=== PATIENT | male | born 1960 | race American Indian/Alaskan Native ===

== ENCOUNTER 2018-10-22 19:48 | Inpatient (IN) | payer MEDICARE ==
[2018-10-22] MEDS ORDERED: ZOFRAN IV ONE ×2 (20:07→20:50)
[2018-10-22] MEDS ORDERED: ZOFRAN ONE (20:08)
[2018-10-22] MEDS ORDERED: NACL 0.9% 500 ML 500 ML IV ONE (20:08)
--- NOTE | 2018-10-22 20:16 | Emergency Department Report ---
ED Altered Mental Status HPI - General Chief Complaint: Altered Mental Status Stated Complaint: AMS Time Seen by Provider: 10/22/18 20:03 Source: EMS, RN notes reviewed, old records reviewed Mode of arrival: Stretcher Limitations: Altered Mental Status - History of Present Illness Initial Comments: Mr. Villegas is a 58 yo male with hx of diabetes mellitus and dyslipidemia who presents with altered mental status. He has been sleeping all day. Last known normal noon. He is normally conversant and ambulatory. Has evidence of left foot amputation. He was discovered by nephew. No reported hx of known depression. He has been a little down since a close family friend left the home in 2017. Has been lonely. Limited hx from EMR. ONly one previous ED visit in 2012 for foot pain. Patient is currently altered and nonverbal. MD Complaint: altered mental status, decreased responsiveness -: This afternoon Severity: severe Consistency of Symptoms: constant Context: diabetes - Related Data Home Medications Medication Instructions Recorded Confirmed Last Taken No Known Home Medications [No 03/24/13 03/24/13 Unknown Reported Home Medications] Allergies Allergy/AdvReac Type Severity Reaction Status Date / Time No Known Allergies Allergy Verified 03/24/13 05:37 ED Review of Systems ROS: Stated complaint: AMS Other details as noted in HPI Comment: Unobtainable due to pts medical conditions (altered mental status) ED Past Medical Hx - Past Medical History Previous Medical History?: Yes Hx Diabetes: Yes - Surgical History Additional Surgical History: Hernia Repair, Chest tube placement - Social History Smoking Status: Never Smoker Substance Use Type: None - Medications Home Medications: Home Medications Medication Instructions Recorded Confirmed Last Taken Type No Known Home Medications [No 03/24/13 03/24/13 Unknown History Reported Home Medications] ED Physical Exam - General Limitations: Altered Mental Status General appearance: lethargic, other (yawning, moving head, shrugging, will nod to questions) - Head Head exam: Present: atraumatic, normocephalic - Eye Eye exam: Present: scleral icterus, conjunctival injection - ENT ENT exam: Present: mucous membranes dry - Neck Neck exam: Present: normal inspection, full ROM. Absent: tenderness, meningismus - Respiratory Respiratory exam: Present: normal lung sounds bilaterally. Absent: respiratory distress, wheezes, rales, rhonchi - Cardiovascular Cardiovascular Exam: Present: regular rate, normal rhythm, normal heart sounds - GI/Abdominal GI/Abdominal exam: Present: soft. Absent: distended, tenderness, guarding, rebound - External exam: Present: normal external exam - Extremities Exam Extremities exam: Present: normal inspection - Neurological Exam Neurological exam: Present: altered - Psychiatric Psychiatric exam: Present: other (odd affect) - Skin Skin exam: Present: intact - Assessment Assessment Interval: Baseline - Level of Consciousness 1a. Level of Consciousness: arousable/minor stimuli - LOC Questions 1b. LOC Questions: aphasic - LOC Command 1c. LOC Commands: performs 1 task correctly - Best Gaze 2. Best Gaze: normal - Visual 3. Visual: no visual loss - Facial Palsy 4. Facial Palsy: normal symmetrical movement - Motor Arm 5b. Motor Arm Right: no drift - Motor Leg 6a. Motor Leg Left: no drift 6b. Motor Leg Right: no drift - Limb Ataxia 7. Limb Ataxia: absent - Sensory 8. Sensory: normal - Best Language 9. Best Language: severe aphasia - Dysarthria 10. Dysarthria: severe dysarthria - Extinction and Inattention 11. Extinction/Inattention: no abnormality ED Course Vital Signs 10/22/18 10/22/18 10/22/18 19:54 19:57 21:10 Temperature 97.4 F L Pulse Rate 86 89 99 H Respiratory 18 19 23 Rate Blood Pressure 130/64 125/74 154/80 [Right] O2 Sat by Pulse 99 98 99 Oximetry 10/22/18 21:53 Temperature Pulse Rate 102 H Respiratory 24 Rate Blood Pressure 115/63 [Right] O2 Sat by Pulse 99 Oximetry - Moderate Sedation Indications: other (vascath insertion by vascular surgeon for emergent dialysis) ASA Class: II Mallampati Airway Score: 2 Preparation: laboratory monitor applied, pulse oximeter, capnometry used, supplemental O2 applied, reversal agents at bedside, IV secured Ketamine: IV Ketamine Dose: 80 Complications: none Patient Tolerated Procedure: well Additional Comments: Family members consented for hemodialysis and vascath insertion with nephrol ogist showroom consultant. Moderate sedation required for vascath access due to acute encephalopathy. - Lab Data Result diagrams: 10/22/18 20:10 10/22/18 20:10 Lab Results 10/22/18 10/22/18 10/22/18 Range/Units 19:59 20:09 20:10 WBC 12.7 H (4.5-11.0) K/mm3 RBC 4.91 (3.65-5.03) M/mm3 Hgb 15.0 (11.8-15.2) gm/dl Hct 42.5 (35.5-45.6) % MCV 87 (84-94) fl MCH 31 (28-32) pg MCHC 35 H (32-34) % RDW 14.0 (13.2-15.2) % Plt Count 265 (140-440) K/mm3 Lymph # [employer] Add Manual Diff Complete Total Counted 100 Seg Neuts % (Manual) 62.0 (40.0-70.0) % Band Neutrophils % 1.0 % Lymphocytes % (Manual) 24.0 (13.4-35.0) % Reactive Lymphs % (Man) 0 % Monocytes % (Manual) 12.0 H (0.0-7.3) % Eosinophils % (Manual) 0 (0.0-4.3) % Basophils % (Manual) 1.0 (0.0-1.8) % Metamyelocytes % 0 % Myelocytes % 0 % Promyelocytes % 0 % Blast Cells % 0 % Nucleated RBC % Not Reportable Seg Neutrophils # Man 7.9 H (1.8-7.7) K/mm3 Band Neutrophils # 0.1 K/mm3 Lymphocytes # (Manual) 3.0 (1.2-5.4) K/mm3 Abs React Lymphs (Man) 0.0 K/mm3 Monocytes # (Manual) 1.5 H (0.0-0.8) K/mm3 Eosinophils # (Manual) 0.0 (0.0-0.4) K/mm3 Basophils # (Manual) 0.1 (0.0-0.1) K/mm3 Metamyelocytes # 0.0 K/mm3 Myelocytes # 0.0 K/mm3 Promyelocytes # 0.0 K/mm3 Blast Cells # 0.0 K/mm3 WBC Morphology Not Reportable Hypersegmented Neuts Not Reportable Hyposegmented Neuts Not Reportable Hypogranular Neuts Not Reportable Smudge Cells Not Reportable Toxic Granulation Not Reportable Toxic Vacuolation Not Reportable Dohle Bodies Not Reportable Pelger-Huet Anomaly Not Reportable Martha Rods Not Reportable Platelet Estimate Appears normal Clumped Platelets Not Reportable Plt Clumps, EDTA Not Reportable Large Platelets Not Reportable Giant Platelets Not Reportable Platelet Satelliting Not Reportable Plt Morphology Comment Not Reportable RBC Morphology Normal Dimorphic RBCs Not Reportable Polychromasia Not Reportable Hypochromasia Not Reportable Poikilocytosis Not Reportable Anisocytosis Not Reportable Microcytosis Not Reportable Macrocytosis Not Reportable Spherocytes Not Reportable Pappenheimer Bodies Not Reportable Sickle Cells Not Reportable Target Cells Not Reportable Tear Drop Cells Not Reportable Ovalocytes Not Reportable Helmet Cells Not Reportable Tristan-Houlton Bodies Not Reportable Burton Rings Not Reportable Gee Cells Not Reportable Bite Cells Not Reportable Crenated Cell Not Reportable Elliptocytes Not Reportable Acanthocytes (Spur) Not Reportable Rouleaux Not Reportable Hemoglobin C Crystals Not Reportable Schistocytes Not Reportable Malaria parasites Not Reportable Trip Bodies Not Reportable Hem Pathologist Commnt No PT (12.2-14.9) Sec. INR (0.87-1.13) APTT (24.2-36.6) Sec. Sodium (137-145) mmol/L Potassium (3.6-5.0) mmol/L Chloride (98-107) mmol/L Carbon Dioxide (22-30) mmol/L Anion Gap mmol/L BUN (9-20) mg/dL Creatinine (0.8-1.5) mg/dL Estimated GFR ml/min BUN/Creatinine Ratio % Glucose (75-100) mg/dL POC Glucose 118 H (70-105) Lactic Acid (0.7-2.0) mmol/L Calcium (8.4-10.2) mg/dL Total Bilirubin (0.1-1.2) mg/dL Direct Bilirubin (0-0.2) mg/dL Indirect Bilirubin mg/dL AST (5-40) units/L ALT (7-56) units/L Alkaline Phosphatase (35-129) units/L Ammonia (25-60) umol/L Troponin T (0.00-0.029) ng/mL Total Protein (6.3-8.2) g/dL Albumin (3.9-5) g/dL Albumin/Globulin Ratio % TSH (0.270-4.200) mlU/mL Urine Color (Yellow) Urine Turbidity (Clear) Urine pH (5.0-7.0) Ur Specific [place] (1.003-1.030) Urine Protein (Negative) mg/dL Urine Glucose (UA) (Negative) mg/dL Urine Ketones (Negative) mg/dL Urine Blood (Negative) Urine Nitrite (Negative) Urine Bilirubin (Negative) Urine Urobilinogen (<2.0) mg/dL Ur Leukocyte Esterase (Negative) Urine WBC (Auto) (0.0-6.0) /HPF Urine RBC (Auto) (0.0-6.0) /HPF U Epithel Cells (Auto) (0-13.0) /HPF Salicylates (2.8-20.0) mg/dL Urine Opiates Screen Presumptive negative Urine Methadone Screen Presumptive negative Acetaminophen (10.0-30.0) ug/mL Ur Barbiturates Screen Presumptive negative Ur Phencyclidine Scrn Presumptive negative Ur Amphetamines Screen Presumptive negative U Benzodiazepines Scrn Presumptive negative Urine Cocaine Screen Presumptive negative U Marijuana (THC) Screen Presumptive negative Drugs of Abuse Note Disclamer Plasma/Serum Alcohol (0-0.07) % 10/22/18 10/22/18 10/22/18 Range/Units 20:10 20:10 20:10 WBC (4.5-11.0) K/mm3 RBC (3.65-5.03) M/mm3 Hgb (11.8-15.2) gm/dl Hct (35.5-45.6) % MCV (84-94) fl MCH (28-32) pg MCHC (32-34) % RDW (13.2-15.2) % Plt Count (140-440) K/mm3 Lymph # Add Manual Diff Total Counted Seg Neuts % (Manual) (40.0-70.0) % Band Neutrophils % % Lymphocytes % (Manual) (13.4-35.0) % Reactive Lymphs % (Man) % Monocytes % (Manual) (0.0-7.3) % Eosinophils % (Manual) (0.0-4.3) % Basophils % (Manual) (0.0-1.8) % Metamyelocytes % % Myelocytes % % Promyelocytes % % Blast Cells % % Nucleated RBC % Seg Neutrophils # Man (1.8-7.7) K/mm3 Band Neutrophils # K/mm3 Lymphocytes # (Manual) (1.2-5.4) K/mm3 Abs React Lymphs (Man) K/mm3 Monocytes # (Manual) (0.0-0.8) K/mm3 Eosinophils # (Manual) (0.0-0.4) K/mm3 Basophils # (Manual) (0.0-0.1) K/mm3 Metamyelocytes # K/mm3 Myelocytes # K/mm3 Promyelocytes # K/mm3 Blast Cells # K/mm3 WBC Morphology Hypersegmented Neuts Hyposegmented Neuts Hypogranular Neuts Smudge Cells Toxic Granulation Toxic Vacuolation Dohle Bodies Pelger-Huet Anomaly Martha Rods Platelet Estimate Clumped Platelets Plt Clumps, EDTA Large Platelets Giant Platelets Platelet Satelliting Plt Morphology Comment RBC Morphology Dimorphic RBCs Polychromasia Hypochromasia Poikilocytosis Anisocytosis Microcytosis Macrocytosis Spherocytes Pappenheimer Bodies Sickle Cells Target Cells Tear Drop Cells Ovalocytes Helmet Cells Tristan-Houlton Bodies Burton Rings [place] Cells Bite Cells Crenated Cell Elliptocytes Acanthocytes (Spur) Rouleaux Hemoglobin C Crystals Schistocytes Malaria parasites Trip Bodies Hem Pathologist Commnt PT (12.2-14.9) Sec. INR (0.87-1.13) APTT (24.2-36.6) Sec. Sodium 139 (137-145) mmol/L Potassium 3.4 L (3.6-5.0) mmol/L Chloride 99.5 (98-107) mmol/L Carbon Dioxide 21 L (22-30) mmol/L Anion Gap 22 mmol/L BUN 14 (9-20) mg/dL Creatinine 0.8 (0.8-1.5) mg/dL Estimated GFR > 60 ml/min BUN/Creatinine Ratio 18 % Glucose 137 H (75-100) mg/dL POC Glucose (70-105) Lactic Acid (0.7-2.0) mmol/L Calcium 9.8 (8.4-10.2) mg/dL Total Bilirubin (0.1-1.2) mg/dL Direct Bilirubin (0-0.2) mg/dL Indirect Bilirubin mg/dL AST (5-40) units/L ALT (7-56) units/L Alkaline Phosphatase (35-129) units/L Ammonia 43.0 (25-60) umol/L Troponin T (0.00-0.029) ng/mL Total Protein (6.3-8.2) g/dL Albumin (3.9-5) g/dL Albumin/Globulin Ratio % TSH (0.270-4.200) mlU/mL Urine Color (Yellow) Urine Turbidity (Clear) Urine pH (5.0-7.0) Ur Specific [place] (1.003-1.030) Urine Protein (Negative) mg/dL Urine Glucose (UA) (Negative) mg/dL Urine Ketones (Negative) mg/dL Urine Blood (Negative) Urine Nitrite (Negative) Urine Bilirubin (Negative) Urine Urobilinogen (<2.0) mg/dL Ur Leukocyte Esterase (Negative) Urine WBC (Auto) (0.0-6.0) /HPF Urine RBC (Auto) (0.0-6.0) /HPF U Epithel Cells (Auto) (0-13.0) /HPF Salicylates (2.8-20.0) mg/dL Urine Opiates Screen Urine Methadone Screen Acetaminophen (10.0-30.0) ug/mL Ur Barbiturates Screen Ur Phencyclidine Scrn Ur Amphetamines Screen U Benzodiazepines Scrn Urine Cocaine Screen U Marijuana (THC) Screen Drugs of Abuse Note Plasma/Serum Alcohol < 0.01 (0-0.07) % 10/22/18 10/22/18 10/22/18 Range/Units 20:10 20:10 20:10 WBC (4.5-11.0) K/mm3 RBC (3.65-5.03) M/mm3 Hgb (11.8-15.2) gm/dl Hct (35.5-45.6) % MCV (84-94) fl MCH (28-32) pg MCHC (32-34) % RDW (13.2-15.2) % Plt Count (140-440) K/mm3 Lymph # Add Manual Diff Total Counted Seg Neuts % (Manual) (40.0-70.0) % Band Neutrophils % % Lymphocytes % (Manual) (13.4-35.0) % Reactive Lymphs % (Man) % Monocytes % (Manual) (0.0-7.3) % Eosinophils % (Manual) (0.0-4.3) % Basophils % (Manual) (0.0-1.8) % Metamyelocytes % % Myelocytes % % Promyelocytes % % Blast Cells % % Nucleated RBC % Seg Neutrophils # Man (1.8-7.7) K/mm3 Band Neutrophils # K/mm3 Lymphocytes # (Manual) (1.2-5.4) K/mm3 Abs React Lymphs (Man) K/mm3 Monocytes # (Manual) (0.0-0.8) K/mm3 Eosinophils # (Manual) (0.0-0.4) K/mm3 Basophils # (Manual) (0.0-0.1) K/mm3 Metamyelocytes # K/mm3 Myelocytes # K/mm3 Promyelocytes # K/mm3 Blast Cells # K/mm3 WBC Morphology Hypersegmented Neuts Hyposegmented Neuts Hypogranular Neuts Smudge Cells Toxic Granulation Toxic Vacuolation Dohle Bodies Pelger-Huet Anomaly Martha Rods Platelet Estimate Clumped Platelets Plt Clumps, EDTA Large Platelets Giant Platelets Platelet Satelliting Plt Morphology Comment RBC Morphology Dimorphic RBCs Polychromasia Hypochromasia Poikilocytosis Anisocytosis Microcytosis Macrocytosis Spherocytes Pappenheimer Bodies Sickle Cells Target Cells Tear Drop Cells Ovalocytes Helmet Cells Tristan-Houlton Bodies Burton Rings [place] Cells Bite Cells Crenated Cell Elliptocytes Acanthocytes (Spur) Rouleaux Hemoglobin C Crystals Schistocytes Malaria parasites Trip Bodies Hem Pathologist Commnt PT 12.9 (12.2-14.9) Sec. INR 1.00 (0.87-1.13) APTT 25.9 (24.2-36.6) Sec. Sodium (137-145) mmol/L Potassium (3.6-5.0) mmol/L Chloride (98-107) mmol/L Carbon Dioxide (22-30) mmol/L Anion Gap mmol/L BUN (9-20) mg/dL Creatinine (0.8-1.5) mg/dL Estimated GFR ml/min BUN/Creatinine Ratio % Glucose (75-100) mg/dL POC Glucose (70-105) Lactic Acid 1.90 (0.7-2.0) mmol/L Calcium (8.4-10.2) mg/dL Total Bilirubin 0.20 (0.1-1.2) mg/dL Direct Bilirubin < 0.2 (0-0.2) mg/dL Indirect Bilirubin 0.0 mg/dL AST 15 (5-40) units/L ALT 14 (7-56) units/L Alkaline Phosphatase 47 (35-129) units/L Ammonia (25-60) umol/L Troponin T < 0.010 (0.00-0.029) ng/mL Total Protein 7.6 (6.3-8.2) g/dL Albumin 4.5 (3.9-5) g/dL Albumin/Globulin Ratio 1.5 % TSH (0.270-4.200) mlU/mL Urine Color (Yellow) Urine Turbidity (Clear) Urine pH (5.0-7.0) Ur Specific [place] (1.003-1.030) Urine Protein (Negative) mg/dL Urine Glucose (UA) (Negative) mg/dL Urine Ketones (Negative) mg/dL Urine Blood (Negative) Urine Nitrite (Negative) Urine Bilirubin (Negative) Urine Urobilinogen (<2.0) mg/dL Ur Leukocyte Esterase (Negative) Urine WBC (Auto) (0.0-6.0) /HPF Urine RBC (Auto) (0.0-6.0) /HPF U Epithel Cells (Auto) (0-13.0) /HPF Salicylates (2.8-20.0) mg/dL Urine Opiates Screen Urine Methadone Screen Acetaminophen (10.0-30.0) ug/mL Ur Barbiturates Screen Ur Phencyclidine Scrn Ur Amphetamines Screen U Benzodiazepines Scrn Urine Cocaine Screen U Marijuana (THC) Screen Drugs of Abuse Note Plasma/Serum Alcohol (0-0.07) % 10/22/18 10/22/18 10/22/18 Range/Units 20:10 20:10 20:10 WBC (4.5-11.0) K/mm3 RBC (3.65-5.03) M/mm3 Hgb (11.8-15.2) gm/dl Hct (35.5-45.6) % MCV (84-94) fl MCH (28-32) pg MCHC (32-34) % RDW (13.2-15.2) % Plt Count (140-440) K/mm3 Lymph # Add Manual Diff Total Counted Seg Neuts % (Manual) (40.0-70.0) % Band Neutrophils % % Lymphocytes % (Manual) (13.4-35.0) % Reactive Lymphs % (Man) % Monocytes % (Manual) (0.0-7.3) % Eosinophils % (Manual) (0.0-4.3) % Basophils % (Manual) (0.0-1.8) % Metamyelocytes % % Myelocytes % % Promyelocytes % % Blast Cells % % Nucleated RBC % Seg Neutrophils # Man (1.8-7.7) K/mm3 Band Neutrophils # K/mm3 Lymphocytes # (Manual) (1.2-5.4) K/mm3 Abs React Lymphs (Man) K/mm3 Monocytes # (Manual) (0.0-0.8) K/mm3 Eosinophils # (Manual) (0.0-0.4) K/mm3 Basophils # (Manual) (0.0-0.1) K/mm3 Metamyelocytes # K/mm3 Myelocytes # K/mm3 Promyelocytes # K/mm3 Blast Cells # K/mm3 WBC Morphology Hypersegmented Neuts Hyposegmented Neuts Hypogranular Neuts Smudge Cells Toxic Granulation Toxic Vacuolation Dohle Bodies Pelger-Huet Anomaly Martha Rods Platelet Estimate Clumped Platelets Plt Clumps, EDTA Large Platelets Giant Platelets Platelet Satelliting Plt Morphology Comment RBC Morphology Dimorphic RBCs Polychromasia Hypochromasia Poikilocytosis Anisocytosis Microcytosis Macrocytosis Spherocytes Pappenheimer Bodies Sickle Cells Target Cells Tear Drop Cells Ovalocytes Helmet Cells Tristan-Houlton Bodies Burton Rings Gee Cells Bite Cells Crenated Cell Elliptocytes Acanthocytes (Spur) Rouleaux Hemoglobin C Crystals Schistocytes Malaria parasites Trip Bodies Hem Pathologist Commnt PT (12.2-14.9) Sec. INR (0.87-1.13) APTT (24.2-36.6) Sec. Sodium (137-145) mmol/L Potassium (3.6-5.0) mmol/L Chloride (98-107) mmol/L Carbon Dioxide (22-30) mmol/L Anion Gap mmol/L BUN (9-20) mg/dL Creatinine (0.8-1.5) mg/dL Estimated GFR ml/min BUN/Creatinine Ratio % Glucose (75-100) mg/dL POC Glucose (70-105) Lactic Acid (0.7-2.0) mmol/L Calcium (8.4-10.2) mg/dL Total Bilirubin (0.1-1.2) mg/dL Direct Bilirubin (0-0.2) mg/dL Indirect Bilirubin mg/dL AST (5-40) units/L ALT (7-56) units/L Alkaline Phosphatase (35-129) units/L Ammonia (25-60) umol/L Troponin T (0.00-0.029) ng/mL Total Protein (6.3-8.2) g/dL Albumin (3.9-5) g/dL Albumin/Globulin Ratio % TSH 1.150 (0.270-4.200) mlU/mL Urine Color (Yellow) Urine Turbidity (Clear) Urine pH (5.0-7.0) Ur Specific [place] (1.003-1.030) Urine Protein (Negative) mg/dL Urine Glucose (UA) (Negative) mg/dL Urine Ketones (Negative) mg/dL Urine Blood (Negative) Urine Nitrite (Negative) Urine Bilirubin (Negative) Urine Urobilinogen (<2.0) mg/dL Ur Leukocyte Esterase (Negative) Urine WBC (Auto) (0.0-6.0) /HPF Urine RBC (Auto) (0.0-6.0) /HPF U Epithel Cells (Auto) (0-13.0) /HPF Salicylates 34.0 H (2.8-20.0) mg/dL Urine Opiates Screen Urine Methadone Screen Acetaminophen 146.2 H (10.0-30.0) ug/mL Ur Barbiturates Screen Ur Phencyclidine Scrn Ur Amphetamines Screen U Benzodiazepines Scrn Urine Cocaine Screen U Marijuana (THC) Screen Drugs of Abuse Note Plasma/Serum Alcohol (0-0.07) % 10/22/18 10/22/18 Range/Units 20:32 22:01 WBC (4.5-11.0) K/mm3 RBC (3.65-5.03) M/mm3 Hgb (11.8-15.2) gm/dl Hct (35.5-45.6) % MCV (84-94) fl MCH (28-32) pg MCHC (32-34) % RDW (13.2-15.2) % Plt Count (140-440) K/mm3 Lymph # Add Manual Diff Total Counted Seg Neuts % (Manual) (40.0-70.0) % Band Neutrophils % % Lymphocytes % (Manual) (13.4-35.0) % Reactive Lymphs % (Man) % Monocytes % (Manual) (0.0-7.3) % Eosinophils % (Manual) (0.0-4.3) % Basophils % (Manual) (0.0-1.8) % Metamyelocytes % % Myelocytes % % Promyelocytes % % Blast Cells % % Nucleated RBC % Seg Neutrophils # Man (1.8-7.7) K/mm3 Band Neutrophils # K/mm3 Lymphocytes # (Manual) (1.2-5.4) K/mm3 Abs React Lymphs (Man) K/mm3 Monocytes # (Manual) (0.0-0.8) K/mm3 Eosinophils # (Manual) (0.0-0.4) K/mm3 Basophils # (Manual) (0.0-0.1) K/mm3 Metamyelocytes # K/mm3 Myelocytes # K/mm3 Promyelocytes # K/mm3 Blast Cells # K/mm3 WBC Morphology Hypersegmented Neuts Hyposegmented Neuts Hypogranular Neuts Smudge Cells Toxic Granulation Toxic Vacuolation Dohle Bodies Pelger-Huet Anomaly Martha Rods Platelet Estimate Clumped Platelets Plt Clumps, EDTA Large Platelets Giant Platelets Platelet Satelliting Plt Morphology Comment RBC Morphology Dimorphic RBCs Polychromasia Hypochromasia Poikilocytosis Anisocytosis Microcytosis Macrocytosis Spherocytes Pappenheimer Bodies Sickle Cells Target Cells Tear Drop Cells Ovalocytes Helmet Cells Tristan-Houlton Bodies Burton Rings [place] Cells Bite Cells Crenated Cell Elliptocytes Acanthocytes (Spur) Rouleaux Hemoglobin C Crystals Schistocytes Malaria parasites Trip Bodies Hem Pathologist Commnt PT (12.2-14.9) Sec. INR (0.87-1.13) APTT (24.2-36.6) Sec. Sodium (137-145) mmol/L Potassium (3.6-5.0) mmol/L Chloride (98-107) mmol/L Carbon Dioxide (22-30) mmol/L Anion Gap mmol/L BUN (9-20) mg/dL Creatinine (0.8-1.5) mg/dL Estimated GFR ml/min BUN/Creatinine Ratio % Glucose (75-100) mg/dL POC Glucose (70-105) Lactic Acid (0.7-2.0) mmol/L Calcium (8.4-10.2) mg/dL Total Bilirubin (0.1-1.2) mg/dL Direct Bilirubin (0-0.2) mg/dL Indirect Bilirubin mg/dL AST (5-40) units/L ALT (7-56) units/L Alkaline Phosphatase (35-129) units/L Ammonia (25-60) umol/L Troponin T (0.00-0.029) ng/mL Total Protein (6.3-8.2) g/dL Albumin (3.9-5) g/dL Albumin/Globulin Ratio % TSH (0.270-4.200) mlU/mL Urine Color Yellow (Yellow) Urine Turbidity Clear (Clear) Urine pH 7.0 (5.0-7.0) Ur Specific [place] 1.013 (1.003-1.030) Urine Protein <15 mg/dl (Negative) mg/dL Urine Glucose (UA) 50 (Negative) mg/dL Urine Ketones Neg (Negative) mg/dL Urine Blood Neg (Negative) Urine Nitrite Neg (Negative) Urine Bilirubin Neg (Negative) Urine Urobilinogen < 2.0 (<2.0) mg/dL Ur Leukocyte Esterase Neg (Negative) Urine WBC (Auto) < 1.0 (0.0-6.0) /HPF Urine RBC (Auto) 2.0 (0.0-6.0) /HPF U Epithel Cells (Auto) < 1.0 (0-13.0) /HPF Salicylates 40.1 H (2.8-20.0) mg/dL Urine Opiates Screen Urine Methadone Screen Acetaminophen (10.0-30.0) ug/mL Ur Barbiturates Screen Ur Phencyclidine Scrn Ur Amphetamines Screen U Benzodiazepines Scrn Urine Cocaine Screen U Marijuana (THC) Screen Drugs of Abuse Note Plasma/Serum Alcohol (0-0.07) % 10/22/18 21:46 EKG obtained 2101 NSR 95 bpm nl axis prolonged QTC diffuse St depression - Radiology Data Radiology results: report reviewed - Medical Decision Making Mr. Villegas presents with altered mental status, acute metabolic toxic encephalopathy. Upon my evaluation he did seem to answer some questions with head and arm gestures. However he was aphasic. He continued to have vomiting. Cold stroke with activated. I spoke with stepdaughter and daughter. With the findings of toxic salicylate and acetaminophen levels, suspect intentional overdose. According to hx, patient was sleeping all day. Suspect overdose occurred earlier this morning. I asked brandee to go to to home and look for pill bottles. I spoke with [place] poison control who agreed with IV acetadote. Recommended KUB to rule out bezoar and q2h salicylate levels. spoke with Dr. Lopes toxicolog ist. She recommended alkalinization with with sodium bicarbonate infusion. Also recommended potassium aggressive repletion. Also recommended dialysis considering altered mental status. Altered Mental status could reflect cerebral edema Brandee found multliple empty and half empty bottles near his bed and on night stand. Stomach relief bismuth subsaliicylate, isopropryl alcohol, imodi um, headache relief = two bottles empty which previously contained 200 caplets with acetaminophen, aspirin and caffeine. Each tablet contains acetaminophen 250 mg aspirin 250 mg caffeine [address] Atkinson pharmacy technician assistant evaluated patient and arranged from dialysis. Dr. Goel vascular surgeon placed vascath. I discussed case again with flower cutter Dr. Lopes who strongly recommended against intubation. Mechanical ventilation will not keep up with respiratory drive and worsening acidotic state. She encouraged moderate sedation for vascath insertion. Ketamine provided adequate sedation. Unknown last PO intake in altered patient. Dr. Bill polymer materials consultant consulted Dr. Salgado hospitalist will admit. admitted to ICU in guarded condition 1013 involuntary hold instituted Critical Care Time: Yes Critical care time in (mins) excluding proc time.: 100 Critical care attestation.: If time is entered above; I have spent that time in minutes in the direct care of this critically ill patient, excluding procedure time. 100 minutes of critical care time excluding procedures were used in the care of the patient. Patient required multiple assessments and interventions. I spoke extensively with Sr. Byrne by phone. I spoke with brandee at the bedside. I spoke with neurologist who evaluated patient via video camera. I also spoke with [place] poison control. I spoke with toxicology. I spoke with vascular surgeon,. I reviewed the electronic medical record. I spoke with consultants involved in the care of the patient. ED Disposition Clinical Impression: Acute metabolic encephalopathy, Intentional drug overdose, Acetaminophen overdose, Salicylate overdose, Isopropyl alcohol poisoning Disposition: DC-09 OP ADMIT IP TO THIS HOSP Is pt being admited?: Yes Does the pt Need Aspirin: No Condition: Stable
[2018-10-22 20:19] LABS: Hematocrit 42.5 % (35.5-45.6); Mean Corpuscular HGB Conc 35 % (32-34); Mean Corpuscular Volume 87 fl (84-94); Platelet Count 265 K/mm3 (140-440); Red Blood Count 4.91 M/mm3 (3.65-5.03)
[2018-10-22 20:34] LABS: Partial Thromboplastin Time 25.9 Sec. (24.2-36.6)
[2018-10-22 20:40] LABS: BUN/Creatinine Ratio 18; Blood Urea Nitrogen 14 mg/dL (9-20); Calcium 9.8 mg/dL (8.4-10.2); Hemolysis Index 10
[2018-10-22 20:42] LABS: Alanine Aminotransferase 14 units/L (7-56); Albumin 4.5 g/dL (3.9-5)
[2018-10-22 20:48] LABS: Bilirubin,Direct < 0.2 mg/dL (0-0.2)
[2018-10-22 20:51] LABS: Bilirubin,Urine NEG (Negative); Blood,Urine NEG (Negative); Color,Urine Yellow (Yellow); Protein,Urine <15 mg/dL mg/dL (Negative); Urobilinogen,Urine < 2.0 mg/dL (<2.0); WBC,Urine < 1.0 /HPF (0.0-6.0)
[2018-10-22 20:58] LABS: Amphetamine Screen,Urine PRESUMPTIVE NEGATIVE; Benzodiazepines Screen,Urine PRESUMPTIVE NEGATIVE; Cannabinoid Screen,Urine PRESUMPTIVE NEGATIVE; Cocaine Screen,Urine PRESUMPTIVE NEGATIVE; Methadone Screen,Urine PRESUMPTIVE NEGATIVE; Opiate Screen,Urine PRESUMPTIVE NEGATIVE
--- NOTE | 2018-10-22 20:58 | Consultation ---
History of Present Illness History of present illness: [facility] Consult [facility] Impression: Patient with encephalopathy, nausea/vomiting. Only focal deficits noted are mutism and very slight left nasolabial fold flattening of unknown chronicity. Given mutism, will rule out LVO with CTA head/neck. His salicylate and APAP levels are elevated, as is his WBC count, so this may be more of a toxic/metabolic process. Not a tpa candidate due to: out of window Differential Diagnosis: 1. Cardioembolic stroke 2. Small vessel disease/lacune 3. Thromboembolic, swlpbj-ga-bzkadi mechanism 4. Hypercoagulable state-related infarct 5. Transient ischemic attack 6. Thrombotic mechanism, large artery disease 7. Toxic/metabolic encephalopathy Comments: Door time: 1947 [facility] contacted: 2037 [facility] at bedside: 2041 NIHSS assessment time: 2052 (pt in CT on log in) Recommendations: CTA head/neck to rule out LVO inpatient neurology consultation Inpatient stroke evaluation as per Neurology/ Internal Medicine Discussed with ED MD CC: stroke alert History of Present Illness Patient is a58 year old man with a history of DM, left AKA, HLD who presents with AMS. Last seen normal at 1200 by family. Family thought he was napping through the day, but this evening it became evident he was altered. He has been mute and not following commands. He was noted to have vomiting in the ED. Diagnostic: CT head wo - nothing acute Exam: NIHSS score: 18 Mute, not following commands, a little agitated, wretching, moving all limbs symmetrically with equal drift, withdraws to nox stim in all extremities Medical Decision Making: - Extensive number of diagnosis or management options are considered above. - Extensive amount of complex data reviewed. - High risk of complication and/or morbidity or mortality are associated with differential diagnostic considerations above. - There may be Uncertain outcome and increased probability of prolonged functional impairment or high probability of severe prolonged functional impairment associated with some of these differential diagnosis. Medical Data Reviewed: 1.Data reviewed include clinical labs, radiology, Medical Tests; 2.Tests results discussed w/performing or interpreting physician; 3.Obtaining/reviewing old medical records; 4.Obtaining case history from another source; 5.Independent review of image, tracing or specimen. Patient was informed the Neurology Consult would happen via TeleHealth consult by way of interactive audio and video telecommunications and consented to receiving care in this manner. Medications and Allergies Allergies Allergy/AdvReac Type Severity Reaction Status Date / Time No Known Allergies Allergy Verified 03/24/13 05:37 Home Medications Medication Instructions Recorded Confirmed Last Taken Type No Known Home Medications [No 03/24/13 03/24/13 Unknown History Reported Home Medications] Physical Examination - Vital Signs Vital Signs: Vital Signs Temp Pulse Resp BP Pulse Ox 97.4 F L 86 18 130/64 99 10/22/18 19:54 10/22/18 19:54 10/22/18 19:54 10/22/18 19:54 10/22/18 19:54 - Level of Consciousness 1a. Level of Consciousness: alert/keenly responsive - LOC Questions 1b. LOC Questions: aphasic - LOC Command 1c. LOC Commands: performs no tasks correctly - Best Gaze 2. Best Gaze: normal - Visual 3. Visual: no visual loss - Facial Palsy 4. Facial Palsy: minor paralysis - Motor Arm 5a. Motor Arm Left: some gravity effort 5b. Motor Arm Right: some gravity effort - Motor Leg 6a. Motor Leg Left: some gravity effort 6b. Motor Leg Right: some gravity effort - Limb Ataxia 7. Limb Ataxia: absent - Sensory 8. Sensory: normal - Best Language 9. Best Language: mute/global aphasia - Dysarthria 10. Dysarthria: mute/anarrthric - Extinction and Inattention 11. Extinction/Inattention: no abnormality - Scoring Total Score: 18 Stroke Severity: Moderate to Severe Stroke Results - Laboratory Findings CBC and BMP: 10/22/18 20:10 10/22/18 20:10 Abnormal Lab Findings: Abnormal Labs 10/22/18 10/22/18 10/22/18 19:59 20:10 20:10 WBC 12.7 H MCHC 35 H Potassium 3.4 L Carbon Dioxide 21 L Glucose 137 H POC Glucose 118 H Salicylates Acetaminophen 10/22/18 10/22/18 20:10 20:10 WBC MCHC Potassium Carbon Dioxide Glucose POC Glucose Salicylates 34.0 H Acetaminophen 146.2 H
[2018-10-22] MEDS ORDERED: NARCAN 0.4 MG/1 ML IV ONE (21:04)
[2018-10-22] MEDS ORDERED: NARCAN 2 MG/2 ML ONE (21:08)
[2018-10-22 21:16] LABS: Band Neutrophils # (Manual) 0.1 K/mm3; Total Cells Counted 100
[2018-10-22 21:17] LABS: Eosinophils % (Manual) 0 % (0.0-4.3)
[2018-10-22 21:18] LABS: RBC Morphology Normal
--- NOTE | 2018-10-22 21:19 | Cat Scan Report ---
CT head/brain wo con INDICATION: Altered Mental Status. TECHNIQUE: Routine CT head without contrast. Sagittal and coronal reformatted images were obtained. A ll CT scans at this location are performed using CT dose reduction for ALARA by means of automated ex posure control. COMPARISON: None. FINDINGS: BRAIN / INTRACRANIAL CONTENTS: No acute hemorrhage, mass effect, midline shift, hydrocephalus, or acu te, large territorial infarct. No chronic infarct or focal atrophy. Normal brain volume and ventricul ar/sulcal size for age. No significant white matter abnormality. CRANIOCERVICAL JUNCTION: No significant abnormality. ORBITS: No significant abnormality of visualized orbits. SINUSES / MASTOIDS: No significant abnormality of the visualized paranasal sinuses or mastoid air arabella ls. ADDITIONAL FINDINGS: None. IMPRESSION: I do not see CT findings to suggest acute territorial infarction. Basal ganglia are normal. Discussed findings with Dr. Hanson at 8:14 PM CDT Signer Name: Judi Hidalgo MD Signed: 10/22/2018 9:14 PM Workstation Name: [id number]
[2018-10-22] MEDS ORDERED: ACETADOTE IV ONE ×4 (21:43→23:00)
[2018-10-22] MEDS ORDERED: D5W IV ONE ×4 (21:43→23:00)
[2018-10-22] MEDS ORDERED: NACL 0.9% 1000 ML 1,000 ML IV ONE ×2 (21:55→22:40)
[2018-10-22] MEDS ORDERED: SODIUM BICARBONATE 50 MEQ in NACL 0.9% 1000 ML 1,000 ML IV ONE (22:07)
[2018-10-22] MEDS ORDERED: REGLAN IV PRN (22:08)
--- NOTE | 2018-10-22 22:23 | XRay Report ---
. CHEST 1 VIEW INDICATION / CLINICAL INFORMATION: Altered Mental Status. COMPARISON: None available. FINDINGS: SUPPORT DEVICES: None. HEART / MEDIASTINUM: No significant abnormality. LUNGS / PLEURA: No significant pulmonary or pleural abnormality.. No pneumothorax. ADDITIONAL FINDINGS: No significant additional findings. IMPRESSION: 1. No acute findings. Signer Name: Benton Dial MD Signed: 10/22/2018 10:19 PM Workstation Name: [id number]
--- NOTE | 2018-10-22 22:24 | XRay Report ---
Abdomen one view INDICATION: Drug ingestion, altered mental status FINDINGS: There is contrast media noted in the renal collecting systems. The bowel gas pattern is unr emarkable. The urinary bladder is distended Signer Name: Benton Dial MD Signed: 10/22/2018 10:20 PM Workstation Name: [id number]
--- NOTE | 2018-10-22 22:47 | Cat Scan Report ---
CTA NECK WITH CONTRAST HISTORY: Change in mental status COMPARISON: None. TECHNIQUE: CTA of the neck was performed. 3-D/MIP reformats were postprocessed. Percentage stenosis is determined by direct quantitative measurements of diseased internal carotid artery diameter harriett red with normal distal internal carotid artery reference segments or by criteria similar to NASCET wh ere applicable. All CT scans at this location are performed using CT dose reduction for ALARA by mean s of automated exposure control. CONTRAST: 100 ml of Isovue 370 FINDINGS: Aortic arch: No significant abnormality. Cervical vertebral arteries: Vertebral arteries are normal from their origin up to basilar formation. Common carotid arteries: Normal. Carotid bifurcations: Normal Cervical internal carotid arteries: No significant abnormality. Additional findings: None. IMPRESSION: Normal carotid bifurcations Signer Name: Judi Hidalgo MD Signed: 10/22/2018 10:42 PM Workstation Name: [id number]
--- NOTE | 2018-10-22 23:07 | Cat Scan Report ---
CTA HEAD WITH CONTRAST HISTORY: aphasia COMPARISON: None. TECHNIQUE: CTA of the head performed. 3-D/MIP reformats postprocessed. CONTRAST: 100 ml of Omnipaque 350 FINDINGS: CTA Head: Intracranial vertebral arteries: Both vertebral arteries and origins of PICA are normal. Basilar artery: Basilar artery and basilar tip are normal. Posterior cerebral arteries: No significant abnormality. Intracranial internal carotid arteries: 50% stenosis seen in the ophthalmic segment of right internal carotid artery. Calcified plaque with the less than 50% narrowing is seen at the ophthalmic segment of left internal carotid artery. Communicating segment and internal carotid artery termination are no rmal. Anterior cerebral arteries: No significant abnormality. Middle cerebral arteries: No significant abnormality. Dural venous sinuses:Not optimally opacified. No significant abnormality. Additional findings: None. IMPRESSION: 50% stenoses in the ophthalmic segment of right internal carotid artery Signer Name: Judi Hidalgo MD Signed: 10/22/2018 11:03 PM Workstation Name: [id number]
--- NOTE | 2018-10-22 23:07 | Consultation ---
History of Present Illness - Reason for Consult Consult date: 10/22/18 - History of Present Illness The patient is a 58 YO male with history significant for Diabetes mellitus, Dyslipidemia and Depression who presented to [facility] ED with altered mental status. Unable to obtain any history from patient at this time and there was no family member at the bedside. Patient was found confused / altered by his nephew. He is usually conversant and ambulatory. There was 2 empty bottles of Acetaminop hen 250 mg and Salicylate (100 pills each) and half empty bottle of Isopropyl alcohol found next to him. Labs were significant for elevated Salicylate and Acetaminophen levels. Poison center recommended hemodialysis due to AMS. Renal function is normal. Nephrology consulted for urgent hemodialysis. Past History Past Medical History: diabetes, hyperlipidemia, other (depression) Medications and Allergies Allergies Allergy/AdvReac Type Severity Reaction Status Date / Time No Known Allergies Allergy Verified 03/24/13 05:37 Home Medications Medication Instructions Recorded Confirmed Last Taken Type No Known Home Medications [No 03/24/13 03/24/13 Unknown History Reported Home Medications] Active Meds: Active Medications Acetylcysteine 4,250 mg/ (Dextrose) 521.25 mls @ 130.313 mls/hr IV ONCE ONE Stop: 10/23/18 02:59 Acetylcysteine 8,500 mg/ (Dextrose) 1,042.5 mls @ 65.156 mls/hr IV ONCE ONE Stop: 10/23/18 18:59 Sodium Bicarbonate 50 meq/ (Sodium Chloride) 1,050 mls @ 150 mls/hr IV DIRECT ONE Stop: 10/23/18 05:06 Potassium Chloride (Kcl 10meq/100ml) 10 meq in 100 mls @ 100 mls/hr IV Q1H MAGAN Stop: 10/23/18 02:59 Sodium Chloride (Nacl 0.9% 1000 Ml) 1,000 mls @ 999 mls/hr IV BOLUS ONE Stop: 10/22/18 23:40 Metoclopramide HCl (Reglan) 10 mg IV Q6H PRN PRN Reason: Nausea And Vomiting Last Admin: 10/22/18 22:16 Dose: 10 mg Documented by: Review of Systems ROS unobtainable: due to mental status Exam - Vital Signs Vital signs: Vital Signs Temp Pulse Resp BP Pulse Ox 97.4 F L 86 18 130/64 99 10/22/18 19:54 10/22/18 19:54 10/22/18 19:54 10/22/18 19:54 10/22/18 19:54 - General Appearance General appearance: well-developed, appears stated age, other (no distress) EENT: ATNC, PERRL, hearing intact Neck: Present: neck supple, trachea midline Respiratory: Clear to Ascultation Heart: regular, S1S2, no murmurs Gastrointestinal: Present: normoactive bowel sounds. Absent: tenderness, distended Integumentary: other (R foot dressing noted) Neurologic: other (stuporous, only able to tell his name, not following any command) Musculoskeletal: Present: other (L BKA) Results - Lab Results 10/22/18 20:10 10/22/18 20:10 Most recent lab results Calcium 9.8 mg/dL (8.4-10.2) 10/22/18 20:10 Assessment and Plan 1. Salicylate toxicity: Patient presented with elevated salicylate level and associated AMS. Continue IV fluids. Recommended treatment is urgent hemodialysis. D/w her sister over the phone and explained the indications, benefits and risks involved in hemodialysis. He voiced understanding and gave phone consent. Vascular consulted for placement of hemodialysis catheter. HD orders placed and vickie PENG informed. 2. FEN: Anion gap MA, HD today. Continue bicarbonate drip. Monitor lytes. 3. Acetaminophen OD: Acetylcyteine. 4. Suspected Isopropyl alcohol ingestion: Isopropyl alcohol level ordered. Urgent HD. 5. AMS: Start on Metoprolol. 6. DM. 7. Depression. Overall prognosis is guarded.
[2018-10-22] MEDS ORDERED: SODIUM CHLORIDE FLUSH SYRINGE 10 ML IV PRN (23:10)
[2018-10-22] MEDS ORDERED: ZOFRAN IV PRN (23:10)
--- NOTE | 2018-10-22 23:17 | History and Physical Report ---
History of Present Illness Date of examination: 10/22/18 History of present illness: 58-year-old man with a history of diabetes as well as the emergency room for evaluation for decreased responsiveness. He had copious amount of nausea vomiting in the emergency room, found to have elevated salicylate and acetaminophen level. he was started on Mucomyst, bicarbonate drip and renal was consulted for emergent dialysis. Patient is unable to give a history, family at bedside. They went home and found bottles of acetaminophen, total of 200 which he had since August, also found that his bedside was Pepto-Bismol, isopropyl alcohol she most likely ingested. Review of system is unobtainable PAST MEDICAL HISTORY:diabetes PAST SURGICAL HISTORY:hernia SOCIAL HISTORY:social alcohol, unknown drugs, no tobacco FAMILY HISTORY: Hypertension Medications and Allergies Allergies Allergy/AdvReac Type Severity Reaction Status Date / Time No Known Allergies Allergy Verified 03/24/13 05:37 Home Medications Medication Instructions Recorded Confirmed Last Taken Type No Known Home Medications [No 03/24/13 03/24/13 Unknown History Reported Home Medications] Active Meds: Active Medications Enoxaparin Sodium (Lovenox) 30 mg SUB-Q QDAY MAGAN Acetylcysteine 4,250 mg/ (Dextrose) 521.25 mls @ 130.313 mls/hr IV ONCE ONE Stop: 10/23/18 02:59 Acetylcysteine 8,500 mg/ (Dextrose) 1,042.5 mls @ 65.156 mls/hr IV ONCE ONE Stop: 10/23/18 18:59 Sodium Bicarbonate 50 meq/ (Sodium Chloride) 1,050 mls @ 150 mls/hr IV DIRECT ONE Stop: 10/23/18 05:06 Potassium Chloride (Kcl 10meq/100ml) 10 meq in 100 mls @ 100 mls/hr IV Q1H MAGAN Stop: 10/23/18 02:59 Sodium Chloride (Nacl 0.9% 1000 Ml) 1,000 mls @ 999 mls/hr IV BOLUS ONE Stop: 10/22/18 23:40 Sodium Chloride (Nacl 0.9% 1000 Ml) 1,000 mls @ 150 mls/hr IV DIRECT MAGAN Metoclopramide HCl (Reglan) 10 mg IV Q6H PRN PRN Reason: Nausea And Vomiting Last Admin: 10/22/18 22:16 Dose: 10 mg Documented by: Ondansetron HCl (Zofran) 4 mg IV Q4H PRN PRN Reason: Nausea And Vomiting Sodium Chloride (Sodium Chloride Flush Syringe 10 Ml) 10 ml IV BID MAGAN Sodium Chloride (Sodium Chloride Flush Syringe 10 Ml) 10 ml IV PRN PRN PRN Reason: LINE FLUSH Exam - Physical Exam Narrative exam: General Apperance: The patient lying in bed, breathing comfortable HEENT: Normocephalic, atraumatic. Pupils equally round and reactive to light, EOMI, no sclericterus or JVD or thyromegaly or nodule. , no carotid bruit, mucous membranes moist, no exudate or erythema Heart: S1-S2, regular is rhythm Lungs: Clear to auscultation bilaterally, breathing comfortable Abdomen: Positive bowel sounds, soft, nontender, nondistended, no organomegaly Extremities: left BKA, No edema cyanosis clubbing Skin: no rash, nodule, warm and dry Neuro: confused - Constitutional Vitals: Temp Pulse Resp BP Pulse Ox 97.4 F L 102 H 24 115/63 99 10/22/18 19:54 10/22/18 21:53 10/22/18 21:53 10/22/18 21:53 10/22/18 21:53 Results - Labs CBC & Chem 7: 10/22/18 20:10 10/22/18 20:10 Labs: Abnormal lab results 10/22/18 10/22/18 10/22/18 Range/Units 19:59 20:10 20:10 WBC 12.7 H (4.5-11.0) K/mm3 MCHC 35 H (32-34) % Monocytes % (Manual) 12.0 H (0.0-7.3) % Seg Neutrophils # Man 7.9 H (1.8-7.7) K/mm3 Monocytes # (Manual) 1.5 H (0.0-0.8) K/mm3 Potassium 3.4 L (3.6-5.0) mmol/L Carbon Dioxide 21 L (22-30) mmol/L Glucose 137 H (75-100) mg/dL POC Glucose 118 H (70-105) Salicylates (2.8-20.0) mg/dL Acetaminophen (10.0-30.0) ug/mL 10/22/18 10/22/18 10/22/18 Range/Units 20:10 20:10 22:01 WBC (4.5-11.0) K/mm3 MCHC (32-34) % Monocytes % (Manual) (0.0-7.3) % Seg Neutrophils # Man (1.8-7.7) K/mm3 Monocytes # (Manual) (0.0-0.8) K/mm3 Potassium (3.6-5.0) mmol/L Carbon Dioxide (22-30) mmol/L Glucose (75-100) mg/dL POC Glucose (70-105) Salicylates 34.0 H 40.1 H (2.8-20.0) mg/dL Acetaminophen 146.2 H (10.0-30.0) ug/mL - Imaging and Cardiology EKG: image reviewed CT Scan - head: report reviewed Assessment and Plan CTA head and neck reviewed Assessment Acetaminophen and salicylate overdose Acute encephalopathy Diabetes Plan Admit to medicine Continue Mucomyst, bicarbonate drip Renal and vascular was consulted for emergent access and dialysis Monitor acetaminophen, salicylate, LFT and PT/INR levels Consult critical care, obtain psych consult when awake Check fingersticks, DVT prophylaxis
[2018-10-22] MEDS ORDERED: NACL 0.9% 1000 ML 1,000 ML IV SCH (23:45)
[2018-10-23 00:07] LABS: INR 1.1 (0.87-1.13); Partial Thromboplastin Time 23.7 Sec. (24.2-36.6)
[2018-10-23] MEDS ORDERED: INTROPIN DRIP 800 MG/D5W 250 ML 800 MG/250 ML BAG IV SCH (00:11)
[2018-10-23] MEDS ORDERED: NACL 0.9% 100 ML IV PRN ×2 (00:19→13:00)
[2018-10-23 00:20] LABS: Alanine Aminotransferase 13 units/L (7-56); Albumin 4.3 g/dL (3.9-5)
[2018-10-23] MEDS ORDERED: QUELICIN IV ONE (00:24)
[2018-10-23] MEDS ORDERED: AMIDATE IV ONE (00:24)
[2018-10-23] MEDS ORDERED: KETALAR IV ONE (00:45)
[2018-10-23] MEDS ORDERED: NACL 0.9% 1000 ML 1,000 ML IV SCH (01:00)
--- NOTE | 2018-10-23 01:10 | Consultation ---
History of Present Illness - Reason for Consult Consult date: 10/23/18 Vas-Cath Insertion Requesting physician: KALIN CAT - History of Present Illness The patient is a 58-year-old male with a history of peripheral vascular disease and diabetes who was brought to the emergency department secondary to acute mental status changes. There was no family available at the time of my evaluation and I was unable to obtain history from the patient secondary to the mental status changes so I obtained the history of present illness from the chart. The patient was reportedly in his normal state around known after he was found by his nephew to have acute mental status changes around mid evening and was found to have an empty bottle of acetaminophen as well as Pepto-Bismol and isopropyl alcohol. It is estimated that he ingested approximately 200 pills of acetaminophen. I will consult for placement of a Vas-Cath for emergent dialysis for management of his acidosis and hopes that it will correct his mental status changes. Past History Past Medical History: diabetes, hyperlipidemia, other (depression) Medications and Allergies Allergies Allergy/AdvReac Type Severity Reaction Status Date / Time No Known Allergies Allergy Verified 03/24/13 05:37 Home Medications Medication Instructions Recorded Confirmed Last Taken Type No Known Home Medications [No 03/24/13 03/24/13 Unknown History Reported Home Medications] Active Meds: Active Medications Dextrose (D50w (25gm) Syringe) 50 ml IV PRN PRN PRN Reason: Hypoglycemia Enoxaparin Sodium (Lovenox) 40 mg SUB-Q QDAY@1000 MAGAN Acetylcysteine 4,250 mg/ (Dextrose) 521.25 mls @ 130.313 mls/hr IV ONCE ONE Stop: 10/23/18 02:59 Last Admin: 10/23/18 00:08 Dose: 130.313 mls/hr Documented by: Acetylcysteine 8,500 mg/ (Dextrose) 1,042.5 mls @ 65.156 mls/hr IV ONCE ONE Stop: 10/23/18 18:59 Sodium Bicarbonate 50 meq/ (Sodium Chloride) 1,050 mls @ 150 mls/hr IV DIRECT ONE Stop: 10/23/18 05:06 Last Admin: 10/22/18 22:53 Dose: 150 mls/hr Documented by: Potassium Chloride (Kcl 10meq/100ml) 10 meq in 100 mls @ 100 mls/hr IV Q1H MAGAN Stop: 10/23/18 02:59 Sodium Chloride (Nacl 0.9% 1000 Ml) 1,000 mls @ 75 mls/hr IV DIRECT MAGAN Dopamine HCl/Dextrose (Intropin Drip 800 Mg/D5w 250 Ml) 800 mg in 250 mls @ 3.188 mls/hr IV TITR MAGAN; Protocol Sodium Chloride (Nacl 0.9%) 100 mls @ 999 mls/hr IV SHADE PRN PRN Reason: Hypotension Metoclopramide HCl (Reglan) 10 mg IV Q6H PRN PRN Reason: Nausea And Vomiting Last Admin: 10/22/18 22:16 Dose: 10 mg Documented by: Ondansetron HCl (Zofran) 4 mg IV Q4H PRN PRN Reason: Nausea And Vomiting Sodium Chloride (Sodium Chloride Flush Syringe 10 Ml) 10 ml IV BID MAGAN Sodium Chloride (Sodium Chloride Flush Syringe 10 Ml) 10 ml IV PRN PRN PRN Reason: LINE FLUSH Review of Systems ROS unobtainable: due to mental status Exam - Constitutional Vitals: Temp Pulse Resp BP Pulse Ox 97.4 F L 102 H 24 115/63 99 10/22/18 19:54 10/22/18 21:53 10/22/18 21:53 10/22/18 21:53 10/22/18 21:53 General appearance: Present: other (patient writhing around in bed covered in urine and feces) - Respiratory Respiratory effort: normal - Cardiovascular Rhythm: regular - Extremities Extremities: abnormal (left below-knee amputation with well-healed incision, right foot with Coban circumferentially around midfoot, warm to touch) - Abdominal General gastrointestinal: Present: soft, non-distended - Psychiatric Psychiatric: other (follow some commands temporarily) Results - Labs CBC & Chem 7: 10/22/18 20:10 10/22/18 20:10 Labs: Abnormal lab results 10/22/18 10/22/18 10/22/18 Range/Units 19:59 20:10 20:10 WBC 12.7 H (4.5-11.0) K/mm3 MCHC 35 H (32-34) % Monocytes % (Manual) 12.0 H (0.0-7.3) % Seg Neutrophils # Man 7.9 H (1.8-7.7) K/mm3 Monocytes # (Manual) 1.5 H (0.0-0.8) K/mm3 APTT (24.2-36.6) Sec. Potassium 3.4 L (3.6-5.0) mmol/L Carbon Dioxide 21 L (22-30) mmol/L Glucose 137 H (75-100) mg/dL POC Glucose 118 H (70-105) Salicylates (2.8-20.0) mg/dL Acetaminophen (10.0-30.0) ug/mL 10/22/18 10/22/18 10/22/18 Range/Units 20:10 20:10 22:01 WBC (4.5-11.0) K/mm3 MCHC (32-34) % Monocytes % (Manual) (0.0-7.3) % Seg Neutrophils # Man (1.8-7.7) K/mm3 Monocytes # (Manual) (0.0-0.8) K/mm3 APTT (24.2-36.6) Sec. Potassium (3.6-5.0) mmol/L Carbon Dioxide (22-30) mmol/L Glucose (75-100) mg/dL POC Glucose (70-105) Salicylates 34.0 H 40.1 H (2.8-20.0) mg/dL Acetaminophen 146.2 H (10.0-30.0) ug/mL 10/22/18 10/22/18 10/22/18 Range/Units 23:24 23:24 23:24 WBC (4.5-11.0) K/mm3 MCHC (32-34) % Monocytes % (Manual) (0.0-7.3) % Seg Neutrophils # Man (1.8-7.7) K/mm3 Monocytes # (Manual) (0.0-0.8) K/mm3 APTT 23.7 L (24.2-36.6) Sec. Potassium (3.6-5.0) mmol/L Carbon Dioxide (22-30) mmol/L Glucose (75-100) mg/dL POC Glucose (70-105) Salicylates 49.4 H (2.8-20.0) mg/dL Acetaminophen 168.6 H (10.0-30.0) ug/mL Assessment and Plan The patient has acetaminophen toxicity with acute mental status changes. I was asked to place an emergent Vas-Cath for emergent dialysis for management of his acidosis and mental status changes. There was no family available at the time of my evaluation and the the patient was unable to provide consent for the proce dure so myself and Dr. Atkinson signed consent for emergent placement of Vas-Cath. Will place emergent Vas-Cath in the emergency department.
[2018-10-23] MEDS ORDERED: KETALAR ONE (01:12)
--- NOTE | 2018-10-23 01:22 | Operative Report ---
Operative Report Operative Report: Date of Procedure: 10/23/2018 Pre-operative Diagnosis: Acute Acetaminophen Toxicity with Acidosis Post-operative Diagnosis: Same Procedure(s): 1. Ultrasound-Guided Access Right Common Femoral Vein 2. Placement of 30 Cm Trialysis Vas-Cath Right Common Femoral Vein Surgeon: Ramiro Goel M.D. Drug Abuse Worker: None Anesthesia: Local/MAC EBL: Minimal Counts: Correct Complications: None Condition: Stable Findings: All ports easily aspirated and flushed. Specimen: None Indication: The patient is a 58-year-old male with a history of acute acetaminophen toxicity who presented with acute mental status changes and a metabolic acidosis. It is felt that he requires emergent dialysis to help correct his acidosis. I was unable to contact his family so myself and cosigned his consent form to declare the procedure and emergency. Description of Procedure: The procedure was performed at the patient's bedside in the emergency department. The patient had been writhing in the bed and taking his legs making the procedure unsafe to be performed with just local anesthetic. I consulted with the emergency department physician who decided to give the patient Etomidate to prevent the patient from moving while I performed the procedure. Ultrasound was used to identify the right common femoral vein and confirmed patency. After patency was confirmed 2% lidocaine was used to anesthetize the skin and soft tissue overlying the right common femoral vein and an access needle was used with ultrasound guidance to enter the right common femoral vein. A 0.035 J-wire was advanced into the vein and it was serially dilated up to a 14 American dilator. The 30 cm Trialysis Vas-Cath was then placed by Seldinger technique. All ports were then aspirated and flushed with saline and the catheter was secured in place with a 3-0 nylon. The catheter was then dressed with a sterile dressing. The instrument count was correct. The patient tolerated the procedure well was transported to the ICU for emergent dialysis.
[2018-10-23 01:38] LABS: Bilirubin,Direct < 0.2 mg/dL (0-0.2)
[2018-10-23] MEDS: KCL 10MEQ/100ML 10 MEQ/100 ML BAG IV SCH ×4 (02:25→04:44)
[2018-10-23 02:38] LABS: Hepatitis B Surface Antigen Non-Reactive (Negative); Hepatitis C Virus Antibody Non-Reactive (NonReactive)
[2018-10-23] MEDS ORDERED: D5W IV ONE ×2 (02:43→03:00)
[2018-10-23] MEDS ORDERED: ACETADOTE IV ONE ×2 (02:43→03:00)
[2018-10-23] MEDS ORDERED: ATIVAN IV ONE (03:41)
[2018-10-23] MEDS ORDERED: NACL 0.9 (PRIMING MACHINE ONLY DIALYSIS) MC ONE (06:37)
[2018-10-23 07:05] LABS: Alanine Aminotransferase 16 units/L (7-56); Albumin 4.3 g/dL (3.9-5); BUN/Creatinine Ratio 12; Blood Urea Nitrogen 12 mg/dL (9-20); Calcium 8.3 mg/dL (8.4-10.2); Hemolysis Index 5
[2018-10-23 07:09] LABS: Hematocrit 39.3 % (35.5-45.6); Hemoglobin 13.1 gm/dl (11.8-15.2); INR 1.25 (0.87-1.13); Mean Corpuscular HGB Conc 34 % (32-34); Mean Corpuscular Volume 88 fl (84-94); Platelet Count 258 K/mm3 (140-440); Red Blood Count 4.46 M/mm3 (3.65-5.03); Red Cell Distribution Width 14.1 % (13.2-15.2)
[2018-10-23 07:10] LABS: Partial Thromboplastin Time 26.7 Sec. (24.2-36.6)
[2018-10-23 07:13] LABS: Alanine Aminotransferase 18 units/L (7-56); Albumin 4.4 g/dL (3.9-5)
[2018-10-23 07:23] LABS: Bilirubin,Direct < 0.2 mg/dL (0-0.2)
[2018-10-23] MEDS ORDERED: APRESOLINE IV PRN (09:09)
[2018-10-23] MEDS ORDERED: NORMODYNE IV PRN (09:23)
[2018-10-23] MEDS ORDERED: APRESOLINE IV ONE (09:30)
[2018-10-23] MEDS ORDERED: LOPRESSOR PO ONE (09:30)
[2018-10-23] MEDS: LOPRESSOR PO SCH ×2 (10:00→21:47)
[2018-10-23] MEDS ORDERED: ATIVAN PO PRN (10:00)
[2018-10-23] MEDS ORDERED: HALDOL IV PRN (10:00)
[2018-10-23] MEDS ORDERED: LOVENOX SUB-Q SCH ×2 (10:00)
[2018-10-23] MEDS: SODIUM CHLORIDE FLUSH SYRINGE 10 ML IV SCH ×2 (10:00→22:00)
--- NOTE | 2018-10-23 10:02 | Progress Note ---
Assessment and Plan Assessment and plan: The patient is a 58 YO male with history significant for Diabetes mellitus, Dyslipidemia and Depression who presented to [facility] ED with altered mental status. Unable to obtain any history from patient at this time and there was no family member at the bedside. Patient was found confused / altered by his nephew. He is usually conversant and ambulatory. There was 2 empty bottles of Acetaminophen 250 mg and Salicylate (100 pills each) and half empty bottle of Isopropyl alcohol found next to him. Labs were significant for elevated Salicylate and Acetaminophen levels. Poison center recommended hemodialysis due to AMS. Renal function is normal. Nephrology evaluated and patient received urgent hemodialysis. --Possible intentional overdose; 1013 status, suicidal watch Psych evaluation --Acetaminophen overdose; Patient is receiving Acetylcysteine per protocol As recommended by poison control Closely monitor acetaminophen levels and LFTs Continue bicarbonate, IV fluids and supportive care Hemodialysis per nephrology --Salicylate toxicity; with altered level of consciousness Patient received urgent hemodialysis Nephrology following --Suspected isopropyl alcohol ingestion; Nephrology following, hemodialysis as needed --Metabolic encephalopathy; secondary to drug overdose Patient is agitated aggressive, treat underlying cause Supportive care --Hypomagnesemia; replace it with magnesium sulfate IV Monitor levels --Hypophosphatemia; it appears stated K phos Monitor levels --Hyperglycemia/diabetes mellitus; Accu-Chek sliding scale coverage, check A1c --DVT prophylaxis; SCDs No Family available Plan of care reviewed with the patient's nurse Consults and recommendations noted and appreciated The high probability of a clinically significant, sudden or life threatening deterioration of the [multiple] system(s) required my full and direct attention, intervention and personal management. The aggregate critical care time was [40] minutes. This time is in addition to time spent performing reported procedures but includes the following: [x] Data Review and interpretation [x] Patient assessment and monitoring of vital signs [x] Documentation [x] Medication orders and management History Interval history: Patient seen and examined in ICU medical records reviewed Patient was admitted acetaminophen, salicylate, isopropyl alcohol toxicity Patient is receiving acetylcysteine per poison control . Patient is severely agitated in restrains. Acute distress Vital signs reviewed Hospitalist Physical - Constitutional Vitals: Temp Pulse Resp BP Pulse Ox 98.6 F 108 H 27 H 171/132 100 10/23/18 04:50 10/23/18 09:54 10/23/18 09:00 10/23/18 09:54 10/23/18 09:00 General appearance: Present: severe distress, well-nourished, other (agitated and restless) - EENT Eyes: Present: PERRL, EOM intact - Neck Neck: Present: supple, normal ROM - Respiratory Respiratory effort: normal Respiratory: bilateral: diminished, negative: rales, rhonchi, wheezing - Cardiovascular Rhythm: regular Heart Sounds: Present: S1 & S2 - Extremities Extremities: no ischemia, No edema - Abdominal General gastrointestinal: soft, non-tender, non-distended, normal bowel sounds - Integumentary Integumentary: Present: clear, warm - Psychiatric Psychiatric: agitated, other (agressive ) - Neurologic Neurologic: moves all extremities Results - Labs CBC & Chem 7: 10/23/18 06:21 10/23/18 06:21 Labs: Laboratory Last Values WBC 22.8 K/mm3 (4.5-11.0) H 10/23/18 06:21 RBC 4.46 M/mm3 (3.65-5.03) 10/23/18 06:21 Hgb 13.1 gm/dl (11.8-15.2) 10/23/18 06:21 Hct 39.3 % (35.5-45.6) 10/23/18 06:21 MCV 88 fl (84-94) 10/23/18 06:21 MCH 30 pg (28-32) 10/23/18 06:21 MCHC 34 % (32-34) 10/23/18 06:21 RDW 14.1 % (13.2-15.2) 10/23/18 06:21 Plt Count 258 K/mm3 (140-440) 10/23/18 06:21 Lymph # Clin Nurse 10/22/18 20:10 Add Manual Diff Complete 10/22/18 20:10 Total Counted 100 10/22/18 20:10 Seg Neuts % (Manual) 62.0 % (40.0-70.0) 10/22/18 20:10 1.0 % 10/22/18 20:10 24.0 % (13.4-35.0) 10/22/18 20:10 Reactive Lymphs % (Man) 0 % 10/22/18 20:10 12.0 % (0.0-7.3) H 10/22/18 20:10 0 % (0.0-4.3) 10/22/18 20:10 1.0 % (0.0-1.8) 10/22/18 20:10 0 % 10/22/18 20:10 0 % 10/22/18 20:10 0 % 10/22/18 20:10 0 % 10/22/18 20:10 Nucleated RBC % Not Reportable 10/22/18 20:10 Seg Neutrophils # Man 7.9 K/mm3 (1.8-7.7) H 10/22/18 20:10 Band Neutrophils # 0.1 K/mm3 10/22/18 20:10 3.0 K/mm3 (1.2-5.4) 10/22/18 20:10 Abs React Lymphs (Man) 0.0 K/mm3 10/22/18 20:10 1.5 K/mm3 (0.0-0.8) H 10/22/18 20:10 0.0 K/mm3 (0.0-0.4) 10/22/18 20:10 0.1 K/mm3 (0.0-0.1) 10/22/18 20:10 0.0 K/mm3 10/22/18 20:10 0.0 K/mm3 10/22/18 20:10 0.0 K/mm3 10/22/18 20:10 Blast Cells # 0.0 K/mm3 10/22/18 20:10 WBC Morphology Not Reportable 10/22/18 20:10 Hypersegmented Neuts Not Reportable 10/22/18 20:10 Hyposegmented Neuts Not Reportable 10/22/18 20:10 Hypogranular Neuts Not Reportable 10/22/18 20:10 Not Reportable 10/22/18 20:10 Not Reportable 10/22/18 20:10 Not Reportable 10/22/18 20:10 Not Reportable 10/22/18 20:10 Not Reportable 10/22/18 20:10 Not Reportable 10/22/18 20:10 Appears normal 10/22/18 20:10 Not Reportable 10/22/18 20:10 Plt Clumps, EDTA Not Reportable 10/22/18 20:10 Not Reportable 10/22/18 20:10 Not Reportable 10/22/18 20:10 Not Reportable 10/22/18 20:10 Plt Morphology Comment Not Reportable 10/22/18 20:10 RBC Morphology Normal 10/22/18 20:10 Dimorphic RBCs Not Reportable 10/22/18 20:10 Not Reportable 10/22/18 20:10 Not Reportable 10/22/18 20:10 Not Reportable 10/22/18 20:10 Not Reportable 10/22/18 20:10 Not Reportable 10/22/18 20:10 Not Reportable 10/22/18 20:10 Not Reportable 10/22/18 20:10 Not Reportable 10/22/18 20:10 Not Reportable 10/22/18 20:10 Not Reportable 10/22/18 20:10 Not Reportable 10/22/18 20:10 Not Reportable 10/22/18 20:10 Not Reportable 10/22/18 20:10 Not Reportable 10/22/18 20:10 Not Reportable 10/22/18 20:10 Not Reportable 10/22/18 20:10 Not Reportable 10/22/18 20:10 Not Reportable 10/22/18 20:10 Not Reportable 10/22/18 20:10 Acanthocytes (Spur) Not Reportable 10/22/18 20:10 Rouleaux Not Reportable 10/22/18 20:10 Not Reportable 10/22/18 20:10 Not Reportable 10/22/18 20:10 Not Reportable 10/22/18 20:10 Not Reportable 10/22/18 20:10 Hem Pathologist Commnt No 10/22/18 20:10 PT 15.4 Sec. (12.2-14.9) H 10/23/18 06:21 INR 1.25 (0.87-1.13) H 10/23/18 06:21 APTT 26.7 Sec. (24.2-36.6) 10/23/18 06:21 POC ABG pH 7.543 (7.35-7.45) H 10/23/18 01:42 POC ABG pCO2 < 30 (35-45) L 10/23/18 01:42 POC ABG pO2 95 (80-105) 10/23/18 01:42 POC ABG HCO3 18.5 (22-26 mml/L) 10/23/18 01:42 POC ABG Total CO2 19 (23-27mmol/L) 10/23/18 01:42 POC ABG O2 Sat 98 10/23/18 01:42 POC ABG Base Excess -4 ((-2) - (+3)mmol/L) 10/23/18 01:42 3 % 10/23/18 01:42 Sodium 141 mmol/L (137-145) 10/23/18 06:21 Potassium 4.0 mmol/L (3.6-5.0) 10/23/18 06:21 Chloride 98.6 mmol/L (98-107) 10/23/18 06:21 Carbon Dioxide 20 mmol/L (22-30) L 10/23/18 06:21 26 mmol/L 10/23/18 06:21 BUN 12 mg/dL (9-20) 10/23/18 06:21 1.0 mg/dL (0.8-1.5) 10/23/18 06:21 Estimated GFR > 60 ml/min 10/23/18 06:21 12 % 10/23/18 06:21 Glucose 234 mg/dL (75-100) H 10/23/18 06:21 POC Glucose 202 (70-105) H 10/23/18 07:58 312 Mosm/kg 10/23/18 06:21 Lactic Acid 1.90 mmol/L (0.7-2.0) 10/22/18 20:10 Calcium 8.3 mg/dL (8.4-10.2) L D 10/23/18 06:21 Phosphorus 2.20 mg/dL (2.5-4.5) L 10/23/18 06:21 Magnesium 1.50 mg/dL (1.7-2.3) L 10/23/18 06:21 0.40 mg/dL (0.1-1.2) 10/23/18 06:21 0.40 mg/dL (0.1-1.2) 10/23/18 06:21 < 0.2 mg/dL (0-0.2) 10/23/18 06:21 0.2 mg/dL 10/23/18 06:21 AST 32 units/L (5-40) 10/23/18 06:21 AST 32 units/L (5-40) 10/23/18 06:21 ALT 16 units/L (7-56) 10/23/18 06:21 ALT 18 units/L (7-56) 10/23/18 06:21 41 units/L (35-129) 10/23/18 06:21 42 units/L (35-129) 10/23/18 06:21 43.0 umol/L (25-60) 10/22/18 20:10 < 0.010 ng/mL (0.00-0.029) 10/22/18 20:10 7.2 g/dL (6.3-8.2) 10/23/18 06:21 7.2 g/dL (6.3-8.2) 10/23/18 06:21 4.3 g/dL (3.9-5) 10/23/18 06:21 4.4 g/dL (3.9-5) 10/23/18 06:21 1.5 % 10/23/18 06:21 1.6 % 10/23/18 06:21 TSH 1.150 mlU/mL (0.270-4.200) 10/22/18 20:10 Yellow (Yellow) 10/22/18 20:32 Clear (Clear) 10/22/18 20:32 7.0 (5.0-7.0) 10/22/18 20:32 Ur Specific [place] 1.013 (1.003-1.030) 10/22/18 20:32 <15 mg/dl mg/dL (Negative) 10/22/18 20:32 50 mg/dL (Negative) 10/22/18 20:32 Neg mg/dL (Negative) 10/22/18 20:32 Neg (Negative) 10/22/18 20:32 Neg (Negative) 10/22/18 20:32 Neg (Negative) 10/22/18 20:32 < 2.0 mg/dL (<2.0) 10/22/18 20:32 Ur Leukocyte Esterase Neg (Negative) 10/22/18 20:32 < 1.0 /HPF (0.0-6.0) 10/22/18 20:32 2.0 /HPF (0.0-6.0) 10/22/18 20:32 U Epithel Cells (Auto) < 1.0 /HPF (0-13.0) 10/22/18 20:32 Salicylates 29.8 mg/dL (2.8-20.0) H 10/23/18 09:15 Presumptive negative 10/22/18 20:09 Presumptive negative 10/22/18 20:09 Acetaminophen 51.0 ug/mL (10.0-30.0) H 10/23/18 09:15 Ur Barbiturates Screen Presumptive negative 10/22/18 20:09 Ur Phencyclidine Scrn Presumptive negative 10/22/18 20:09 Ur Amphetamines Screen Presumptive negative 10/22/18 20:09 U Benzodiazepines Scrn Presumptive negative 10/22/18 20:09 Presumptive negative 10/22/18 20:09 U Marijuana (THC) Screen Presumptive negative 10/22/18 20:09 Disclamer 10/22/18 20:09 Plasma/Serum Alcohol < 0.01 % (0-0.07) 10/22/18 20:10 Hepatitis A IgM Ab Non-reactive (NonReactive) 10/23/18 01:05 Hep Bs Antigen Non-reactive (Negative) 10/23/18 01:05 Hep B Core IgM Ab Non-reactive (NonReactive) 10/23/18 01:05 Non-reactive (NonReactive) 10/23/18 01:05 Active Medications - Current Medications Current Medications: Generic Name Dose Route Start Last Admin Trade Name Freq PRN Reason Stop Dose Admin Dextrose 50 ml 10/22/18 23:28 D50w (25gm) Syringe IV PRN PRN Hypoglycemia Enoxaparin Sodium 40 mg 10/23/18 10:00 Lovenox SUB-Q QDAY@1000 MAGAN Haloperidol Lactate 5 mg 10/23/18 10:00 Haldol IV Q6H PRN Agitation Hydralazine HCl 25 mg 10/23/18 14:00 Apresoline PO Q8HR MAGAN Hydralazine HCl 10 mg 10/23/18 09:09 Apresoline IV Q4HR PRN Hypertension Acetylcysteine 8,500 mg/ 1,042.5 mls @ 65.156 mls/hr 10/23/18 03:00 10/23/18 03:40 Dextrose IV 10/23/18 18:59 65.156 mls/hr ONCE ONE Administration Sodium Chloride 1,000 mls @ 75 mls/hr 10/23/18 01:00 Nacl 0.9% 1000 Ml IV DIRECT MAGAN Sodium Chloride 100 mls @ 999 mls/hr 10/23/18 00:19 Nacl 0.9% IV SHADE PRN Hypotension Labetalol HCl 20 mg 10/23/18 09:23 10/23/18 09:54 Normodyne IV 20 mg Q6HR PRN Administration Hypertension Lorazepam 0.5 mg 10/23/18 10:00 Ativan PO Q4H PRN Agitation Metoclopramide HCl 10 mg 10/22/18 22:08 10/22/18 22:16 Reglan IV 10 mg Q6H PRN Administration Nausea And Vomiting Metoprolol Tartrate 12.5 mg 10/23/18 10:00 Lopressor PO BID MAGAN Ondansetron HCl 4 mg 10/22/18 23:10 Zofran IV Q4H PRN Nausea And Vomiting Sodium Chloride 10 ml 10/23/18 10:00 Sodium Chloride Flush Syringe 10 Ml IV BID MAGAN Sodium Chloride 10 ml 10/22/18 23:10 Sodium Chloride Flush Syringe 10 Ml IV PRN PRN LINE FLUSH
[2018-10-23 10:03] LABS: Band Neutrophils # (Manual) 0.2 K/mm3; Basophils % (Manual) 0 % (0.0-1.8); Eosinophils % (Manual) 0 % (0.0-4.3); Total Cells Counted 100
[2018-10-23 10:04] LABS: Platelet Estimate Consistent w Auto; RBC Morphology Normal
[2018-10-23] MEDS: ATIVAN IV PRN ×2 (10:43→14:50)
--- NOTE | 2018-10-23 10:49 | Consultation ---
History of Present Illness - Reason for Consult Consult date: 10/23/18 Altered Mental State, Toxic Overdose Requesting physician: KALIN CAT - History of Present Illness 58 y/o male with known Diabetes, left BKA admitted with aspirin and tylenol overdose. Patient is awake and alert. Does know where he is and the month. Could not tell the year. Had emergent HD last night and second round planned for later today. ED spoke with poison control as well. No family currently at bedside. Past History Past Medical History: diabetes, hyperlipidemia, other (depression) Medications and Allergies Allergies Allergy/AdvReac Type Severity Reaction Status Date / Time No Known Allergies Allergy Verified 03/24/13 05:37 Home Medications Medication Instructions Recorded Confirmed Last Taken Type No Known Home Medications [No 03/24/13 03/24/13 Unknown History Reported Home Medications] Active Meds: Active Medications Dextrose (D50w (25gm) Syringe) 50 ml IV PRN PRN PRN Reason: Hypoglycemia Famotidine (Pepcid) 20 mg IV BID MAGAN Haloperidol Lactate (Haldol) 5 mg IV Q6H PRN PRN Reason: Agitation Hydralazine HCl (Apresoline) 25 mg PO Q8HR MAGAN Hydralazine HCl (Apresoline) 10 mg IV Q4HR PRN PRN Reason: Hypertension Acetylcysteine 8,500 mg/ (Dextrose) 1,042.5 mls @ 65.156 mls/hr IV ONCE ONE Stop: 10/23/18 18:59 Last Admin: 10/23/18 03:40 Dose: 65.156 mls/hr Documented by: Sodium Chloride (Nacl 0.9% 1000 Ml) 1,000 mls @ 75 mls/hr IV DIRECT MAGAN Sodium Chloride (Nacl 0.9%) 100 mls @ 999 mls/hr IV SHADE PRN PRN Reason: Hypotension Magnesium Sulfate (Magnesium Sulfate 2gm/50ml) 2 gm in 50 mls @ 25 mls/hr IV ONCE ONE Stop: 10/23/18 12:59 Potassium Phosphate 30 mmol/ (Sodium Chloride) 510 mls @ 83 mls/hr IV ONCE ONE Stop: 10/23/18 17:08 Insulin Human Lispro (Humalog) 0 unit SUB-Q Q4HR MAGAN; Protocol Labetalol HCl (Normodyne) 20 mg IV Q6HR PRN PRN Reason: Hypertension Last Admin: 10/23/18 09:54 Dose: 20 mg Documented by: Lorazepam (Ativan) 0.5 mg PO Q4H PRN PRN Reason: Agitation Lorazepam (Ativan) 2 mg IV Q4H PRN PRN Reason: Agitation Metoclopramide HCl (Reglan) 10 mg IV Q6H PRN PRN Reason: Nausea And Vomiting Last Admin: 10/22/18 22:16 Dose: 10 mg Documented by: Metoprolol Tartrate (Lopressor) 12.5 mg PO BID MAGAN Ondansetron HCl (Zofran) 4 mg IV Q4H PRN PRN Reason: Nausea And Vomiting Sodium Chloride (Sodium Chloride Flush Syringe 10 Ml) 10 ml IV BID MAGAN Sodium Chloride (Sodium Chloride Flush Syringe 10 Ml) 10 ml IV PRN PRN PRN Reason: LINE FLUSH Review of Systems ROS unobtainable: due to mental status Exam - Constitutional Vitals: Temp Pulse Resp BP Pulse Ox 99.1 F 102 H 33 H 132/66 99 10/23/18 08:00 10/23/18 10:30 10/23/18 10:30 10/23/18 10:30 10/23/18 10:30 General appearance: Present: obese, disheveled - EENT Eyes: Present: EOM intact ENT: hearing intact, clear oral mucosa - Neck Neck: Present: supple, normal ROM - Respiratory Respiratory effort: labored Respiratory: bilateral: CTA - Cardiovascular Rhythm: regular Heart Sounds: Present: S1 & S2 - Extremities Extremities: abnormal (multiple skin tears and brusises. Left BKA) - Abdominal General gastrointestinal: Present: soft Male genitourinary: Present: deferred - Rectal Rectal Exam: deferred - Musculoskeletal Musculoskeletal: strength equal bilaterally - Psychiatric Psychiatric: agitated Results - Labs CBC & Chem 7: 10/23/18 06:21 10/23/18 06:21 Labs: Abnormal lab results 10/22/18 10/22/18 10/22/18 Range/Units 19:59 20:10 20:10 WBC 12.7 H (4.5-11.0) K/mm3 MCHC 35 H (32-34) % Seg Neuts % (Manual) (40.0-70.0) % Lymphocytes % (Manual) (13.4-35.0) % Monocytes % (Manual) 12.0 H (0.0-7.3) % Seg Neutrophils # Man 7.9 H (1.8-7.7) K/mm3 Lymphocytes # (Manual) (1.2-5.4) K/mm3 Monocytes # (Manual) 1.5 H (0.0-0.8) K/mm3 PT (12.2-14.9) Sec. INR (0.87-1.13) APTT (24.2-36.6) Sec. POC ABG pH (7.35-7.45) POC ABG pCO2 (35-45) Potassium 3.4 L (3.6-5.0) mmol/L Carbon Dioxide 21 L (22-30) mmol/L Glucose 137 H (75-100) mg/dL POC Glucose 118 H (70-105) Calcium (8.4-10.2) mg/dL Phosphorus (2.5-4.5) mg/dL Magnesium (1.7-2.3) mg/dL Salicylates (2.8-20.0) mg/dL Acetaminophen (10.0-30.0) ug/mL 10/22/18 10/22/18 10/22/18 Range/Units 20:10 20:10 22:01 WBC (4.5-11.0) K/mm3 MCHC (32-34) % Seg Neuts % (Manual) (40.0-70.0) % Lymphocytes % (Manual) (13.4-35.0) % Monocytes % (Manual) (0.0-7.3) % Seg Neutrophils # Man (1.8-7.7) K/mm3 Lymphocytes # (Manual) (1.2-5.4) K/mm3 Monocytes # (Manual) (0.0-0.8) K/mm3 PT (12.2-14.9) Sec. INR (0.87-1.13) APTT (24.2-36.6) Sec. POC ABG pH (7.35-7.45) POC ABG pCO2 (35-45) Potassium (3.6-5.0) mmol/L Carbon Dioxide (22-30) mmol/L Glucose (75-100) mg/dL POC Glucose (70-105) Calcium (8.4-10.2) mg/dL Phosphorus (2.5-4.5) mg/dL Magnesium (1.7-2.3) mg/dL Salicylates 34.0 H 40.1 H (2.8-20.0) mg/dL Acetaminophen 146.2 H (10.0-30.0) ug/mL 10/22/18 10/22/18 10/22/18 Range/Units 23:24 23:24 23:24 WBC (4.5-11.0) K/mm3 MCHC (32-34) % Seg Neuts % (Manual) (40.0-70.0) % Lymphocytes % (Manual) (13.4-35.0) % Monocytes % (Manual) (0.0-7.3) % Seg Neutrophils # Man (1.8-7.7) K/mm3 Lymphocytes # (Manual) (1.2-5.4) K/mm3 Monocytes # (Manual) (0.0-0.8) K/mm3 PT (12.2-14.9) Sec. INR (0.87-1.13) APTT 23.7 L (24.2-36.6) Sec. POC ABG pH (7.35-7.45) POC ABG pCO2 (35-45) Potassium (3.6-5.0) mmol/L Carbon Dioxide (22-30) mmol/L Glucose (75-100) mg/dL POC Glucose (70-105) Calcium (8.4-10.2) mg/dL Phosphorus (2.5-4.5) mg/dL Magnesium (1.7-2.3) mg/dL Salicylates 49.4 H (2.8-20.0) mg/dL Acetaminophen 168.6 H (10.0-30.0) ug/mL 10/23/18 10/23/18 10/23/18 Range/Units 01:05 01:05 01:42 WBC (4.5-11.0) K/mm3 MCHC (32-34) % Seg Neuts % (Manual) (40.0-70.0) % Lymphocytes % (Manual) (13.4-35.0) % Monocytes % (Manual) (0.0-7.3) % Seg Neutrophils # Man (1.8-7.7) K/mm3 Lymphocytes # (Manual) (1.2-5.4) K/mm3 Monocytes # (Manual) (0.0-0.8) K/mm3 PT (12.2-14.9) Sec. INR (0.87-1.13) APTT (24.2-36.6) Sec. POC ABG pH 7.543 H (7.35-7.45) POC ABG pCO2 < 30 L (35-45) Potassium (3.6-5.0) mmol/L Carbon Dioxide (22-30) mmol/L Glucose (75-100) mg/dL POC Glucose (70-105) Calcium (8.4-10.2) mg/dL Phosphorus (2.5-4.5) mg/dL Magnesium (1.7-2.3) mg/dL Salicylates 49.1 H (2.8-20.0) mg/dL Acetaminophen 151.1 H (10.0-30.0) ug/mL 10/23/18 10/23/18 10/23/18 Range/Units 02:06 06:21 06:21 WBC 22.8 H (4.5-11.0) K/mm3 MCHC (32-34) % Seg Neuts % (Manual) 91.0 H (40.0-70.0) % Lymphocytes % (Manual) 5.0 L (13.4-35.0) % Monocytes % (Manual) (0.0-7.3) % Seg Neutrophils # Man 20.7 H (1.8-7.7) K/mm3 Lymphocytes # (Manual) 1.1 L (1.2-5.4) K/mm3 Monocytes # (Manual) (0.0-0.8) K/mm3 PT (12.2-14.9) Sec. INR (0.87-1.13) APTT (24.2-36.6) Sec. POC ABG pH (7.35-7.45) POC ABG pCO2 (35-45) Potassium (3.6-5.0) mmol/L Carbon Dioxide 20 L (22-30) mmol/L Glucose 234 H (75-100) mg/dL POC Glucose 296 H (70-105) Calcium 8.3 L D (8.4-10.2) mg/dL Phosphorus (2.5-4.5) mg/dL Magnesium (1.7-2.3) mg/dL Salicylates (2.8-20.0) mg/dL Acetaminophen (10.0-30.0) ug/mL 10/23/18 10/23/18 10/23/18 Range/Units 06:21 06:21 06:21 WBC (4.5-11.0) K/mm3 MCHC (32-34) % Seg Neuts % (Manual) (40.0-70.0) % Lymphocytes % (Manual) (13.4-35.0) % Monocytes % (Manual) (0.0-7.3) % Seg Neutrophils # Man (1.8-7.7) K/mm3 Lymphocytes # (Manual) (1.2-5.4) K/mm3 Monocytes # (Manual) (0.0-0.8) K/mm3 PT 15.4 H (12.2-14.9) Sec. INR 1.25 H (0.87-1.13) APTT (24.2-36.6) Sec. POC ABG pH (7.35-7.45) POC ABG pCO2 (35-45) Potassium (3.6-5.0) mmol/L Carbon Dioxide (22-30) mmol/L Glucose (75-100) mg/dL POC Glucose (70-105) Calcium (8.4-10.2) mg/dL Phosphorus (2.5-4.5) mg/dL Magnesium (1.7-2.3) mg/dL Salicylates 32.2 H (2.8-20.0) mg/dL Acetaminophen 65.3 H (10.0-30.0) ug/mL 10/23/18 10/23/18 10/23/18 Range/Units 06:21 07:58 09:15 WBC (4.5-11.0) K/mm3 MCHC (32-34) % Seg Neuts % (Manual) (40.0-70.0) % Lymphocytes % (Manual) (13.4-35.0) % Monocytes % (Manual) (0.0-7.3) % Seg Neutrophils # Man (1.8-7.7) K/mm3 Lymphocytes # (Manual) (1.2-5.4) K/mm3 Monocytes # (Manual) (0.0-0.8) K/mm3 PT (12.2-14.9) Sec. INR (0.87-1.13) APTT (24.2-36.6) Sec. POC ABG pH (7.35-7.45) POC ABG pCO2 (35-45) Potassium (3.6-5.0) mmol/L Carbon Dioxide (22-30) mmol/L Glucose (75-100) mg/dL POC Glucose 202 H (70-105) Calcium (8.4-10.2) mg/dL Phosphorus 2.20 L (2.5-4.5) mg/dL Magnesium 1.50 L (1.7-2.3) mg/dL Salicylates (2.8-20.0) mg/dL Acetaminophen 51.0 H (10.0-30.0) ug/mL 10/23/18 Range/Units 09:15 WBC (4.5-11.0) K/mm3 MCHC (32-34) % Seg Neuts % (Manual) (40.0-70.0) % Lymphocytes % (Manual) (13.4-35.0) % Monocytes % (Manual) (0.0-7.3) % Seg Neutrophils # Man (1.8-7.7) K/mm3 Lymphocytes # (Manual) (1.2-5.4) K/mm3 Monocytes # (Manual) (0.0-0.8) K/mm3 PT (12.2-14.9) Sec. INR (0.87-1.13) APTT (24.2-36.6) Sec. POC ABG pH (7.35-7.45) POC ABG pCO2 (35-45) Potassium (3.6-5.0) mmol/L Carbon Dioxide (22-30) mmol/L Glucose (75-100) mg/dL POC Glucose (70-105) Calcium (8.4-10.2) mg/dL Phosphorus (2.5-4.5) mg/dL Magnesium (1.7-2.3) mg/dL Salicylates 29.8 H (2.8-20.0) mg/dL Acetaminophen (10.0-30.0) ug/mL - Imaging and Cardiology Chest x-ray: image reviewed (clear) Assessment and Plan 58 y/o male with possible intentional overdose on salicylates and tylenol. 1. spoke with renal and will do HD again later today 2. Ativan and Haldol for agitation. 3. Added PRN labetol for BP and HR 4. Will change accuchecks to q4 hours 5. D/C Lovenox 6. Finish NAC 7. CONtinue to measure level of salicylates and acetaminophen until normal CCT 31 minutes.
[2018-10-23] MEDS ORDERED: MAGNESIUM SULFATE 2GM/50ML 2 GM/50 ML BAG IV ONE (11:00)
[2018-10-23] MEDS ORDERED: KPHOS 30 MMOL in NACL 0.9% 500 ML 500 ML IV ONE (11:00)
[2018-10-23 12:16] LABS: INR 1.36 (0.87-1.13)
[2018-10-23 12:17] LABS: Partial Thromboplastin Time 27.8 Sec. (24.2-36.6)
[2018-10-23 12:30] LABS: Alanine Aminotransferase 20 units/L (7-56); Albumin 4.3 g/dL (3.9-5)
[2018-10-23 12:35] LABS: Bilirubin,Direct < 0.2 mg/dL (0-0.2)
--- NOTE | 2018-10-23 12:43 | Progress Note ---
Assessment and Plan 1. Salicylate toxicity: Patient presented with elevated salicylate level and associated AMS. Continue IV fluids. Recommended treatment is urgent hemodialysis. He underwent hemodialysis early this AM. Will do later today. 2. FEN: Anion gap MA, improving with HD. Continue bicarbonate drip. Monitor lytes. 3. Acetaminophen OD: Acetylcyteine. 4. Suspected Isopropyl alcohol ingestion: Isopropyl alcohol level ordered. Osmolar gap is about 13. Urgent HD. 5. AMS: 6. Hypertension: BP controlled. 7. DM. 8. Depression. Overall prognosis is guarded. D/w his sister at the bedside. Subjective Date of service: 10/23/18 Interval history: Patient was seen and examined at the bedside. Objective - Vital Signs Vital signs: Vital Signs - 12hr 10/23/18 10/23/18 10/23/18 00:45 00:50 00:55 Temperature Pulse Rate 114 H Pulse Rate [ From Monitor] Pulse Rate [ 99 H 114 H Intra-Procedure ] Pulse Rate [ Post-Procedure] Pulse Rate [Pre 109 H -Procedure] Respiratory 17 Rate Respiratory 23 17 Rate [Intra- Procedure] Respiratory Rate [Post- Procedure] Respiratory 13 Rate [Pre- Procedure] Blood Pressure Blood Pressure 94/59 93/63 [Intra- Procedure] Blood Pressure [Post-Procedure ] Blood Pressure 105/45 [Pre-Procedure] Blood Pressure 93/63 [Right] O2 Sat by Pulse 98 Oximetry O2 Sat by Pulse Oximetry [ Bilateral Throughout] O2 Sat by Pulse 98 98 Oximetry [ Intra-Procedure ] O2 Sat by Pulse Oximetry [Post -Procedure] O2 Sat by Pulse 98 Oximetry [Pre- Procedure] 10/23/18 10/23/18 10/23/18 00:59 01:00 01:05 Temperature Pulse Rate 102 H Pulse Rate [ From Monitor] Pulse Rate [ 98 H 92 H Intra-Procedure ] Pulse Rate [ Post-Procedure] Pulse Rate [Pre -Procedure] Respiratory 16 Rate Respiratory 17 18 Rate [Intra- Procedure] Respiratory Rate [Post- Procedure] Respiratory Rate [Pre- Procedure] Blood Pressure Blood Pressure 69/40 73/40 [Intra- Procedure] Blood Pressure [Post-Procedure ] Blood Pressure [Pre-Procedure] Blood Pressure [Right] O2 Sat by Pulse Oximetry O2 Sat by Pulse Oximetry [ Bilateral Throughout] O2 Sat by Pulse 98 99 Oximetry [ Intra-Procedure ] O2 Sat by Pulse Oximetry [Post -Procedure] O2 Sat by Pulse Oximetry [Pre- Procedure] 10/23/18 10/23/18 10/23/18 01:06 01:20 01:30 Temperature Pulse Rate 94 H Pulse Rate [ From Monitor] Pulse Rate [ Intra-Procedure ] Pulse Rate [ 94 H 94 H Post-Procedure] Pulse Rate [Pre -Procedure] Respiratory 19 Rate Respiratory Rate [Intra- Procedure] Respiratory 15 19 Rate [Post- Procedure] Respiratory Rate [Pre- Procedure] Blood Pressure 120/94 Blood Pressure [Intra- Procedure] Blood Pressure 76/42 110/88 [Post-Procedure ] Blood Pressure [Pre-Procedure] Blood Pressure [Right] O2 Sat by Pulse 100 Oximetry O2 Sat by Pulse Oximetry [ Bilateral Throughout] O2 Sat by Pulse Oximetry [ Intra-Procedure ] O2 Sat by Pulse 99 98 Oximetry [Post -Procedure] O2 Sat by Pulse Oximetry [Pre- Procedure] 10/23/18 10/23/18 10/23/18 01:40 01:42 01:45 Temperature 98.6 F 98.9 F Pulse Rate 99 H Pulse Rate [ From Monitor] Pulse Rate [ Intra-Procedure ] Pulse Rate [ Post-Procedure] Pulse Rate [Pre -Procedure] Respiratory 18 Rate Respiratory Rate [Intra- Procedure] Respiratory Rate [Post- Procedure] Respiratory Rate [Pre- Procedure] Blood Pressure 120/94 Blood Pressure [Intra- Procedure] Blood Pressure [Post-Procedure ] Blood Pressure [Pre-Procedure] Blood Pressure [Right] O2 Sat by Pulse 3 L Oximetry O2 Sat by Pulse Oximetry [ Bilateral Throughout] O2 Sat by Pulse Oximetry [ Intra-Procedure ] O2 Sat by Pulse Oximetry [Post -Procedure] O2 Sat by Pulse Oximetry [Pre- Procedure] 10/23/18 10/23/18 10/23/18 01:46 02:00 02:05 Temperature Pulse Rate 100 H 101 H 100 H Pulse Rate [ From Monitor] Pulse Rate [ Intra-Procedure ] Pulse Rate [ Post-Procedure] Pulse Rate [Pre -Procedure] Respiratory 23 20 Rate Respiratory Rate [Intra- Procedure] Respiratory Rate [Post- Procedure] Respiratory Rate [Pre- Procedure] Blood Pressure 120/94 77/43 89/38 Blood Pressure [Intra- Procedure] Blood Pressure [Post-Procedure ] Blood Pressure [Pre-Procedure] Blood Pressure [Right] O2 Sat by Pulse 100 99 Oximetry O2 Sat by Pulse Oximetry [ Bilateral Throughout] O2 Sat by Pulse Oximetry [ Intra-Procedure ] O2 Sat by Pulse Oximetry [Post -Procedure] O2 Sat by Pulse Oximetry [Pre- Procedure] 10/23/18 10/23/18 10/23/18 02:07 02:15 02:30 Temperature 98.6 F Pulse Rate 106 H 108 H Pulse Rate [ From Monitor] Pulse Rate [ Intra-Procedure ] Pulse Rate [ Post-Procedure] Pulse Rate [Pre -Procedure] Respiratory 22 Rate Respiratory Rate [Intra- Procedure] Respiratory Rate [Post- Procedure] Respiratory Rate [Pre- Procedure] Blood Pressure 99/53 106/61 Blood Pressure [Intra- Procedure] Blood Pressure [Post-Procedure ] Blood Pressure [Pre-Procedure] Blood Pressure [Right] O2 Sat by Pulse 99 Oximetry O2 Sat by Pulse Oximetry [ Bilateral Throughout] O2 Sat by Pulse Oximetry [ Intra-Procedure ] O2 Sat by Pulse Oximetry [Post -Procedure] O2 Sat by Pulse Oximetry [Pre- Procedure] 10/23/18 10/23/18 10/23/18 02:45 02:46 02:58 Temperature Pulse Rate 105 H 108 H Pulse Rate [ From Monitor] Pulse Rate [ Intra-Procedure ] Pulse Rate [ Post-Procedure] Pulse Rate [Pre -Procedure] Respiratory 15 Rate Respiratory Rate [Intra- Procedure] Respiratory Rate [Post- Procedure] Respiratory Rate [Pre- Procedure] Blood Pressure 112/61 106/61 Blood Pressure [Intra- Procedure] Blood Pressure [Post-Procedure ] Blood Pressure [Pre-Procedure] Blood Pressure [Right] O2 Sat by Pulse 100 100 Oximetry O2 Sat by Pulse Oximetry [ Bilateral Throughout] O2 Sat by Pulse Oximetry [ Intra-Procedure ] O2 Sat by Pulse Oximetry [Post -Procedure] O2 Sat by Pulse Oximetry [Pre- Procedure] 10/23/18 10/23/18 10/23/18 03:00 03:15 03:22 Temperature Pulse Rate 108 H 107 H 102 H Pulse Rate [ From Monitor] Pulse Rate [ Intra-Procedure ] Pulse Rate [ Post-Procedure] Pulse Rate [Pre -Procedure] Respiratory 24 22 Rate Respiratory Rate [Intra- Procedure] Respiratory Rate [Post- Procedure] Respiratory Rate [Pre- Procedure] Blood Pressure 125/90 112/35 Blood Pressure [Intra- Procedure] Blood Pressure [Post-Procedure ] Blood Pressure [Pre-Procedure] Blood Pressure [Right] O2 Sat by Pulse 100 100 Oximetry O2 Sat by Pulse Oximetry [ Bilateral Throughout] O2 Sat by Pulse Oximetry [ Intra-Procedure ] O2 Sat by Pulse Oximetry [Post -Procedure] O2 Sat by Pulse Oximetry [Pre- Procedure] 10/23/18 10/23/18 10/23/18 03:30 03:45 04:00 Temperature 98.6 F Pulse Rate 110 H 110 H 112 H Pulse Rate [ From Monitor] Pulse Rate [ Intra-Procedure ] Pulse Rate [ Post-Procedure] Pulse Rate [Pre -Procedure] Respiratory 17 19 19 Rate Respiratory Rate [Intra- Procedure] Respiratory Rate [Post- Procedure] Respiratory Rate [Pre- Procedure] Blood Pressure 109/52 109/54 121/49 Blood Pressure [Intra- Procedure] Blood Pressure [Post-Procedure ] Blood Pressure [Pre-Procedure] Blood Pressure [Right] O2 Sat by Pulse 100 100 Oximetry O2 Sat by Pulse Oximetry [ Bilateral Throughout] O2 Sat by Pulse Oximetry [ Intra-Procedure ] O2 Sat by Pulse Oximetry [Post -Procedure] O2 Sat by Pulse Oximetry [Pre- Procedure] 10/23/18 10/23/18 10/23/18 04:15 04:16 04:30 Temperature Pulse Rate 110 H 114 H 110 H Pulse Rate [ From Monitor] Pulse Rate [ Intra-Procedure ] Pulse Rate [ Post-Procedure] Pulse Rate [Pre -Procedure] Respiratory 29 H 17 Rate Respiratory Rate [Intra- Procedure] Respiratory Rate [Post- Procedure] Respiratory Rate [Pre- Procedure] Blood Pressure 120/54 85/52 109/54 Blood Pressure [Intra- Procedure] Blood Pressure [Post-Procedure ] Blood Pressure [Pre-Procedure] Blood Pressure [Right] O2 Sat by Pulse 100 100 Oximetry O2 Sat by Pulse Oximetry [ Bilateral Throughout] O2 Sat by Pulse Oximetry [ Intra-Procedure ] O2 Sat by Pulse Oximetry [Post -Procedure] O2 Sat by Pulse Oximetry [Pre- Procedure] 10/23/18 10/23/18 10/23/18 04:40 04:46 04:50 Temperature 98.6 F Pulse Rate 102 H 111 H 118 H Pulse Rate [ From Monitor] Pulse Rate [ Intra-Procedure ] Pulse Rate [ Post-Procedure] Pulse Rate [Pre -Procedure] Respiratory 28 H 18 Rate Respiratory Rate [Intra- Procedure] Respiratory Rate [Post- Procedure] Respiratory Rate [Pre- Procedure] Blood Pressure 124/56 122/66 159/105 Blood Pressure [Intra- Procedure] Blood Pressure [Post-Procedure ] Blood Pressure [Pre-Procedure] Blood Pressure [Right] O2 Sat by Pulse 100 Oximetry O2 Sat by Pulse 100 Oximetry [ Bilateral Throughout] O2 Sat by Pulse Oximetry [ Intra-Procedure ] O2 Sat by Pulse Oximetry [Post -Procedure] O2 Sat by Pulse Oximetry [Pre- Procedure] 10/23/18 10/23/18 10/23/18 05:00 05:16 05:30 Temperature Pulse Rate 127 H 114 H 127 H Pulse Rate [ From Monitor] Pulse Rate [ Intra-Procedure ] Pulse Rate [ Post-Procedure] Pulse Rate [Pre -Procedure] Respiratory 27 H 22 29 H Rate Respiratory Rate [Intra- Procedure] Respiratory Rate [Post- Procedure] Respiratory Rate [Pre- Procedure] Blood Pressure 122/66 126/74 126/74 Blood Pressure [Intra- Procedure] Blood Pressure [Post-Procedure ] Blood Pressure [Pre-Procedure] Blood Pressure [Right] O2 Sat by Pulse 100 100 100 Oximetry O2 Sat by Pulse Oximetry [ Bilateral Throughout] O2 Sat by Pulse Oximetry [ Intra-Procedure ] O2 Sat by Pulse Oximetry [Post -Procedure] O2 Sat by Pulse Oximetry [Pre- Procedure] 10/23/18 10/23/18 10/23/18 05:46 06:00 06:16 Temperature Pulse Rate 106 H 119 H 117 H Pulse Rate [ From Monitor] Pulse Rate [ Intra-Procedure ] Pulse Rate [ Post-Procedure] Pulse Rate [Pre -Procedure] Respiratory 16 28 H 28 H Rate Respiratory Rate [Intra- Procedure] Respiratory Rate [Post- Procedure] Respiratory Rate [Pre- Procedure] Blood Pressure 128/56 126/74 126/74 Blood Pressure [Intra- Procedure] Blood Pressure [Post-Procedure ] Blood Pressure [Pre-Procedure] Blood Pressure [Right] O2 Sat by Pulse 100 100 99 Oximetry O2 Sat by Pulse Oximetry [ Bilateral Throughout] O2 Sat by Pulse Oximetry [ Intra-Procedure ] O2 Sat by Pulse Oximetry [Post -Procedure] O2 Sat by Pulse Oximetry [Pre- Procedure] 10/23/18 10/23/18 10/23/18 06:30 06:46 07:00 Temperature Pulse Rate 102 H 119 H 126 H Pulse Rate [ From Monitor] Pulse Rate [ Intra-Procedure ] Pulse Rate [ Post-Procedure] Pulse Rate [Pre -Procedure] Respiratory 20 25 H 31 H Rate Respiratory Rate [Intra- Procedure] Respiratory Rate [Post- Procedure] Respiratory Rate [Pre- Procedure] Blood Pressure 144/60 144/60 157/106 Blood Pressure [Intra- Procedure] Blood Pressure [Post-Procedure ] Blood Pressure [Pre-Procedure] Blood Pressure [Right] O2 Sat by Pulse 99 99 97 Oximetry O2 Sat by Pulse Oximetry [ Bilateral Throughout] O2 Sat by Pulse Oximetry [ Intra-Procedure ] O2 Sat by Pulse Oximetry [Post -Procedure] O2 Sat by Pulse Oximetry [Pre- Procedure] 10/23/18 10/23/18 10/23/18 07:16 07:30 07:46 Temperature Pulse Rate 116 H 116 H 118 H Pulse Rate [ From Monitor] Pulse Rate [ Intra-Procedure ] Pulse Rate [ Post-Procedure] Pulse Rate [Pre -Procedure] Respiratory 25 H 28 H 30 H Rate Respiratory Rate [Intra- Procedure] Respiratory Rate [Post- Procedure] Respiratory Rate [Pre- Procedure] Blood Pressure 129/35 129/35 129/35 Blood Pressure [Intra- Procedure] Blood Pressure [Post-Procedure ] Blood Pressure [Pre-Procedure] Blood Pressure [Right] O2 Sat by Pulse 97 99 99 Oximetry O2 Sat by Pulse Oximetry [ Bilateral Throughout] O2 Sat by Pulse Oximetry [ Intra-Procedure ] O2 Sat by Pulse Oximetry [Post -Procedure] O2 Sat by Pulse Oximetry [Pre- Procedure] 10/23/18 10/23/18 10/23/18 08:00 08:16 08:30 Temperature 99.1 F Pulse Rate 124 H 126 H 107 H Pulse Rate [ 121 H From Monitor] Pulse Rate [ Intra-Procedure ] Pulse Rate [ Post-Procedure] Pulse Rate [Pre -Procedure] Respiratory 32 H 27 H 18 Rate Respiratory Rate [Intra- Procedure] Respiratory Rate [Post- Procedure] Respiratory Rate [Pre- Procedure] Blood Pressure 146/115 146/115 146/115 Blood Pressure [Intra- Procedure] Blood Pressure [Post-Procedure ] Blood Pressure [Pre-Procedure] Blood Pressure [Right] O2 Sat by Pulse 100 99 95 Oximetry O2 Sat by Pulse Oximetry [ Bilateral Throughout] O2 Sat by Pulse Oximetry [ Intra-Procedure ] O2 Sat by Pulse Oximetry [Post -Procedure] O2 Sat by Pulse Oximetry [Pre- Procedure] 10/23/18 10/23/18 10/23/18 08:46 08:57 09:00 Temperature Pulse Rate 121 H 121 H Pulse Rate [ From Monitor] Pulse Rate [ Intra-Procedure ] Pulse Rate [ Post-Procedure] Pulse Rate [Pre -Procedure] Respiratory 28 H 27 H Rate Respiratory Rate [Intra- Procedure] Respiratory Rate [Post- Procedure] Respiratory Rate [Pre- Procedure] Blood Pressure 146/115 171/132 Blood Pressure [Intra- Procedure] Blood Pressure [Post-Procedure ] Blood Pressure [Pre-Procedure] Blood Pressure [Right] O2 Sat by Pulse 99 99 100 Oximetry O2 Sat by Pulse Oximetry [ Bilateral Throughout] O2 Sat by Pulse Oximetry [ Intra-Procedure ] O2 Sat by Pulse Oximetry [Post -Procedure] O2 Sat by Pulse Oximetry [Pre- Procedure] 10/23/18 10/23/18 10/23/18 09:16 09:30 09:46 Temperature Pulse Rate 114 H 118 H 120 H Pulse Rate [ From Monitor] Pulse Rate [ Intra-Procedure ] Pulse Rate [ Post-Procedure] Pulse Rate [Pre -Procedure] Respiratory 27 H 30 H 30 H Rate Respiratory Rate [Intra- Procedure] Respiratory Rate [Post- Procedure] Respiratory Rate [Pre- Procedure] Blood Pressure 171/132 157/84 157/84 Blood Pressure [Intra- Procedure] Blood Pressure [Post-Procedure ] Blood Pressure [Pre-Procedure] Blood Pressure [Right] O2 Sat by Pulse 100 99 99 Oximetry O2 Sat by Pulse Oximetry [ Bilateral Throughout] O2 Sat by Pulse Oximetry [ Intra-Procedure ] O2 Sat by Pulse Oximetry [Post -Procedure] O2 Sat by Pulse Oximetry [Pre- Procedure] 10/23/18 10/23/18 10/23/18 09:54 10:00 10:16 Temperature Pulse Rate 108 H 111 H 95 H Pulse Rate [ From Monitor] Pulse Rate [ Intra-Procedure ] Pulse Rate [ Post-Procedure] Pulse Rate [Pre -Procedure] Respiratory 18 31 H Rate Respiratory Rate [Intra- Procedure] Respiratory Rate [Post- Procedure] Respiratory Rate [Pre- Procedure] Blood Pressure 171/132 132/66 132/66 Blood Pressure [Intra- Procedure] Blood Pressure [Post-Procedure ] Blood Pressure [Pre-Procedure] Blood Pressure [Right] O2 Sat by Pulse 98 100 Oximetry O2 Sat by Pulse Oximetry [ Bilateral Throughout] O2 Sat by Pulse Oximetry [ Intra-Procedure ] O2 Sat by Pulse Oximetry [Post -Procedure] O2 Sat by Pulse Oximetry [Pre- Procedure] 10/23/18 10/23/18 10/23/18 10:30 10:45 11:00 Temperature Pulse Rate 102 H 104 H 97 H Pulse Rate [ From Monitor] Pulse Rate [ Intra-Procedure ] Pulse Rate [ Post-Procedure] Pulse Rate [Pre -Procedure] Respiratory 33 H 26 H 18 Rate Respiratory Rate [Intra- Procedure] Respiratory Rate [Post- Procedure] Respiratory Rate [Pre- Procedure] Blood Pressure 132/66 139/88 139/88 Blood Pressure [Intra- Procedure] Blood Pressure [Post-Procedure ] Blood Pressure [Pre-Procedure] Blood Pressure [Right] O2 Sat by Pulse 99 100 99 Oximetry O2 Sat by Pulse Oximetry [ Bilateral Throughout] O2 Sat by Pulse Oximetry [ Intra-Procedure ] O2 Sat by Pulse Oximetry [Post -Procedure] O2 Sat by Pulse Oximetry [Pre- Procedure] 10/23/18 10/23/18 10/23/18 11:15 11:30 11:45 Temperature Pulse Rate 97 H 99 H 98 H Pulse Rate [ From Monitor] Pulse Rate [ Intra-Procedure ] Pulse Rate [ Post-Procedure] Pulse Rate [Pre -Procedure] Respiratory 18 21 19 Rate Respiratory Rate [Intra- Procedure] Respiratory Rate [Post- Procedure] Respiratory Rate [Pre- Procedure] Blood Pressure 112/46 130/55 107/61 Blood Pressure [Intra- Procedure] Blood Pressure [Post-Procedure ] Blood Pressure [Pre-Procedure] Blood Pressure [Right] O2 Sat by Pulse 99 99 98 Oximetry O2 Sat by Pulse Oximetry [ Bilateral Throughout] O2 Sat by Pulse Oximetry [ Intra-Procedure ] O2 Sat by Pulse Oximetry [Post -Procedure] O2 Sat by Pulse Oximetry [Pre- Procedure] 10/23/18 10/23/18 10/23/18 12:00 12:15 12:30 Temperature Pulse Rate 107 H 99 H 99 H Pulse Rate [ From Monitor] Pulse Rate [ Intra-Procedure ] Pulse Rate [ Post-Procedure] Pulse Rate [Pre -Procedure] Respiratory 29 H 17 20 Rate Respiratory Rate [Intra- Procedure] Respiratory Rate [Post- Procedure] Respiratory Rate [Pre- Procedure] Blood Pressure 107/61 113/60 143/59 Blood Pressure [Intra- Procedure] Blood Pressure [Post-Procedure ] Blood Pressure [Pre-Procedure] Blood Pressure [Right] O2 Sat by Pulse 99 99 99 Oximetry O2 Sat by Pulse Oximetry [ Bilateral Throughout] O2 Sat by Pulse Oximetry [ Intra-Procedure ] O2 Sat by Pulse Oximetry [Post -Procedure] O2 Sat by Pulse Oximetry [Pre- Procedure] - General Appearance General appearance: well-developed, appears stated age, other (on restrains) EENT: ATNC, PERRL Neck: supple Respiratory: Present: Clear to Ascultation Cardiology: regular, S1S2 Gastrointestinal: normoactive bowel sounds, no tenderness, no distended Integumentary: other (R LE dressing noted) Neurologic: other (stuporous) Musculoskeletal: other (no edema, R groin dialysis catheter) - Lab 10/23/18 06:21 10/23/18 06:21 Most recent lab results Calcium 8.3 mg/dL (8.4-10.2) L D 10/23/18 06:21 Phosphorus 2.20 mg/dL (2.5-4.5) L 10/23/18 06:21 Magnesium 1.50 mg/dL (1.7-2.3) L 10/23/18 06:21 Medications & Allergies - Medications Allergies/Adverse Reactions: Allergies No Known Allergies Allergy (Verified 03/24/13 05:37) Home Medications: Home Medications Medication Instructions Recorded Confirmed Last Taken Type No Known Home Medications [No 03/24/13 03/24/13 Unknown History Reported Home Medications] Active Medications: Generic Name Dose Route Start Last Admin Trade Name Freq PRN Reason Stop Dose Admin Dextrose 50 ml 10/22/18 23:28 D50w (25gm) Syringe IV PRN PRN Hypoglycemia Famotidine 20 mg 10/23/18 22:00 Pepcid IV BID MAGAN Haloperidol Lactate 5 mg 10/23/18 10:00 Haldol IV Q6H PRN Agitation Hydralazine HCl 25 mg 10/23/18 14:00 Apresoline PO Q8HR MAGAN Hydralazine HCl 10 mg 10/23/18 09:09 Apresoline IV Q4HR PRN Hypertension Acetylcysteine 8,500 mg/ 1,042.5 mls @ 65.156 mls/hr 10/23/18 03:00 10/23/18 03:40 Dextrose IV 10/23/18 18:59 65.156 mls/hr ONCE ONE Administration Sodium Chloride 1,000 mls @ 75 mls/hr 10/23/18 01:00 Nacl 0.9% 1000 Ml IV DIRECT MAGAN Sodium Chloride 100 mls @ 999 mls/hr 10/23/18 00:19 Nacl 0.9% IV SHADE PRN Hypotension Magnesium Sulfate 2 gm in 50 mls @ 25 mls/hr 10/23/18 11:00 10/23/18 11:50 Magnesium Sulfate 2gm/50ml IV 10/23/18 12:59 25 mls/hr ONCE ONE Administration Potassium Phosphate 30 mmol/ 510 mls @ 83 mls/hr 10/23/18 11:00 10/23/18 11:00 Sodium Chloride IV 10/23/18 17:08 83 mls/hr ONCE ONE Administration Insulin Human Lispro 0 unit 10/23/18 14:00 Humalog SUB-Q Q4HR [facility] Protocol Labetalol HCl 20 mg 10/23/18 09:23 10/23/18 09:54 Normodyne IV 20 mg Q6HR PRN Administration Hypertension Lorazepam 2 mg 10/23/18 10:39 10/23/18 10:43 Ativan IV 2 mg Q4H PRN Administration Agitation Metoclopramide HCl 10 mg 10/22/18 22:08 10/22/18 22:16 Reglan IV 10 mg Q6H PRN Administration Nausea And Vomiting Metoprolol Tartrate 12.5 mg 10/23/18 10:00 10/23/18 10:00 Lopressor PO Not Given BID [facility] Ondansetron HCl 4 mg 10/22/18 23:10 Zofran IV Q4H PRN Nausea And Vomiting Sodium Chloride 10 ml 10/23/18 10:00 10/23/18 10:00 Sodium Chloride Flush Syringe 10 Ml IV 10 ml BID MAGAN Administration Sodium Chloride 10 ml 10/22/18 23:10 Sodium Chloride Flush Syringe 10 Ml IV PRN PRN LINE FLUSH
[2018-10-23] MEDS: APRESOLINE PO SCH ×2 (13:09→21:48)
[2018-10-23] MEDS: HumaLOG SUB-Q SCH ×3 (14:43→21:49)
[2018-10-23 21:33] LABS: Alanine Aminotransferase 21 units/L (7-56)
[2018-10-23] MEDS: D50W (25GM) Syringe IV PRN (21:45)
[2018-10-23 21:58] LABS: Bilirubin,Direct < 0.2 mg/dL (0-0.2)
[2018-10-23] MEDS: PEPCID IV SCH (22:00)
[2018-10-24] MEDS: HumaLOG SUB-Q SCH ×6 (02:00→22:06)
[2018-10-24] MEDS: D50W (25GM) Syringe IV PRN ×5 (02:34→10:31)
[2018-10-24] MEDS ORDERED: D50W (25GM) Vial IV ONE (03:07)
[2018-10-24 05:00] LABS: BUN/Creatinine Ratio TNR; Bilirubin,Direct TNR mg/dL (0-0.2); Blood Urea Nitrogen TNR mg/dL (9-20); Calcium TNR mg/dL (8.4-10.2)
[2018-10-24 05:01] LABS: Alanine Aminotransferase TNR units/L (7-56); Albumin TNR g/dL (3.9-5)
[2018-10-24 05:02] LABS: Hemolysis Index TNR
[2018-10-24] MEDS: APRESOLINE PO SCH ×3 (06:00→22:04)
[2018-10-24 06:05] LABS: BUN/Creatinine Ratio 8; Blood Urea Nitrogen 7 mg/dL (9-20); Calcium 7.7 mg/dL (8.4-10.2); Hemolysis Index 3
[2018-10-24 08:02] LABS: Alanine Aminotransferase 21 units/L (7-56)
[2018-10-24 08:11] LABS: Bilirubin,Direct < 0.2 mg/dL (0-0.2)
--- NOTE | 2018-10-24 08:29 | Progress Note ---
Assessment and Plan Assessment and plan: The patient is a 58 YO male with history significant for Diabetes mellitus, Dyslipidemia and Depression who presented to [facility] ED with altered mental status. Unable to obtain any history from patient at this time and there was no family member at the bedside. Patient was found confused / altered by his nephew. He is usually conversant and ambulatory. There was 2 empty bottles of Acetaminophen 250 mg and Salicylate (100 pills each) and half empty bottle of Isopropyl alcohol found next to him. Labs were significant for elevated Salicylate and Acetaminophen levels. Poison center recommended hemodialysis due to AMS. Renal function is normal. Nephrology evaluated and patient received urgent hemodialysis. The patient is alert awake oriented, calm, depressed and teary --Intentional overdose; suicidal attempt 1013 status, suicidal watch Psych evaluation --Severe depression; Follow psych evaluation and recommendations --Acetaminophen overdose; Patient received Acetylcysteine per protocol As recommended by poison control Acetaminophen level is trending down LFTs mainly AST worsening secondary to Tylenol overdose Continue bicarbonate, IV fluids and supportive care Hemodialysis per nephrology --Salicylate toxicity; with altered level of consciousness Patient is more alert and awake today Received urgent hemodialysis upon admission Nephrology following --Suspected isopropyl alcohol ingestion; Nephrology following, hemodialysis as needed --Metabolic encephalopathy; secondary to drug overdose Patient is calm and quiet alert awake oriented --Hypomagnesemia; corrected --Hypophosphatemia; corrected --Hyperglycemia/diabetes mellitus; today hypoglycemic Accu-Chek sliding scale coverage, check A1c --Episodes of hypoglycemia; hold insulin, D10 W Closely monitor blood sugars --DVT prophylaxis; SCDs No Family available Plan of care reviewed with the patient's nurse Consults and recommendations noted and appreciated The high probability of a clinically significant, sudden or life threatening deterioration of the [multiple] system(s) required my full and direct attention, intervention and personal management. The aggregate critical care time was [35] minutes. This time is in addition to time spent performing reported procedures but includes the following: [x] Data Review and interpretation [x] Patient assessment and monitoring of vital signs [x] Documentation [x] Medication orders and management History Interval history: Patient seen and examined this morning medical records reviewed Patient is calm and quiet, depressed No agitation or aggression, in restraints Complaints of severe depression and suicidal thoughts Alert awake oriented 3 Vital signs reviewed Hospitalist Physical - Constitutional Vitals: Temp Pulse Resp BP Pulse Ox 97.5 F L 92 H 14 140/70 100 10/24/18 03:23 10/24/18 06:15 10/24/18 06:15 10/24/18 06:15 10/24/18 06:15 General appearance: Present: no acute distress, well-nourished, other (depressed, teary) - EENT Eyes: Present: PERRL, EOM intact - Neck Neck: Present: supple, normal ROM - Respiratory Respiratory: bilateral: diminished, negative: rales, rhonchi, wheezing - Cardiovascular Rhythm: regular Heart Sounds: Present: S1 & S2 - Extremities Extremities: no ischemia, No edema - Abdominal General gastrointestinal: soft, non-tender, non-distended, normal bowel sounds - Integumentary Integumentary: Present: clear, warm - Psychiatric Psychiatric: cooperative, depressed - Neurologic Neurologic: moves all extremities Results - Labs CBC & Chem 7: 10/23/18 06:21 10/24/18 05:20 Labs: Laboratory Last Values WBC 22.8 K/mm3 (4.5-11.0) H 10/23/18 06:21 RBC 4.46 M/mm3 (3.65-5.03) 10/23/18 06:21 Hgb 13.1 gm/dl (11.8-15.2) 10/23/18 06:21 Hct 39.3 % (35.5-45.6) 10/23/18 06:21 MCV 88 fl (84-94) 10/23/18 06:21 MCH 30 pg (28-32) 10/23/18 06:21 MCHC 34 % (32-34) 10/23/18 06:21 RDW 14.1 % (13.2-15.2) 10/23/18 06:21 Plt Count 258 K/mm3 (140-440) 10/23/18 06:21 Lymph # Staff Development Coordinator Rn 10/22/18 20:10 Add Manual Diff Complete 10/23/18 06:21 Total Counted 100 10/23/18 06:21 Seg Neuts % (Manual) 91.0 % (40.0-70.0) H 10/23/18 06:21 1.0 % 10/23/18 06:21 5.0 % (13.4-35.0) L 10/23/18 06:21 Reactive Lymphs % (Man) 0 % 10/23/18 06:21 3.0 % (0.0-7.3) 10/23/18 06:21 0 % (0.0-4.3) 10/23/18 06:21 0 % (0.0-1.8) 10/23/18 06:21 0 % 10/23/18 06:21 0 % 10/23/18 06:21 0 % 10/23/18 06:21 0 % 10/23/18 06:21 Nucleated RBC % Not Reportable 10/23/18 06:21 Seg Neutrophils # Man 20.7 K/mm3 (1.8-7.7) H 10/23/18 06:21 Band Neutrophils # 0.2 K/mm3 10/23/18 06:21 1.1 K/mm3 (1.2-5.4) L 10/23/18 06:21 Abs React Lymphs (Man) 0.0 K/mm3 10/23/18 06:21 0.7 K/mm3 (0.0-0.8) 10/23/18 06:21 0.0 K/mm3 (0.0-0.4) 10/23/18 06:21 0.0 K/mm3 (0.0-0.1) 10/23/18 06:21 0.0 K/mm3 10/23/18 06:21 0.0 K/mm3 10/23/18 06:21 0.0 K/mm3 10/23/18 06:21 Blast Cells # 0.0 K/mm3 10/23/18 06:21 WBC Morphology Not Reportable 10/23/18 06:21 Hypersegmented Neuts Not Reportable 10/23/18 06:21 Hyposegmented Neuts Not Reportable 10/23/18 06:21 Hypogranular Neuts Not Reportable 10/23/18 06:21 Not Reportable 10/23/18 06:21 Not Reportable 10/23/18 06:21 Not Reportable 10/23/18 06:21 Not Reportable 10/23/18 06:21 Not Reportable 10/23/18 06:21 Not Reportable 10/23/18 06:21 Consistent w auto 10/23/18 06:21 Not Reportable 10/23/18 06:21 Plt Clumps, EDTA Not Reportable 10/23/18 06:21 Not Reportable 10/23/18 06:21 Not Reportable 10/23/18 06:21 Not Reportable 10/23/18 06:21 Plt Morphology Comment Not Reportable 10/23/18 06:21 RBC Morphology Normal 10/23/18 06:21 Dimorphic RBCs Not Reportable 10/23/18 06:21 Not Reportable 10/23/18 06:21 Not Reportable 10/23/18 06:21 Not Reportable 10/23/18 06:21 Not Reportable 10/23/18 06:21 Not Reportable 10/23/18 06:21 Not Reportable 10/23/18 06:21 Not Reportable 10/23/18 06:21 Not Reportable 10/23/18 06:21 Not Reportable 10/23/18 06:21 Not Reportable 10/23/18 06:21 Not Reportable 10/23/18 06:21 Not Reportable 10/23/18 06:21 Not Reportable 10/23/18 06:21 Not Reportable 10/23/18 06:21 Not Reportable 10/23/18 06:21 Not Reportable 10/23/18 06:21 Not Reportable 10/23/18 06:21 Not Reportable 10/23/18 06:21 Not Reportable 10/23/18 06:21 Acanthocytes (Spur) Not Reportable 10/23/18 06:21 Rouleaux Not Reportable 10/23/18 06:21 Not Reportable 10/23/18 06:21 Not Reportable 10/23/18 06:21 Not Reportable 10/23/18 06:21 Not Reportable 10/23/18 06:21 Hem Pathologist Commnt No 10/23/18 06:21 PT 16.4 Sec. (12.2-14.9) H 10/23/18 11:50 INR 1.36 (0.87-1.13) H 10/23/18 11:50 APTT 27.8 Sec. (24.2-36.6) 10/23/18 11:50 POC ABG pH 7.543 (7.35-7.45) H 10/23/18 01:42 POC ABG pCO2 < 30 (35-45) L 10/23/18 01:42 POC ABG pO2 95 (80-105) 10/23/18 01:42 POC ABG HCO3 18.5 (22-26 mml/L) 10/23/18 01:42 POC ABG Total CO2 19 (23-27mmol/L) 10/23/18 01:42 POC ABG O2 Sat 98 10/23/18 01:42 POC ABG Base Excess -4 ((-2) - (+3)mmol/L) 10/23/18 01:42 3 % 10/23/18 01:42 Sodium 141 mmol/L (137-145) 10/24/18 05:20 Potassium 3.6 mmol/L (3.6-5.0) 10/24/18 05:20 Chloride 104.0 mmol/L (98-107) 10/24/18 05:20 Carbon Dioxide 29 mmol/L (22-30) D 10/24/18 05:20 12 mmol/L 10/24/18 05:20 BUN 7 mg/dL (9-20) L 10/24/18 05:20 0.9 mg/dL (0.8-1.5) 10/24/18 05:20 Estimated GFR > 60 ml/min 10/24/18 05:20 8 % 10/24/18 05:20 Glucose 164 mg/dL (75-100) H 10/24/18 05:20 POC Glucose 146 (70-105) H 10/24/18 05:50 287 Mosm/kg 10/24/18 Unknown Lactic Acid 1.90 mmol/L (0.7-2.0) 10/22/18 20:10 Calcium 7.7 mg/dL (8.4-10.2) L 10/24/18 05:20 Phosphorus TNR 10/24/18 02:31 Magnesium TNR 10/24/18 02:31 0.30 mg/dL (0.1-1.2) 10/24/18 05:20 < 0.2 mg/dL (0-0.2) 10/24/18 05:20 0.1 mg/dL 10/24/18 05:20 AST 70 units/L (5-40) H 10/24/18 05:20 ALT 21 units/L (7-56) 10/24/18 05:20 35 units/L (35-129) 10/24/18 05:20 43.0 umol/L (25-60) 10/22/18 20:10 < 0.010 ng/mL (0.00-0.029) 10/22/18 20:10 6.0 g/dL (6.3-8.2) L 10/24/18 05:20 4.0 g/dL (3.9-5) 10/24/18 05:20 2.0 % 10/24/18 05:20 TSH 1.150 mlU/mL (0.270-4.200) 10/22/18 20:10 Yellow (Yellow) 10/22/18 20:32 Clear (Clear) 10/22/18 20:32 7.0 (5.0-7.0) 10/22/18 20:32 Ur Specific [place] 1.013 (1.003-1.030) 10/22/18 20:32 <15 mg/dl mg/dL (Negative) 10/22/18 20:32 50 mg/dL (Negative) 10/22/18 20:32 Neg mg/dL (Negative) 10/22/18 20:32 Neg (Negative) 10/22/18 20:32 Neg (Negative) 10/22/18 20:32 Neg (Negative) 10/22/18 20:32 < 2.0 mg/dL (<2.0) 10/22/18 20:32 Ur Leukocyte Esterase Neg (Negative) 10/22/18 20:32 < 1.0 /HPF (0.0-6.0) 10/22/18 20:32 2.0 /HPF (0.0-6.0) 10/22/18 20:32 U Epithel Cells (Auto) < 1.0 /HPF (0-13.0) 10/22/18 20:32 Salicylates 29.8 mg/dL (2.8-20.0) H 10/23/18 09:15 Presumptive negative 10/22/18 20:09 Presumptive negative 10/22/18 20:09 Acetaminophen 51.0 ug/mL (10.0-30.0) H 10/23/18 09:15 Ur Barbiturates Screen Presumptive negative 10/22/18 20:09 Ur Phencyclidine Scrn Presumptive negative 10/22/18 20:09 Ur Amphetamines Screen Presumptive negative 10/22/18 20:09 U Benzodiazepines Scrn Presumptive negative 10/22/18 20:09 Presumptive negative 10/22/18 20:09 U Marijuana (THC) Screen Presumptive negative 10/22/18 20:09 Disclamer 10/22/18 20:09 Plasma/Serum Alcohol < 0.01 % (0-0.07) 10/22/18 20:10 Hepatitis A IgM Ab Non-reactive (NonReactive) 10/23/18 01:05 Hep Bs Antigen Non-reactive (Negative) 10/23/18 01:05 Hep B Core IgM Ab Non-reactive (NonReactive) 10/23/18 01:05 Non-reactive (NonReactive) 10/23/18 01:05 Active Medications - Current Medications Current Medications: Generic Name Dose Route Start Last Admin Trade Name Freq PRN Reason Stop Dose Admin Dextrose 50 ml 10/22/18 23:28 10/24/18 03:13 D50w (25gm) Syringe IV 50 ml PRN PRN Administration Hypoglycemia Famotidine 20 mg 10/23/18 22:00 10/23/18 22:00 Pepcid IV 20 mg BID MAGAN Administration Haloperidol Lactate 5 mg 10/23/18 10:00 Haldol IV Q6H PRN Agitation Hydralazine HCl 25 mg 10/23/18 14:00 10/24/18 06:00 Apresoline PO 25 mg Q8HR MAGAN Administration Hydralazine HCl 10 mg 10/23/18 09:09 Apresoline IV Q4HR PRN Hypertension Sodium Chloride 100 mls @ 999 mls/hr 10/23/18 13:00 Nacl 0.9% IV SHADE PRN Hypotension Dextrose/Sodium Chloride 1,000 mls @ 75 mls/hr 10/24/18 09:00 D5/0.45ns IV DIRECT MAGAN Insulin Human Lispro 0 unit 10/23/18 14:00 10/24/18 06:46 Humalog SUB-Q Not Given Q4HR [facility] Protocol Labetalol HCl 20 mg 10/23/18 09:23 10/23/18 09:54 Normodyne IV 20 mg Q6HR PRN Administration Hypertension Lorazepam 2 mg 10/23/18 10:39 10/23/18 14:50 Ativan IV 2 mg Q4H PRN Administration Agitation Metoclopramide HCl 10 mg 10/22/18 22:08 10/22/18 22:16 Reglan IV 10 mg Q6H PRN Administration Nausea And Vomiting Metoprolol Tartrate 12.5 mg 10/23/18 10:00 10/23/18 21:47 Lopressor PO 12.5 mg BID MAGAN Administration Ondansetron HCl 4 mg 10/22/18 23:10 Zofran IV Q4H PRN Nausea And Vomiting Sodium Chloride 10 ml 10/23/18 10:00 10/23/18 22:00 Sodium Chloride Flush Syringe 10 Ml IV 10 ml BID MAGAN Administration Sodium Chloride 10 ml 10/22/18 23:10 Sodium Chloride Flush Syringe 10 Ml IV PRN PRN LINE FLUSH Nutrition/Malnutrition Assess - Dietary Evaluation Nutrition/Malnutrition Findings: Nutrition Notes Start: 10/23/18 16:33 Freq: Status: Active Protocol: Document 10/23/18 16:33 RM (Rec: 10/23/18 16:38 RM [id number]) Nutrition 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 Roberto 13 points. Pt and pt sister in room at time of visit. Pt alseep at time of visit. 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 Burn Absent Trauma Absent Nutrition Intervention Follow-Up By: 10/26/18 Additional Comments Follow for PO intakes
[2018-10-24] MEDS ORDERED: D5/0.45NS 1,000 ML IV SCH (09:00)
[2018-10-24] MEDS: LOPRESSOR PO SCH ×2 (10:21→22:03)
[2018-10-24] MEDS: PEPCID IV SCH ×2 (10:21→22:03)
[2018-10-24] MEDS: SODIUM CHLORIDE FLUSH SYRINGE 10 ML IV SCH ×2 (10:22→22:05)
[2018-10-24 11:18] LABS: INR 1.15 (0.87-1.13)
--- NOTE | 2018-10-24 11:18 | Progress Note ---
Assessment and Plan 1. Salicylate toxicity: Patient presented with elevated salicylate level and associated AMS. He underwent hemodialysis twice yesterday. Continue IV fluids. Salicylate level is normal today. MS is better. Monitor. 2. FEN: Anion gap MA, improved with HD. Continue bicarbonate drip. Monitor lytes. 3. Acetaminophen OD: S/p Acetylcyteine. 4. Suspected Isopropyl alcohol ingestion: Isopropyl alcohol level ordered. Osmolar gap has improved. 5. AMS: Improved. 6. Hypertension: BP controlled. 7. DM. 8. Depression. Subjective Date of service: 10/24/18 Interval history: Patient was seen and examined at the bedside. Objective - Vital Signs Vital signs: Vital Signs - 12hr 10/23/18 10/23/18 10/23/18 23:31 23:38 23:45 Temperature Pulse Rate 94 H 102 H 104 H Pulse Rate [ From Monitor] Respiratory 17 23 20 Rate Blood Pressure 109/68 109/68 109/68 O2 Sat by Pulse 100 100 100 Oximetry 10/23/18 10/23/18 10/24/18 23:48 23:55 00:01 Temperature Pulse Rate 100 H 96 H Pulse Rate [ 106 H From Monitor] Respiratory 19 24 19 Rate Blood Pressure 109/68 109/65 O2 Sat by Pulse 100 99 100 Oximetry 10/24/18 10/24/18 10/24/18 00:15 00:30 00:45 Temperature Pulse Rate 96 H 93 H 90 Pulse Rate [ From Monitor] Respiratory 16 17 18 Rate Blood Pressure 130/67 106/58 112/67 O2 Sat by Pulse 100 99 99 Oximetry 10/24/18 10/24/18 10/24/18 01:00 01:15 01:30 Temperature Pulse Rate 86 83 84 Pulse Rate [ From Monitor] Respiratory 19 19 18 Rate Blood Pressure 112/67 126/61 125/70 O2 Sat by Pulse 99 100 100 Oximetry 10/24/18 10/24/18 10/24/18 01:45 02:00 02:15 Temperature Pulse Rate 81 80 80 Pulse Rate [ From Monitor] Respiratory 18 18 19 Rate Blood Pressure 125/70 113/68 113/68 O2 Sat by Pulse 100 100 99 Oximetry 10/24/18 10/24/18 10/24/18 02:31 02:45 03:01 Temperature Pulse Rate 80 85 86 Pulse Rate [ From Monitor] Respiratory 20 13 14 Rate Blood Pressure 154/76 144/68 131/71 O2 Sat by Pulse 100 100 99 Oximetry 10/24/18 10/24/18 10/24/18 03:15 03:23 03:31 Temperature 97.5 F L Pulse Rate 86 93 H Pulse Rate [ From Monitor] Respiratory 14 17 Rate Blood Pressure 131/71 131/71 O2 Sat by Pulse 100 99 Oximetry 10/24/18 10/24/18 10/24/18 03:45 04:00 04:01 Temperature Pulse Rate 94 H 90 Pulse Rate [ 106 H From Monitor] Respiratory 19 24 15 Rate Blood Pressure 116/68 116/80 O2 Sat by Pulse 100 99 99 Oximetry 10/24/18 10/24/18 10/24/18 04:15 04:31 04:45 Temperature Pulse Rate 90 89 88 Pulse Rate [ From Monitor] Respiratory 15 14 14 Rate Blood Pressure 116/80 124/78 140/65 O2 Sat by Pulse 99 98 98 Oximetry 10/24/18 10/24/18 10/24/18 05:00 05:15 05:31 Temperature Pulse Rate 89 92 H 93 H Pulse Rate [ From Monitor] Respiratory 14 20 14 Rate Blood Pressure 146/70 124/73 124/73 O2 Sat by Pulse 98 99 99 Oximetry 10/24/18 10/24/18 10/24/18 05:45 06:00 06:01 Temperature Pulse Rate 94 H 95 H 91 H Pulse Rate [ 106 H From Monitor] Respiratory 18 24 19 Rate Blood Pressure 157/87 140/95 150/80 O2 Sat by Pulse 98 99 100 Oximetry 10/24/18 10/24/18 10/24/18 06:15 08:39 10:21 Temperature Pulse Rate 92 H 88 Pulse Rate [ From Monitor] Respiratory 14 Rate Blood Pressure 140/70 154/72 O2 Sat by Pulse 100 99 Oximetry - General Appearance General appearance: well-developed, appears stated age, other (no distress, on restrains) EENT: ATNC, PERRL, hearing intact, vision intact Neck: supple Respiratory: Present: Clear to Ascultation Cardiology: regular, S1S2, no murmurs Gastrointestinal: normoactive bowel sounds, no tenderness, no distended Integumentary: warm and dry Neurologic: no focal deficit, no asterixis, alert and oriented x3 Musculoskeletal: other (no edema, L BKA) - Lab 10/23/18 06:21 10/24/18 05:20 Most recent lab results Calcium 7.7 mg/dL (8.4-10.2) L 10/24/18 05:20 Phosphorus TNR 10/24/18 02:31 Magnesium TNR 10/24/18 02:31 Medications & Allergies - Medications Allergies/Adverse Reactions: Allergies No Known Allergies Allergy (Verified 03/24/13 05:37) Home Medications: Home Medications Medication Instructions Recorded Confirmed Last Taken Type Aspirin EC 81 mg PO QDAY 10/23/18 10/23/18 Unknown History Rosuvastatin Calcium 20 mg PO QDAY 10/23/18 10/23/18 Unknown History Vitamin D3 50,000UNIT CAP 50,000 units PO 1XW 10/23/18 10/23/18 Unknown History glipiZIDE [Glucotrol] 5 mg PO BID 10/23/18 10/23/18 Unknown History Active Medications: Generic Name Dose Route Start Last Admin Trade Name Freq PRN Reason Stop Dose Admin Dextrose 50 ml 10/22/18 23:28 10/24/18 10:31 D50w (25gm) Syringe IV 50 ml PRN PRN Administration Hypoglycemia Famotidine 20 mg 10/23/18 22:00 10/24/18 10:21 Pepcid IV 20 mg BID MAGAN Administration Haloperidol Lactate 5 mg 10/23/18 10:00 Haldol IV Q6H PRN Agitation Hydralazine HCl 25 mg 10/23/18 14:00 10/24/18 06:00 Apresoline PO 25 mg Q8HR MAGAN Administration Hydralazine HCl 10 mg 10/23/18 09:09 Apresoline IV Q4HR PRN Hypertension Sodium Chloride 100 mls @ 999 mls/hr 10/23/18 13:00 Nacl 0.9% IV SHADE PRN Hypotension Dextrose/Sodium Chloride 1,000 mls @ 75 mls/hr 10/24/18 09:00 10/24/18 10:25 D5/0.45ns IV 75 mls/hr DIRECT MAGAN Administration Insulin Human Lispro 0 unit 10/23/18 14:00 10/24/18 10:20 Humalog SUB-Q Not Given Q4HR MAGAN Protocol Labetalol HCl 20 mg 10/23/18 09:23 10/23/18 09:54 Normodyne IV 20 mg Q6HR PRN Administration Hypertension Lorazepam 2 mg 10/23/18 10:39 10/23/18 14:50 Ativan IV 2 mg Q4H PRN Administration Agitation Metoclopramide HCl 10 mg 10/22/18 22:08 10/22/18 22:16 Reglan IV 10 mg Q6H PRN Administration Nausea And Vomiting Metoprolol Tartrate 12.5 mg 10/23/18 10:00 10/24/18 10:21 Lopressor PO 12.5 mg BID MAGAN Administration Ondansetron HCl 4 mg 10/22/18 23:10 Zofran IV Q4H PRN Nausea And Vomiting Sodium Chloride 10 ml 10/23/18 10:00 10/24/18 10:22 Sodium Chloride Flush Syringe 10 Ml IV 10 ml BID MAGAN Administration Sodium Chloride 10 ml 10/22/18 23:10 Sodium Chloride Flush Syringe 10 Ml IV PRN PRN LINE FLUSH
--- NOTE | 2018-10-24 11:23 | Consultation ---
History of Present Illness History of present illness: arousable Past History Past Medical History: diabetes, hyperlipidemia, other (depression) Medications and Allergies Allergies Allergy/AdvReac Type Severity Reaction Status Date / Time No Known Allergies Allergy Verified 03/24/13 05:37 Home Medications Medication Instructions Recorded Confirmed Last Taken Type Aspirin EC 81 mg PO QDAY 10/23/18 10/23/18 Unknown History Rosuvastatin Calcium 20 mg PO QDAY 10/23/18 10/23/18 Unknown History Vitamin D3 50,000UNIT CAP 50,000 units PO 1XW 10/23/18 10/23/18 Unknown History glipiZIDE [Glucotrol] 5 mg PO BID 10/23/18 10/23/18 Unknown History Active Meds: Active Medications Dextrose (D50w (25gm) Syringe) 50 ml IV PRN PRN PRN Reason: Hypoglycemia Last Admin: 10/24/18 10:31 Dose: 50 ml Documented by: Famotidine (Pepcid) 20 mg IV BID MAGAN Last Admin: 10/24/18 10:21 Dose: 20 mg Documented by: Haloperidol Lactate (Haldol) 5 mg IV Q6H PRN PRN Reason: Agitation Hydralazine HCl (Apresoline) 25 mg PO Q8HR MAGAN Last Admin: 10/24/18 06:00 Dose: 25 mg Documented by: Hydralazine HCl (Apresoline) 10 mg IV Q4HR PRN PRN Reason: Hypertension Sodium Chloride (Nacl 0.9%) 100 mls @ 999 mls/hr IV SHADE PRN PRN Reason: Hypotension Dextrose/Sodium Chloride (D5/0.45ns) 1,000 mls @ 75 mls/hr IV DIRECT MAGAN Last Admin: 10/24/18 10:25 Dose: 75 mls/hr Documented by: Insulin Human Lispro (Humalog) 0 unit SUB-Q Q4HR MAGAN; Protocol Last Admin: 10/24/18 10:20 Dose: Not Given Documented by: Labetalol HCl (Normodyne) 20 mg IV Q6HR PRN PRN Reason: Hypertension Last Admin: 10/23/18 09:54 Dose: 20 mg Documented by: Lorazepam (Ativan) 2 mg IV Q4H PRN PRN Reason: Agitation Last Admin: 10/23/18 14:50 Dose: 2 mg Documented by: Metoclopramide HCl (Reglan) 10 mg IV Q6H PRN PRN Reason: Nausea And Vomiting Last Admin: 10/22/18 22:16 Dose: 10 mg Documented by: Metoprolol Tartrate (Lopressor) 12.5 mg PO BID [facility] Last Admin: 10/24/18 10:21 Dose: 12.5 mg Documented by: Ondansetron HCl (Zofran) 4 mg IV Q4H PRN PRN Reason: Nausea And Vomiting Sodium Chloride (Sodium Chloride Flush Syringe 10 Ml) 10 ml IV BID [facility] Last Admin: 10/24/18 10:22 Dose: 10 ml Documented by: Sodium Chloride (Sodium Chloride Flush Syringe 10 Ml) 10 ml IV PRN PRN PRN Reason: LINE FLUSH Physical Examination Vital signs: Vital Signs Temp Pulse Resp BP Pulse Ox 97.4 F L 86 18 130/64 99 10/22/18 19:54 10/22/18 19:54 10/22/18 19:54 10/22/18 19:54 10/22/18 19:54 General appearance: no acute distress Eyes: non-icteric ENT: oropharynx moist Neck: supple Effort: normal Cardiovascular: regular rate and rhythm Gastrointestinal: normoactive bowel sounds Integumentary: normal Extremities: no cyanosis Musculoskeletal: no deformities normal mental status Results - Laboratory Findings CBC and BMP: 10/23/18 06:21 10/24/18 05:20 ABG POC ABG pH 7.543 (7.35-7.45) H 10/23/18 01:42 POC ABG pCO2 < 30 (35-45) L 10/23/18 01:42 POC ABG pO2 95 (80-105) 10/23/18 01:42 POC ABG HCO3 18.5 (22-26 mml/L) 10/23/18 01:42 POC ABG Total CO2 19 (23-27mmol/L) 10/23/18 01:42 POC ABG O2 Sat 98 10/23/18 01:42 PT/INR, D-dimer PT 14.4 Sec. (12.2-14.9) 10/24/18 10:48 INR 1.15 (0.87-1.13) H 10/24/18 10:48 Abnormal lab findings: Abnormal Labs 10/22/18 10/22/18 10/22/18 19:59 20:10 20:10 WBC 12.7 H MCHC 35 H Seg Neuts % (Manual) Lymphocytes % (Manual) Monocytes % (Manual) 12.0 H Seg Neutrophils # Man 7.9 H Lymphocytes # (Manual) Monocytes # (Manual) 1.5 H PT INR APTT POC ABG pH POC ABG pCO2 Potassium 3.4 L Carbon Dioxide 21 L BUN Glucose 137 H POC Glucose 118 H Calcium Phosphorus Magnesium AST Total Protein Salicylates Acetaminophen 10/22/18 10/22/18 10/22/18 20:10 20:10 22:01 WBC MCHC Seg Neuts % (Manual) Lymphocytes % (Manual) Monocytes % (Manual) Seg Neutrophils # Man Lymphocytes # (Manual) Monocytes # (Manual) PT INR APTT POC ABG pH POC ABG pCO2 Potassium Carbon Dioxide BUN Glucose POC Glucose Calcium Phosphorus Magnesium AST Total Protein Salicylates 34.0 H 40.1 H Acetaminophen 146.2 H 10/22/18 10/22/18 10/22/18 23:24 23:24 23:24 WBC MCHC Seg Neuts % (Manual) Lymphocytes % (Manual) Monocytes % (Manual) Seg Neutrophils # Man Lymphocytes # (Manual) Monocytes # (Manual) PT INR APTT 23.7 L POC ABG pH POC ABG pCO2 Potassium Carbon Dioxide BUN Glucose POC Glucose Calcium Phosphorus Magnesium AST Total Protein Salicylates 49.4 H Acetaminophen 168.6 H 10/23/18 10/23/18 10/23/18 01:05 01:05 01:42 WBC MCHC Seg Neuts % (Manual) Lymphocytes % (Manual) Monocytes % (Manual) Seg Neutrophils # Man Lymphocytes # (Manual) Monocytes # (Manual) PT INR APTT POC ABG pH 7.543 H POC ABG pCO2 < 30 L Potassium Carbon Dioxide BUN Glucose POC Glucose Calcium Phosphorus Magnesium AST Total Protein Salicylates 49.1 H Acetaminophen 151.1 H 10/23/18 10/23/18 10/23/18 02:06 06:21 06:21 WBC 22.8 H MCHC Seg Neuts % (Manual) 91.0 H Lymphocytes % (Manual) 5.0 L Monocytes % (Manual) Seg Neutrophils # Man 20.7 H Lymphocytes # (Manual) 1.1 L Monocytes # (Manual) PT INR APTT POC ABG pH POC ABG pCO2 Potassium Carbon Dioxide 20 L BUN Glucose 234 H POC Glucose 296 H Calcium 8.3 L D Phosphorus Magnesium AST Total Protein Salicylates Acetaminophen 10/23/18 10/23/18 10/23/18 06:21 06:21 06:21 WBC MCHC Seg Neuts % (Manual) Lymphocytes % (Manual) Monocytes % (Manual) Seg Neutrophils # Man Lymphocytes # (Manual) Monocytes # (Manual) PT 15.4 H INR 1.25 H APTT POC ABG pH POC ABG pCO2 Potassium Carbon Dioxide BUN Glucose POC Glucose Calcium Phosphorus Magnesium AST Total Protein Salicylates 32.2 H Acetaminophen 65.3 H 10/23/18 10/23/18 10/23/18 06:21 07:58 08:57 WBC MCHC Seg Neuts % (Manual) Lymphocytes % (Manual) Monocytes % (Manual) Seg Neutrophils # Man Lymphocytes # (Manual) Monocytes # (Manual) PT INR APTT POC ABG pH POC ABG pCO2 Potassium Carbon Dioxide BUN Glucose POC Glucose 202 H 202 H Calcium Phosphorus 2.20 L Magnesium 1.50 L AST Total Protein Salicylates Acetaminophen 10/23/18 10/23/18 10/23/18 09:15 09:15 10:12 WBC MCHC Seg Neuts % (Manual) Lymphocytes % (Manual) Monocytes % (Manual) Seg Neutrophils # Man Lymphocytes # (Manual) Monocytes # (Manual) PT INR APTT POC ABG pH POC ABG pCO2 Potassium Carbon Dioxide BUN Glucose POC Glucose 174 H Calcium Phosphorus Magnesium AST Total Protein Salicylates 29.8 H Acetaminophen 51.0 H 10/23/18 10/23/18 10/23/18 10:29 11:50 11:50 WBC MCHC Seg Neuts % (Manual) Lymphocytes % (Manual) Monocytes % (Manual) Seg Neutrophils # Man Lymphocytes # (Manual) Monocytes # (Manual) PT 16.4 H INR 1.36 H APTT POC ABG pH POC ABG pCO2 Potassium Carbon Dioxide BUN Glucose POC Glucose 180 H Calcium Phosphorus Magnesium AST 58 H Total Protein Salicylates Acetaminophen 10/23/18 10/23/18 10/23/18 14:26 18:32 20:40 WBC MCHC Seg Neuts % (Manual) Lymphocytes % (Manual) Monocytes % (Manual) Seg Neutrophils # Man Lymphocytes # (Manual) Monocytes # (Manual) PT INR APTT POC ABG pH POC ABG pCO2 Potassium Carbon Dioxide BUN Glucose POC Glucose 169 H 152 H Calcium Phosphorus Magnesium AST 69 H Total Protein Salicylates Acetaminophen 10/23/18 10/24/18 10/24/18 21:31 02:10 03:44 WBC MCHC Seg Neuts % (Manual) Lymphocytes % (Manual) Monocytes % (Manual) Seg Neutrophils # Man Lymphocytes # (Manual) Monocytes # (Manual) PT INR APTT POC ABG pH POC ABG pCO2 Potassium Carbon Dioxide BUN Glucose POC Glucose 57 L < 40 L 279 H Calcium Phosphorus Magnesium AST Total Protein Salicylates Acetaminophen 10/24/18 10/24/18 10/24/18 04:08 05:20 05:20 WBC MCHC Seg Neuts % (Manual) Lymphocytes % (Manual) Monocytes % (Manual) Seg Neutrophils # Man Lymphocytes # (Manual) Monocytes # (Manual) PT INR APTT POC ABG pH POC ABG pCO2 Potassium Carbon Dioxide BUN 7 L Glucose 164 H POC Glucose 215 H Calcium 7.7 L Phosphorus Magnesium AST 70 H Total Protein 6.0 L Salicylates Acetaminophen 10/24/18 10/24/18 10/24/18 05:50 09:32 10:48 WBC MCHC Seg Neuts % (Manual) Lymphocytes % (Manual) Monocytes % (Manual) Seg Neutrophils # Man Lymphocytes # (Manual) Monocytes # (Manual) PT INR 1.15 H APTT POC ABG pH POC ABG pCO2 Potassium Carbon Dioxide BUN Glucose POC Glucose 146 H Calcium Phosphorus Magnesium AST Total Protein Salicylates Acetaminophen < 5.0 L Assessment and Plan - Patient Problems (1) Acute metabolic encephalopathy Current Visit: Yes Status: Acute (2) Intentional drug overdose Current Visit: Yes Status: Acute (3) Isopropyl alcohol poisoning Current Visit: Yes Status: Acute (4) Salicylate overdose Current Visit: Yes Status: Acute
[2018-10-24 11:34] LABS: Alanine Aminotransferase 23 units/L (7-56); Albumin 3.8 g/dL (3.9-5)
[2018-10-24 11:36] LABS: Bilirubin,Direct < 0.2 mg/dL (0-0.2)
[2018-10-24] MEDS: D10W 1,000 ML IV SCH (14:22)
[2018-10-25] MEDS: HumaLOG SUB-Q SCH ×6 (02:10→22:00)
[2018-10-25] MEDS: D10W 1,000 ML IV SCH ×2 (02:51→17:34)
[2018-10-25 04:50] LABS: Basophils # (Auto) 0.1 K/mm3 (0.0-0.1); Basophils % (Auto) 0.7 % (0.0-1.8); Eosinophils % (Auto) 0.5 % (0.0-4.3); Hematocrit 36.9 % (35.5-45.6); Hemoglobin 12.6 gm/dl (11.8-15.2); Lymphocytes # (Auto) 2.1 K/mm3 (1.2-5.4); Lymphocytes % (Auto) 24.4 % (13.4-35.0); Mean Corpuscular HGB Conc 34 % (32-34); Mean Corpuscular Volume 87 fl (84-94); Monocytes # (Auto) 1.1 K/mm3 (0.0-0.8); Monocytes % (Auto) 12.3 % (0.0-7.3); Platelet Count 206 K/mm3 (140-440); Red Blood Count 4.22 M/mm3 (3.65-5.03)
[2018-10-25 05:11] LABS: Alanine Aminotransferase 24 units/L (7-56); Albumin 3.8 g/dL (3.9-5); BUN/Creatinine Ratio 6; Blood Urea Nitrogen 5 mg/dL (9-20); Calcium 8.5 mg/dL (8.4-10.2); Hemolysis Index 6
[2018-10-25] MEDS: APRESOLINE PO SCH ×3 (06:23→22:48)
--- NOTE | 2018-10-25 08:57 | Progress Note ---
Assessment and Plan Assessment and plan: The patient is a 58 YO male with history significant for Diabetes mellitus, Dyslipidemia and Depression who presented to [facility] ED with altered mental status. Unable to obtain any history from patient at this time and there was no family member at the bedside. Patient was found confused / altered by his nephew. He is usually conversant and ambulatory. There was 2 empty bottles of Acetaminophen 250 mg and Salicylate (100 pills each) and half empty bottle of Isopropyl alcohol found next to him. Labs were significant for elevated Salicylate and Acetaminophen levels. Poison center recommended hemodialysis due to AMS. Renal function is normal. Nephrology evaluated and patient received urgent hemodialysis. The patient is alert awake oriented, calm, depressed and teary --Intentional overdose; suicidal attempt 1013 status, suicidal watch Psych evaluation --Severe depression; Follow psych evaluation and recommendations --Acetaminophen overdose; Patient received Acetylcysteine per protocol As recommended by poison control Acetaminophen level within normal limits LFTs mainly AST worsening secondary to Tylenol overdose Supportive care, nephrology following --Salicylate toxicity; salicylate level was within normal limits Patient is more alert and awake today Received urgent hemodialysis upon admission Nephrology following --Suspected isopropyl alcohol ingestion; Nephrology following, hemodialysis as needed --Metabolic encephalopathy; secondary to drug overdose Resolved back to baseline --Hypomagnesemia; corrected --Hypophosphatemia; corrected --Hyperglycemia/diabetes mellitus; today hypoglycemic Accu-Chek sliding scale coverage, check A1c --Episodes of hypoglycemia; hold insulin, D10 W Closely monitor blood sugars --DVT prophylaxis; SCDs No Family available Plan of care reviewed with the patient's nurse Consults and recommendations noted and appreciated The high probability of a clinically significant, sudden or life threatening deterioration of the [multiple] system(s) required my full and direct attention, intervention and personal management. The aggregate critical care time was [32] minutes. This time is in addition to time spent performing reported procedures but includes the following: [x] Data Review and interpretation [x] Patient assessment and monitoring of vital signs [x] Documentation [x] Medication orders and management Patient is stable to be transferred out of ICU History Interval history: Patient seen and examined medical records revealed Patient is more alert and awake responding appropriately Complaints of depression, and suicidal thoughts Alert awake oriented 3 Vital signs noted Hospitalist Physical - Constitutional Vitals: Temp Pulse Resp BP Pulse Ox 98.7 F 91 H 16 147/80 97 10/25/18 08:00 10/25/18 07:01 10/25/18 07:01 10/25/18 07:01 10/25/18 07:01 General appearance: Present: no acute distress, well-nourished, other (depressed, teary) - EENT Eyes: Present: PERRL, EOM intact - Neck Neck: Present: supple, normal ROM - Respiratory Respiratory effort: normal Respiratory: bilateral: diminished, negative: rales, rhonchi, wheezing - Cardiovascular Rhythm: regular Heart Sounds: Present: S1 & S2 - Extremities Extremities: no ischemia, No edema - Abdominal General gastrointestinal: soft, non-tender, non-distended, normal bowel sounds - Integumentary Integumentary: Present: clear, warm - Psychiatric Psychiatric: appropriate mood/affect, cooperative - Neurologic Neurologic: CNII-XII intact, moves all extremities Results - Labs CBC & Chem 7: 10/25/18 04:34 10/25/18 04:34 Labs: Laboratory Last Values WBC 8.7 K/mm3 (4.5-11.0) 10/25/18 04:34 RBC 4.22 M/mm3 (3.65-5.03) 10/25/18 04:34 Hgb 12.6 gm/dl (11.8-15.2) 10/25/18 04:34 Hct 36.9 % (35.5-45.6) 10/25/18 04:34 MCV 87 fl (84-94) 10/25/18 04:34 MCH 30 pg (28-32) 10/25/18 04:34 MCHC 34 % (32-34) 10/25/18 04:34 RDW 14.0 % (13.2-15.2) 10/25/18 04:34 Plt Count 206 K/mm3 (140-440) 10/25/18 04:34 Lymph % (Auto) 24.4 % (13.4-35.0) 10/25/18 04:34 [place] % (Auto) 12.3 % (0.0-7.3) H 10/25/18 04:34 Eos % (Auto) 0.5 % (0.0-4.3) 10/25/18 04:34 Baso % (Auto) 0.7 % (0.0-1.8) 10/25/18 04:34 Lymph # 2.1 K/mm3 (1.2-5.4) 10/25/18 04:34 [place] # 1.1 K/mm3 (0.0-0.8) H 10/25/18 04:34 Eos # 0.0 K/mm3 (0.0-0.4) 10/25/18 04:34 Baso # 0.1 K/mm3 (0.0-0.1) 10/25/18 04:34 Add Manual Diff Complete 10/23/18 06:21 Total Counted 100 10/23/18 06:21 Seg Neutrophils % 62.1 % (40.0-70.0) 10/25/18 04:34 Seg Neuts % (Manual) 91.0 % (40.0-70.0) H 10/23/18 06:21 1.0 % 10/23/18 06:21 5.0 % (13.4-35.0) L 10/23/18 06:21 Reactive Lymphs % (Man) 0 % 10/23/18 06:21 3.0 % (0.0-7.3) 10/23/18 06:21 0 % (0.0-4.3) 10/23/18 06:21 0 % (0.0-1.8) 10/23/18 06:21 0 % 10/23/18 06:21 0 % 10/23/18 06:21 0 % 10/23/18 06:21 0 % 10/23/18 06:21 Nucleated RBC % Not Reportable 10/23/18 06:21 Seg Neutrophils # 5.4 K/mm3 (1.8-7.7) 10/25/18 04:34 Seg Neutrophils # Man 20.7 K/mm3 (1.8-7.7) H 10/23/18 06:21 Band Neutrophils # 0.2 K/mm3 10/23/18 06:21 1.1 K/mm3 (1.2-5.4) L 10/23/18 06:21 Abs React Lymphs (Man) 0.0 K/mm3 10/23/18 06:21 0.7 K/mm3 (0.0-0.8) 10/23/18 06:21 0.0 K/mm3 (0.0-0.4) 10/23/18 06:21 0.0 K/mm3 (0.0-0.1) 10/23/18 06:21 0.0 K/mm3 10/23/18 06:21 0.0 K/mm3 10/23/18 06:21 0.0 K/mm3 10/23/18 06:21 Blast Cells # 0.0 K/mm3 10/23/18 06:21 WBC Morphology Not Reportable 10/23/18 06:21 Hypersegmented Neuts Not Reportable 10/23/18 06:21 Hyposegmented Neuts Not Reportable 10/23/18 06:21 Hypogranular Neuts Not Reportable 10/23/18 06:21 Not Reportable 10/23/18 06:21 Not Reportable 10/23/18 06:21 Not Reportable 10/23/18 06:21 Not Reportable 10/23/18 06:21 Not Reportable 10/23/18 06:21 Not Reportable 10/23/18 06:21 Consistent w auto 10/23/18 06:21 Not Reportable 10/23/18 06:21 Plt Clumps, EDTA Not Reportable 10/23/18 06:21 Not Reportable 10/23/18 06:21 Not Reportable 10/23/18 06:21 Not Reportable 10/23/18 06:21 Plt Morphology Comment Not Reportable 10/23/18 06:21 RBC Morphology Normal 10/23/18 06:21 Dimorphic RBCs Not Reportable 10/23/18 06:21 Not Reportable 10/23/18 06:21 Not Reportable 10/23/18 06:21 Not Reportable 10/23/18 06:21 Not Reportable 10/23/18 06:21 Not Reportable 10/23/18 06:21 Not Reportable 10/23/18 06:21 Not Reportable 10/23/18 06:21 Not Reportable 10/23/18 06:21 Not Reportable 10/23/18 06:21 Not Reportable 10/23/18 06:21 Not Reportable 10/23/18 06:21 Not Reportable 10/23/18 06:21 Not Reportable 10/23/18 06:21 Not Reportable 10/23/18 06:21 Not Reportable 10/23/18 06:21 Not Reportable 10/23/18 06:21 Not Reportable 10/23/18 06:21 Not Reportable 10/23/18 06:21 Not Reportable 10/23/18 06:21 Acanthocytes (Spur) Not Reportable 10/23/18 06:21 [place] Not Reportable 10/23/18 06:21 Not Reportable 10/23/18 06:21 Not Reportable 10/23/18 06:21 Not Reportable 10/23/18 06:21 Not Reportable 10/23/18 06:21 Hem Pathologist Commnt No 10/23/18 06:21 PT 14.4 Sec. (12.2-14.9) 10/24/18 10:48 INR 1.15 (0.87-1.13) H 10/24/18 10:48 APTT 27.8 Sec. (24.2-36.6) 10/23/18 11:50 POC ABG pH 7.543 (7.35-7.45) H 10/23/18 01:42 POC ABG pCO2 < 30 (35-45) L 10/23/18 01:42 POC ABG pO2 95 (80-105) 10/23/18 01:42 POC ABG HCO3 18.5 (22-26 mml/L) 10/23/18 01:42 POC ABG Total CO2 19 (23-27mmol/L) 10/23/18 01:42 POC ABG O2 Sat 98 10/23/18 01:42 POC ABG Base Excess -4 ((-2) - (+3)mmol/L) 10/23/18 01:42 3 % 10/23/18 01:42 Sodium 144 mmol/L (137-145) 10/25/18 04:34 Potassium 3.7 mmol/L (3.6-5.0) 10/25/18 04:34 Chloride 106.2 mmol/L (98-107) 10/25/18 04:34 Carbon Dioxide 30 mmol/L (22-30) 10/25/18 04:34 12 mmol/L 10/25/18 04:34 BUN 5 mg/dL (9-20) L 10/25/18 04:34 0.8 mg/dL (0.8-1.5) 10/25/18 04:34 Estimated GFR > 60 ml/min 10/25/18 04:34 6 % 10/25/18 04:34 Glucose 126 mg/dL (75-100) H 10/25/18 04:34 POC Glucose 118 (70-105) H 10/25/18 06:01 7.8 % (4-6) H 10/25/18 04:34 287 Mosm/kg 10/24/18 Unknown Lactic Acid 1.90 mmol/L (0.7-2.0) 10/22/18 20:10 Calcium 8.5 mg/dL (8.4-10.2) 10/25/18 04:34 Phosphorus 2.20 mg/dL (2.5-4.5) L 10/25/18 04:34 Magnesium 1.90 mg/dL (1.7-2.3) 10/25/18 04:34 0.50 mg/dL (0.1-1.2) 10/25/18 04:34 < 0.2 mg/dL (0-0.2) 10/24/18 10:48 0.2 mg/dL 10/24/18 10:48 AST 54 units/L (5-40) H 10/25/18 04:34 ALT 24 units/L (7-56) 10/25/18 04:34 40 units/L (35-129) 10/25/18 04:34 43.0 umol/L (25-60) 10/22/18 20:10 < 0.010 ng/mL (0.00-0.029) 10/22/18 20:10 6.3 g/dL (6.3-8.2) 10/25/18 04:34 3.8 g/dL (3.9-5) L 10/25/18 04:34 1.5 % 10/25/18 04:34 TSH 1.150 mlU/mL (0.270-4.200) 10/22/18 20:10 Yellow (Yellow) 10/22/18 20:32 Clear (Clear) 10/22/18 20:32 7.0 (5.0-7.0) 10/22/18 20:32 Ur Specific [place] 1.013 (1.003-1.030) 10/22/18 20:32 <15 mg/dl mg/dL (Negative) 10/22/18 20:32 50 mg/dL (Negative) 10/22/18 20:32 Neg mg/dL (Negative) 10/22/18 20:32 Neg (Negative) 10/22/18 20:32 Neg (Negative) 10/22/18 20:32 Neg (Negative) 10/22/18 20:32 < 2.0 mg/dL (<2.0) 10/22/18 20:32 Ur Leukocyte Esterase Neg (Negative) 10/22/18 20:32 < 1.0 /HPF (0.0-6.0) 10/22/18 20:32 2.0 /HPF (0.0-6.0) 10/22/18 20:32 U Epithel Cells (Auto) < 1.0 /HPF (0-13.0) 10/22/18 20:32 Salicylates 6.6 mg/dL (2.8-20.0) 10/24/18 09:32 Presumptive negative 10/22/18 20:09 Presumptive negative 10/22/18 20:09 Acetaminophen < 5.0 ug/mL (10.0-30.0) L 10/24/18 09:32 Ur Barbiturates Screen Presumptive negative 10/22/18 20:09 Ur Phencyclidine Scrn Presumptive negative 10/22/18 20:09 Ur Amphetamines Screen Presumptive negative 10/22/18 20:09 U Benzodiazepines Scrn Presumptive negative 10/22/18 20:09 Presumptive negative 10/22/18 20:09 U Marijuana (THC) Screen Presumptive negative 10/22/18 20:09 Disclamer 10/22/18 20:09 Plasma/Serum Alcohol < 0.01 % (0-0.07) 10/22/18 20:10 Hepatitis A IgM Ab Non-reactive (NonReactive) 10/23/18 01:05 Hep Bs Antigen Non-reactive (Negative) 10/23/18 01:05 Hep B Core IgM Ab Non-reactive (NonReactive) 10/23/18 01:05 Non-reactive (NonReactive) 10/23/18 01:05 Active Medications - Current Medications Current Medications: Generic Name Dose Route Start Last Admin Trade Name Freq PRN Reason Stop Dose Admin Dextrose 50 ml 10/22/18 23:28 10/24/18 10:31 D50w (25gm) Syringe IV 50 ml PRN PRN Administration Hypoglycemia Famotidine 20 mg 10/23/18 22:00 10/24/18 22:03 Pepcid IV 20 mg BID MAGAN Administration Haloperidol Lactate 5 mg 10/23/18 10:00 Haldol IV Q6H PRN Agitation Hydralazine HCl 25 mg 10/23/18 14:00 10/25/18 06:23 Apresoline PO 25 mg Q8HR MAGAN Administration Hydralazine HCl 10 mg 10/23/18 09:09 Apresoline IV Q4HR PRN Hypertension Sodium Chloride 100 mls @ 999 mls/hr 10/23/18 13:00 Nacl 0.9% IV SHADE PRN Hypotension Dextrose 1,000 mls @ 75 mls/hr 10/24/18 14:00 10/25/18 02:51 D10w IV 75 mls/hr DIRECT MAGAN Administration Insulin Human Lispro 0 unit 10/23/18 14:00 10/25/18 06:17 Humalog SUB-Q Not Given Q4HR [facility] Protocol Labetalol HCl 20 mg 10/23/18 09:23 10/23/18 09:54 Normodyne IV 20 mg Q6HR PRN Administration Hypertension Lorazepam 2 mg 10/23/18 10:39 10/23/18 14:50 Ativan IV 2 mg Q4H PRN Administration Agitation Metoclopramide HCl 10 mg 10/22/18 22:08 10/22/18 22:16 Reglan IV 10 mg Q6H PRN Administration Nausea And Vomiting Metoprolol Tartrate 12.5 mg 10/23/18 10:00 10/24/18 22:03 Lopressor PO 12.5 mg BID MAGAN Administration Ondansetron HCl 4 mg 10/22/18 23:10 Zofran IV Q4H PRN Nausea And Vomiting Sodium Chloride 10 ml 10/23/18 10:00 10/24/18 22:05 Sodium Chloride Flush Syringe 10 Ml IV 10 ml BID MAGAN Administration Sodium Chloride 10 ml 10/22/18 23:10 Sodium Chloride Flush Syringe 10 Ml IV PRN PRN LINE FLUSH Nutrition/Malnutrition Assess - Dietary Evaluation Nutrition/Malnutrition Findings: Nutrition Notes Start: 10/23/18 16:33 Freq: Status: Active Protocol: Document 10/23/18 16:33 RM (Rec: 10/23/18 16:38 RM [id number]) Nutrition Notes Need for Assessment generated from: die repair Initial or Follow up Brief Note Other Pertinent Diagnosis AMS, N/V, Drug overdose, R foot wound Current Diet NPO Labs/Tests Reviewed Pertinent Medications Reviewed Height 5 ft 8 in Weight 85.1 kg [place] Body Weight (kg) 70.00 BMI 28.5 Subjective/Other Information Screened for skin risk. Roberto 13 points. Pt and pt sister in room at time of visit. Pt alseep at time of visit. Pt sister stated that [employer] pt appetite was good and that he was eating well. Burn Absent Trauma Absent Nutrition Intervention Follow-Up By: 10/26/18 Additional Comments Follow for PO intakes
--- NOTE | 2018-10-25 09:35 | Progress Note ---
Assessment and Plan - Patient Problems (1) Acute metabolic encephalopathy Current Visit: Yes Status: Acute (2) Intentional drug overdose Current Visit: Yes Status: Acute (3) Isopropyl alcohol poisoning Current Visit: Yes Status: Acute (4) Salicylate overdose Current Visit: Yes Status: Acute Subjective Interval history: awake Objective - Constitutional Vitals: Vital Signs - 12hr 10/24/18 10/24/18 10/24/18 22:00 22:03 22:04 Temperature Pulse Rate 94 H 97 H 95 H Pulse Rate [ From Monitor] Respiratory 18 Rate Blood Pressure 142/82 142/82 142/82 O2 Sat by Pulse 99 Oximetry 10/24/18 10/24/18 10/24/18 22:31 23:00 23:19 Temperature Pulse Rate 95 H 98 H 94 H Pulse Rate [ From Monitor] Respiratory 16 16 15 Rate Blood Pressure 149/72 160/77 142/82 O2 Sat by Pulse 98 99 100 Oximetry 10/24/18 10/24/18 10/25/18 23:31 23:44 00:00 Temperature 98.3 F Pulse Rate 95 H 92 H Pulse Rate [ 91 H From Monitor] Respiratory 17 12 Rate Blood Pressure 142/82 O2 Sat by Pulse 100 99 Oximetry 10/25/18 10/25/18 10/25/18 00:01 00:31 01:01 Temperature Pulse Rate 91 H 89 89 Pulse Rate [ From Monitor] Respiratory 17 18 16 Rate Blood Pressure 146/62 160/77 135/54 O2 Sat by Pulse 99 100 100 Oximetry 10/25/18 10/25/18 10/25/18 01:31 02:00 02:31 Temperature Pulse Rate 92 H 93 H 89 Pulse Rate [ From Monitor] Respiratory 14 18 17 Rate Blood Pressure 135/54 157/82 157/82 O2 Sat by Pulse 99 100 100 Oximetry 10/25/18 10/25/18 10/25/18 03:01 03:31 03:32 Temperature 99.2 F Pulse Rate 85 84 Pulse Rate [ From Monitor] Respiratory 14 13 Rate Blood Pressure 159/78 157/82 O2 Sat by Pulse 100 100 Oximetry 10/25/18 10/25/18 10/25/18 04:00 04:01 04:31 Temperature Pulse Rate 91 H 86 91 H Pulse Rate [ 91 H From Monitor] Respiratory 12 18 19 Rate Blood Pressure 157/82 157/82 O2 Sat by Pulse 99 99 99 Oximetry 10/25/18 10/25/18 10/25/18 05:01 05:31 06:01 Temperature Pulse Rate 90 90 94 H Pulse Rate [ From Monitor] Respiratory 19 18 19 Rate Blood Pressure 157/82 157/82 157/82 O2 Sat by Pulse 100 98 100 Oximetry 10/25/18 10/25/18 10/25/18 06:10 06:23 06:31 Temperature 98.5 F Pulse Rate 93 H 90 Pulse Rate [ From Monitor] Respiratory 17 Rate Blood Pressure 156/80 156/80 O2 Sat by Pulse 100 Oximetry 10/25/18 10/25/18 07:01 08:00 Temperature 98.7 F Pulse Rate 91 H Pulse Rate [ From Monitor] Respiratory 16 Rate Blood Pressure 147/80 O2 Sat by Pulse 97 Oximetry General appearance: Present: no acute distress - EENT Eyes: PERRL, EOM intact ENT: hearing intact - Neck Neck: supple - Respiratory Respiratory effort: normal Respiratory: bilateral: CTA - Labs CBC & Chem 7: 10/25/18 04:34 10/25/18 04:34 Labs: Abnormal lab results 10/24/18 10/24/18 10/24/18 Range/Units 05:20 09:32 10:07 [place] % (Auto) (0.0-7.3) % [place] # (0.0-0.8) K/mm3 INR (0.87-1.13) BUN 7 L (9-20) mg/dL Glucose 164 H (75-100) mg/dL POC Glucose 48 L (70-105) Hemoglobin A1c (4-6) % Calcium 7.7 L (8.4-10.2) mg/dL Phosphorus (2.5-4.5) mg/dL AST (5-40) units/L Albumin (3.9-5) g/dL Acetaminophen < 5.0 L (10.0-30.0) ug/mL 10/24/18 10/24/18 10/24/18 Range/Units 10:48 10:48 11:04 [place] % (Auto) (0.0-7.3) % [place] # (0.0-0.8) K/mm3 INR 1.15 H (0.87-1.13) BUN (9-20) mg/dL Glucose (75-100) mg/dL POC Glucose 151 H (70-105) Hemoglobin A1c (4-6) % Calcium (8.4-10.2) mg/dL Phosphorus (2.5-4.5) mg/dL AST 70 H (5-40) units/L Albumin 3.8 L (3.9-5) g/dL Acetaminophen (10.0-30.0) ug/mL 10/24/18 10/24/18 10/24/18 Range/Units 12:16 14:10 16:13 [place] % (Auto) (0.0-7.3) % [place] # (0.0-0.8) K/mm3 INR (0.87-1.13) BUN (9-20) mg/dL Glucose (75-100) mg/dL POC Glucose 113 H 135 H 139 H (70-105) Hemoglobin A1c (4-6) % Calcium (8.4-10.2) mg/dL Phosphorus (2.5-4.5) mg/dL AST (5-40) units/L Albumin (3.9-5) g/dL Acetaminophen (10.0-30.0) ug/mL 10/24/18 10/24/18 10/25/18 Range/Units 18:20 20:19 00:16 [place] % (Auto) (0.0-7.3) % [place] # (0.0-0.8) K/mm3 INR (0.87-1.13) BUN (9-20) mg/dL Glucose (75-100) mg/dL POC Glucose 152 H 127 H 186 H (70-105) Hemoglobin A1c (4-6) % Calcium (8.4-10.2) mg/dL Phosphorus (2.5-4.5) mg/dL AST (5-40) units/L Albumin (3.9-5) g/dL Acetaminophen (10.0-30.0) ug/mL 10/25/18 10/25/18 10/25/18 Range/Units 02:15 04:34 04:34 [place] % (Auto) 12.3 H (0.0-7.3) % [place] # 1.1 H (0.0-0.8) K/mm3 INR (0.87-1.13) BUN 5 L (9-20) mg/dL Glucose 126 H (75-100) mg/dL POC Glucose 149 H (70-105) Hemoglobin A1c (4-6) % Calcium (8.4-10.2) mg/dL Phosphorus 2.20 L (2.5-4.5) mg/dL AST 54 H (5-40) units/L Albumin 3.8 L (3.9-5) g/dL Acetaminophen (10.0-30.0) ug/mL 10/25/18 10/25/18 Range/Units 04:34 06:01 [place] % (Auto) (0.0-7.3) % [place] # (0.0-0.8) K/mm3 INR (0.87-1.13) BUN (9-20) mg/dL Glucose (75-100) mg/dL POC Glucose 118 H (70-105) Hemoglobin A1c 7.8 H (4-6) % Calcium (8.4-10.2) mg/dL Phosphorus (2.5-4.5) mg/dL AST (5-40) units/L Albumin (3.9-5) g/dL Acetaminophen (10.0-30.0) ug/mL Medications & Allergies - Medications Allergies/Adverse Reactions: Allergies No Known Allergies Allergy (Verified 03/24/13 05:37) Home Medications: Home Medications Medication Instructions Recorded Confirmed Last Taken Type Aspirin EC 81 mg PO QDAY 10/23/18 10/23/18 Unknown History Rosuvastatin Calcium 20 mg PO QDAY 10/23/18 10/23/18 Unknown History Vitamin D3 50,000UNIT CAP 50,000 units PO 1XW 10/23/18 10/23/18 Unknown History glipiZIDE [Glucotrol] 5 mg PO BID 10/23/18 10/23/18 Unknown History Active Medications: Generic Name Dose Route Start Last Admin Trade Name Freq PRN Reason Stop Dose Admin Dextrose 50 ml 10/22/18 23:28 10/24/18 10:31 D50w (25gm) Syringe IV 50 ml PRN PRN Administration Hypoglycemia Famotidine 20 mg 10/23/18 22:00 10/24/18 22:03 Pepcid IV 20 mg BID MAGAN Administration Haloperidol Lactate 5 mg 10/23/18 10:00 Haldol IV Q6H PRN Agitation Hydralazine HCl 25 mg 10/23/18 14:00 10/25/18 06:23 Apresoline PO 25 mg Q8HR MAGAN Administration Hydralazine HCl 10 mg 10/23/18 09:09 Apresoline IV Q4HR PRN Hypertension Sodium Chloride 100 mls @ 999 mls/hr 10/23/18 13:00 Nacl 0.9% IV SHADE PRN Hypotension Dextrose 1,000 mls @ 75 mls/hr 10/24/18 14:00 10/25/18 02:51 D10w IV 75 mls/hr DIRECT MAGAN Administration Insulin Human Lispro 0 unit 10/23/18 14:00 10/25/18 06:17 Humalog SUB-Q Not Given Q4HR MAGAN Protocol Labetalol HCl 20 mg 10/23/18 09:23 10/23/18 09:54 Normodyne IV 20 mg Q6HR PRN Administration Hypertension Lorazepam 2 mg 10/23/18 10:39 10/23/18 14:50 Ativan IV 2 mg Q4H PRN Administration Agitation Metoclopramide HCl 10 mg 10/22/18 22:08 10/22/18 22:16 Reglan IV 10 mg Q6H PRN Administration Nausea And Vomiting Metoprolol Tartrate 12.5 mg 10/23/18 10:00 10/24/18 22:03 Lopressor PO 12.5 mg BID MAGAN Administration Ondansetron HCl 4 mg 10/22/18 23:10 Zofran IV Q4H PRN Nausea And Vomiting Sodium Chloride 10 ml 10/23/18 10:00 10/24/18 22:05 Sodium Chloride Flush Syringe 10 Ml IV 10 ml BID MAGAN Administration Sodium Chloride 10 ml 10/22/18 23:10 Sodium Chloride Flush Syringe 10 Ml IV PRN PRN LINE FLUSH
[2018-10-25] MEDS: LOPRESSOR PO SCH ×2 (10:20→22:48)
[2018-10-25] MEDS: PEPCID IV SCH ×2 (10:22→22:46)
[2018-10-25] MEDS: SODIUM CHLORIDE FLUSH SYRINGE 10 ML IV SCH ×2 (10:22→22:47)
--- NOTE | 2018-10-25 11:50 | Progress Note ---
Assessment and Plan 1. Salicylate toxicity: Patient presented with elevated salicylate level and associated AMS. He underwent hemodialysis twice on 10/23/2018. Continue IV fluids. Salicylate level normal. MS is better. Monitor. 2. FEN: Anion gap MA, improved with HD. Monitor lytes. 3. Acetaminophen OD: S/p Acetylcyteine. 4. Suspected Isopropyl alcohol ingestion: Isopropyl alcohol level ordered. Osmolar gap has improved. Dialyzed twice. No further indication for HD. 5. AMS: Improved. 6. Hypoglycemia: D10 drip. 7. Hypertension: BP controlled. 8. DM. 9. Depression with suicidal ideation. Subjective Date of service: 10/25/18 Interval history: Patient was seen and examined at the bedside. Doing ok. Sitter in the room. Objective - Vital Signs Vital signs: Vital Signs - 12hr 10/25/18 10/25/18 10/25/18 00:00 00:01 00:31 Temperature Pulse Rate 92 H 91 H 89 Pulse Rate [ 91 H From Monitor] Respiratory 12 17 18 Rate Blood Pressure 146/62 160/77 O2 Sat by Pulse 99 99 100 Oximetry 10/25/18 10/25/18 10/25/18 01:01 01:31 02:00 Temperature Pulse Rate 89 92 H 93 H Pulse Rate [ From Monitor] Respiratory 16 14 18 Rate Blood Pressure 135/54 135/54 157/82 O2 Sat by Pulse 100 99 100 Oximetry 10/25/18 10/25/18 10/25/18 02:31 03:01 03:31 Temperature Pulse Rate 89 85 84 Pulse Rate [ From Monitor] Respiratory 17 14 13 Rate Blood Pressure 157/82 159/78 157/82 O2 Sat by Pulse 100 100 100 Oximetry 10/25/18 10/25/18 10/25/18 03:32 04:00 04:01 Temperature 99.2 F Pulse Rate 91 H 86 Pulse Rate [ 91 H From Monitor] Respiratory 12 18 Rate Blood Pressure 157/82 O2 Sat by Pulse 99 99 Oximetry 10/25/18 10/25/18 10/25/18 04:31 05:01 05:31 Temperature Pulse Rate 91 H 90 90 Pulse Rate [ From Monitor] Respiratory 19 19 18 Rate Blood Pressure 157/82 157/82 157/82 O2 Sat by Pulse 99 100 98 Oximetry 10/25/18 10/25/18 10/25/18 06:01 06:10 06:23 Temperature 98.5 F Pulse Rate 94 H 93 H Pulse Rate [ From Monitor] Respiratory 19 Rate Blood Pressure 157/82 156/80 O2 Sat by Pulse 100 Oximetry 10/25/18 10/25/18 10/25/18 06:31 07:01 07:31 Temperature Pulse Rate 90 91 H 90 Pulse Rate [ From Monitor] Respiratory 17 16 16 Rate Blood Pressure 156/80 147/80 147/80 O2 Sat by Pulse 100 97 99 Oximetry 10/25/18 10/25/18 10/25/18 08:00 08:01 08:31 Temperature 98.7 F Pulse Rate 89 85 Pulse Rate [ 89 From Monitor] Respiratory 16 16 15 Rate Blood Pressure 147/80 134/68 O2 Sat by Pulse 100 100 Oximetry 10/25/18 10/25/18 10/25/18 09:01 09:13 09:31 Temperature Pulse Rate 93 H 93 H Pulse Rate [ From Monitor] Respiratory 19 25 H Rate Blood Pressure 134/68 134/68 O2 Sat by Pulse 99 100 100 Oximetry 10/25/18 10/25/18 10/25/18 10:01 10:20 10:31 Temperature Pulse Rate 95 H 92 H 94 H Pulse Rate [ From Monitor] Respiratory 21 16 Rate Blood Pressure 138/76 138/76 138/76 O2 Sat by Pulse 97 100 Oximetry 10/25/18 11:01 Temperature Pulse Rate 93 H Pulse Rate [ From Monitor] Respiratory 19 Rate Blood Pressure 144/73 O2 Sat by Pulse 98 Oximetry - General Appearance General appearance: well-developed, appears stated age, other (no distress) EENT: ATNC, PERRL, hearing intact, vision intact Neck: supple Respiratory: Present: Clear to Ascultation Cardiology: regular, S1S2, no murmurs Gastrointestinal: normoactive bowel sounds, no tenderness, no distended Integumentary: no rash Neurologic: no focal deficit, no asterixis, alert and oriented x3 Musculoskeletal: other (L BKA, no edema) Psychiatric: cooperative - Lab 10/25/18 04:34 10/25/18 04:34 Most recent lab results Calcium 8.5 mg/dL (8.4-10.2) 10/25/18 04:34 Phosphorus 2.20 mg/dL (2.5-4.5) L 10/25/18 04:34 Magnesium 1.90 mg/dL (1.7-2.3) 10/25/18 04:34 Medications & Allergies - Medications Allergies/Adverse Reactions: Allergies No Known Allergies Allergy (Verified 03/24/13 05:37) Home Medications: Home Medications Medication Instructions Recorded Confirmed Last Taken Type Aspirin EC 81 mg PO QDAY 10/23/18 10/23/18 Unknown History Rosuvastatin Calcium 20 mg PO QDAY 10/23/18 10/23/18 Unknown History Vitamin D3 50,000UNIT CAP 50,000 units PO 1XW 10/23/18 10/23/18 Unknown History glipiZIDE [Glucotrol] 5 mg PO BID 10/23/18 10/23/18 Unknown History Active Medications: Generic Name Dose Route Start Last Admin Trade Name Freq PRN Reason Stop Dose Admin Dextrose 50 ml 10/22/18 23:28 10/24/18 10:31 D50w (25gm) Syringe IV 50 ml PRN PRN Administration Hypoglycemia Famotidine 20 mg 10/23/18 22:00 10/25/18 10:22 Pepcid IV 20 mg BID MAGAN Administration Haloperidol Lactate 5 mg 10/23/18 10:00 Haldol IV Q6H PRN Agitation Hydralazine HCl 25 mg 10/23/18 14:00 10/25/18 06:23 Apresoline PO 25 mg Q8HR MAGAN Administration Hydralazine HCl 10 mg 10/23/18 09:09 Apresoline IV Q4HR PRN Hypertension Sodium Chloride 100 mls @ 999 mls/hr 10/23/18 13:00 Nacl 0.9% IV SHADE PRN Hypotension Dextrose 1,000 mls @ 75 mls/hr 10/24/18 14:00 10/25/18 02:51 D10w IV 75 mls/hr DIRECT MAGAN Administration Insulin Human Lispro 0 unit 10/23/18 14:00 10/25/18 10:21 Humalog SUB-Q Not Given Q4HR MAGAN Protocol Labetalol HCl 20 mg 10/23/18 09:23 10/23/18 09:54 Normodyne IV 20 mg Q6HR PRN Administration Hypertension Lorazepam 2 mg 10/23/18 10:39 10/23/18 14:50 Ativan IV 2 mg Q4H PRN Administration Agitation Metoclopramide HCl 10 mg 10/22/18 22:08 10/22/18 22:16 Reglan IV 10 mg Q6H PRN Administration Nausea And Vomiting Metoprolol Tartrate 12.5 mg 10/23/18 10:00 10/25/18 10:20 Lopressor PO 12.5 mg BID MAGAN Administration Ondansetron HCl 4 mg 10/22/18 23:10 Zofran IV Q4H PRN Nausea And Vomiting Sodium Chloride 10 ml 10/23/18 10:00 10/25/18 10:22 Sodium Chloride Flush Syringe 10 Ml IV 10 ml BID MAGAN Administration Sodium Chloride 10 ml 10/22/18 23:10 Sodium Chloride Flush Syringe 10 Ml IV PRN PRN LINE FLUSH
[2018-10-25] MEDS ORDERED: KPHOS 30 MMOL in NACL 0.9% 500 ML 500 ML IV ONE (14:00)
[2018-10-25] MEDS ORDERED: LASIX IV ONE (18:52)
[2018-10-26] MEDS: HumaLOG SUB-Q SCH ×6 (01:56→23:07)
[2018-10-26] MEDS: APRESOLINE PO SCH ×3 (05:43→23:15)
[2018-10-26 07:54] LABS: BUN/Creatinine Ratio 9; Blood Urea Nitrogen 7 mg/dL (9-20); Calcium 9.1 mg/dL (8.4-10.2); Hemolysis Index 11
[2018-10-26] MEDS: LOPRESSOR PO SCH ×2 (10:17→23:15)
[2018-10-26] MEDS: PEPCID IV SCH ×2 (10:17→23:07)
[2018-10-26] MEDS: SODIUM CHLORIDE FLUSH SYRINGE 10 ML IV SCH ×2 (10:17→23:07)
--- NOTE | 2018-10-26 10:28 | Progress Note ---
Assessment and Plan Assessment and plan: The patient is a 58 YO male with history significant for Diabetes mellitus, Dyslipidemia and Depression who presented to [facility] ED with altered mental status. Unable to obtain any history from patient at this time and there was no family member at the bedside. Patient was found confused / altered by his nephew. He is usually conversant and ambulatory. There was 2 empty bottles of Acetaminophen 250 mg and Salicylate (100 pills each) and half empty bottle of Isopropyl alcohol found next to him. Labs were significant for elevated Salicylate and Acetaminophen levels. Poison center recommended hemodialysis due to AMS. Renal function is normal. Nephrology evaluated and patient received urgent hemodialysis. The patient is alert awake oriented, calm, depressed and teary --Intentional overdose; suicidal attempt 1013 status, suicidal watch Psych evaluation --Severe depression; Follow psych evaluation and recommendations --Acetaminophen overdose;present on admission Patient received Acetylcysteine per protocol As recommended by poison control Acetaminophen level within normal limits LFTs mainly AST worsening secondary to Tylenol overdose Supportive care, nephrology following --Salicylate toxicity; salicylate level was within normal limits Patient is more alert and awake today Received urgent hemodialysis upon admission Nephrology following --Suspected isopropyl alcohol ingestion; Nephrology following, hemodialysis as needed --Metabolic encephalopathy;present on admission secondary to drug overdose Resolved back to baseline --Hypomagnesemia; corrected --Hypophosphatemia; corrected --Hyperglycemia/diabetes mellitus; Hypoglycemic episodes,resolved Accu-Chek sliding scale coverage, check A1c --DVT prophylaxis; SCDs Plan of care reviewed with the patient ,patient's nurse and CM Consults and recommendations noted and appreciated Psych evaln noted. Disposition :Medically stable for discharge to [facility] facility. History Interval history: Patient seen and examined ,medial records reviewed. Patient c/o depression No suicidal thoghts or Ideation Vitals stable. Hospitalist Physical - Constitutional Vitals: Temp Pulse Resp BP Pulse Ox 98.9 F 81 16 139/75 99 10/26/18 05:04 10/26/18 10:17 10/26/18 05:04 10/26/18 10:17 10/26/18 09:37 General appearance: Present: no acute distress, well-nourished, obese, other (depressed, teary) - EENT Eyes: Present: PERRL, EOM intact ENT: hearing intact - Neck Neck: Present: supple, normal ROM - Respiratory Respiratory effort: normal Respiratory: bilateral: diminished, negative: rales, rhonchi, wheezing - Cardiovascular Rhythm: regular Heart Sounds: Present: S1 & S2 - Extremities Extremities: no ischemia, pulses intact, No edema - Abdominal General gastrointestinal: soft, non-tender, non-distended, normal bowel sounds - Integumentary Integumentary: Present: clear, warm - Psychiatric Psychiatric: appropriate mood/affect, cooperative, depressed - Neurologic Neurologic: CNII-XII intact, moves all extremities Results - Labs CBC & Chem 7: 10/25/18 04:34 10/26/18 06:33 Labs: Laboratory Last Values WBC 8.7 K/mm3 (4.5-11.0) 10/25/18 04:34 RBC 4.22 M/mm3 (3.65-5.03) 10/25/18 04:34 Hgb 12.6 gm/dl (11.8-15.2) 10/25/18 04:34 Hct 36.9 % (35.5-45.6) 10/25/18 04:34 MCV 87 fl (84-94) 10/25/18 04:34 MCH 30 pg (28-32) 10/25/18 04:34 MCHC 34 % (32-34) 10/25/18 04:34 RDW 14.0 % (13.2-15.2) 10/25/18 04:34 Plt Count 206 K/mm3 (140-440) 10/25/18 04:34 Lymph % (Auto) 24.4 % (13.4-35.0) 10/25/18 04:34 [place] % (Auto) 12.3 % (0.0-7.3) H 10/25/18 04:34 Eos % (Auto) 0.5 % (0.0-4.3) 10/25/18 04:34 Baso % (Auto) 0.7 % (0.0-1.8) 10/25/18 04:34 Lymph # 2.1 K/mm3 (1.2-5.4) 10/25/18 04:34 Freeborn # 1.1 K/mm3 (0.0-0.8) H 10/25/18 04:34 Eos # 0.0 K/mm3 (0.0-0.4) 10/25/18 04:34 Baso # 0.1 K/mm3 (0.0-0.1) 10/25/18 04:34 Add Manual Diff Complete 10/23/18 06:21 Total Counted 100 10/23/18 06:21 Seg Neutrophils % 62.1 % (40.0-70.0) 10/25/18 04:34 Seg Neuts % (Manual) 91.0 % (40.0-70.0) H 10/23/18 06:21 1.0 % 10/23/18 06:21 5.0 % (13.4-35.0) L 10/23/18 06:21 Reactive Lymphs % (Man) 0 % 10/23/18 06:21 3.0 % (0.0-7.3) 10/23/18 06:21 0 % (0.0-4.3) 10/23/18 06:21 0 % (0.0-1.8) 10/23/18 06:21 0 % 10/23/18 06:21 0 % 10/23/18 06:21 0 % 10/23/18 06:21 0 % 10/23/18 06:21 Nucleated RBC % Not Reportable 10/23/18 06:21 Seg Neutrophils # 5.4 K/mm3 (1.8-7.7) 10/25/18 04:34 Seg Neutrophils # Man 20.7 K/mm3 (1.8-7.7) H 10/23/18 06:21 Band Neutrophils # 0.2 K/mm3 10/23/18 06:21 1.1 K/mm3 (1.2-5.4) L 10/23/18 06:21 Abs React Lymphs (Man) 0.0 K/mm3 10/23/18 06:21 0.7 K/mm3 (0.0-0.8) 10/23/18 06:21 0.0 K/mm3 (0.0-0.4) 10/23/18 06:21 0.0 K/mm3 (0.0-0.1) 10/23/18 06:21 0.0 K/mm3 10/23/18 06:21 0.0 K/mm3 10/23/18 06:21 0.0 K/mm3 10/23/18 06:21 Blast Cells # 0.0 K/mm3 10/23/18 06:21 WBC Morphology Not Reportable 10/23/18 06:21 Hypersegmented Neuts Not Reportable 10/23/18 06:21 Hyposegmented Neuts Not Reportable 10/23/18 06:21 Hypogranular Neuts Not Reportable 10/23/18 06:21 Not Reportable 10/23/18 06:21 Not Reportable 10/23/18 06:21 Not Reportable 10/23/18 06:21 Not Reportable 10/23/18 06:21 Not Reportable 10/23/18 06:21 Not Reportable 10/23/18 06:21 Consistent w auto 10/23/18 06:21 Not Reportable 10/23/18 06:21 Plt Clumps, EDTA Not Reportable 10/23/18 06:21 Not Reportable 10/23/18 06:21 Not Reportable 10/23/18 06:21 Not Reportable 10/23/18 06:21 Plt Morphology Comment Not Reportable 10/23/18 06:21 RBC Morphology Normal 10/23/18 06:21 Dimorphic RBCs Not Reportable 10/23/18 06:21 Not Reportable 10/23/18 06:21 Not Reportable 10/23/18 06:21 Not Reportable 10/23/18 06:21 Not Reportable 10/23/18 06:21 Not Reportable 10/23/18 06:21 Not Reportable 10/23/18 06:21 Not Reportable 10/23/18 06:21 Not Reportable 10/23/18 06:21 Not Reportable 10/23/18 06:21 Not Reportable 10/23/18 06:21 Not Reportable 10/23/18 06:21 Not Reportable 10/23/18 06:21 Not Reportable 10/23/18 06:21 Not Reportable 10/23/18 06:21 Not Reportable 10/23/18 06:21 Not Reportable 10/23/18 06:21 Not Reportable 10/23/18 06:21 Not Reportable 10/23/18 06:21 Not Reportable 10/23/18 06:21 Acanthocytes (Spur) Not Reportable 10/23/18 06:21 Rouleaux Not Reportable 10/23/18 06:21 Not Reportable 10/23/18 06:21 Not Reportable 10/23/18 06:21 Not Reportable 10/23/18 06:21 Not Reportable 10/23/18 06:21 Hem Pathologist Commnt No 10/23/18 06:21 PT 14.4 Sec. (12.2-14.9) 10/24/18 10:48 INR 1.15 (0.87-1.13) H 10/24/18 10:48 APTT 27.8 Sec. (24.2-36.6) 10/23/18 11:50 POC ABG pH 7.543 (7.35-7.45) H 10/23/18 01:42 POC ABG pCO2 < 30 (35-45) L 10/23/18 01:42 POC ABG pO2 95 (80-105) 10/23/18 01:42 POC ABG HCO3 18.5 (22-26 mml/L) 10/23/18 01:42 POC ABG Total CO2 19 (23-27mmol/L) 10/23/18 01:42 POC ABG O2 Sat 98 10/23/18 01:42 POC ABG Base Excess -4 ((-2) - (+3)mmol/L) 10/23/18 01:42 3 % 10/23/18 01:42 Sodium 143 mmol/L (137-145) 10/26/18 06:33 Potassium 4.1 mmol/L (3.6-5.0) 10/26/18 06:33 Chloride 104.4 mmol/L (98-107) 10/26/18 06:33 Carbon Dioxide 26 mmol/L (22-30) 10/26/18 06:33 17 mmol/L 10/26/18 06:33 BUN 7 mg/dL (9-20) L 10/26/18 06:33 0.8 mg/dL (0.8-1.5) 10/26/18 06:33 Estimated GFR > 60 ml/min 10/26/18 06:33 9 % 10/26/18 06:33 Glucose 120 mg/dL (75-100) H 10/26/18 06:33 POC Glucose 168 (70-105) H 10/26/18 10:18 7.8 % (4-6) H 10/25/18 04:34 287 Mosm/kg 10/24/18 Unknown Lactic Acid 1.90 mmol/L (0.7-2.0) 10/22/18 20:10 Calcium 9.1 mg/dL (8.4-10.2) 10/26/18 06:33 Phosphorus 4.00 mg/dL (2.5-4.5) D 10/26/18 06:33 Magnesium 1.90 mg/dL (1.7-2.3) 10/25/18 04:34 0.50 mg/dL (0.1-1.2) 10/25/18 04:34 < 0.2 mg/dL (0-0.2) 10/24/18 10:48 0.2 mg/dL 10/24/18 10:48 AST 54 units/L (5-40) H 10/25/18 04:34 ALT 24 units/L (7-56) 10/25/18 04:34 40 units/L (35-129) 10/25/18 04:34 43.0 umol/L (25-60) 10/22/18 20:10 < 0.010 ng/mL (0.00-0.029) 10/22/18 20:10 6.3 g/dL (6.3-8.2) 10/25/18 04:34 3.8 g/dL (3.9-5) L 10/25/18 04:34 1.5 % 10/25/18 04:34 TSH 1.150 mlU/mL (0.270-4.200) 10/22/18 20:10 Yellow (Yellow) 10/22/18 20:32 Clear (Clear) 10/22/18 20:32 7.0 (5.0-7.0) 10/22/18 20:32 Ur Specific [place] 1.013 (1.003-1.030) 10/22/18 20:32 <15 mg/dl mg/dL (Negative) 10/22/18 20:32 50 mg/dL (Negative) 10/22/18 20:32 Neg mg/dL (Negative) 10/22/18 20:32 Neg (Negative) 10/22/18 20:32 Neg (Negative) 10/22/18 20:32 Neg (Negative) 10/22/18 20:32 < 2.0 mg/dL (<2.0) 10/22/18 20:32 Ur Leukocyte Esterase Neg (Negative) 10/22/18 20:32 < 1.0 /HPF (0.0-6.0) 10/22/18 20:32 2.0 /HPF (0.0-6.0) 10/22/18 20:32 U Epithel Cells (Auto) < 1.0 /HPF (0-13.0) 10/22/18 20:32 Salicylates 6.6 mg/dL (2.8-20.0) 10/24/18 09:32 Presumptive negative 10/22/18 20:09 Presumptive negative 10/22/18 20:09 Acetaminophen < 5.0 ug/mL (10.0-30.0) L 10/24/18 09:32 Ur Barbiturates Screen Presumptive negative 10/22/18 20:09 Ur Phencyclidine Scrn Presumptive negative 10/22/18 20:09 Ur Amphetamines Screen Presumptive negative 10/22/18 20:09 U Benzodiazepines Scrn Presumptive negative 10/22/18 20:09 Presumptive negative 10/22/18 20:09 U Marijuana (THC) Screen Presumptive negative 10/22/18 20:09 Disclamer 10/22/18 20:09 Plasma/Serum Alcohol < 0.01 % (0-0.07) 10/22/18 20:10 Hepatitis A IgM Ab Non-reactive (NonReactive) 10/23/18 01:05 Hep Bs Antigen Non-reactive (Negative) 10/23/18 01:05 Hep B Core IgM Ab Non-reactive (NonReactive) 10/23/18 01:05 Non-reactive (NonReactive) 10/23/18 01:05 Active Medications - Current Medications Current Medications: Generic Name Dose Route Start Last Admin Trade Name Freq PRN Reason Stop Dose Admin Dextrose 50 ml 10/22/18 23:28 10/24/18 10:31 D50w (25gm) Syringe IV 50 ml PRN PRN Administration Hypoglycemia Famotidine 20 mg 10/23/18 22:00 10/26/18 10:17 Pepcid IV 20 mg BID MAGAN Administration Haloperidol Lactate 5 mg 10/23/18 10:00 Haldol IV Q6H PRN Agitation Hydralazine HCl 25 mg 10/23/18 14:00 10/26/18 05:43 Apresoline PO 25 mg Q8HR MAGAN Administration Hydralazine HCl 10 mg 10/23/18 09:09 Apresoline IV Q4HR PRN Hypertension Sodium Chloride 100 mls @ 999 mls/hr 10/23/18 13:00 Nacl 0.9% IV SHADE PRN Hypotension Insulin Human Lispro 0 unit 10/23/18 14:00 10/26/18 10:21 Humalog SUB-Q 2 unit Q4HR MAGAN Administration Protocol Labetalol HCl 20 mg 10/23/18 09:23 10/23/18 09:54 Normodyne IV 20 mg Q6HR PRN Administration Hypertension Lorazepam 2 mg 10/23/18 10:39 10/23/18 14:50 Ativan IV 2 mg Q4H PRN Administration Agitation Metoclopramide HCl 10 mg 10/22/18 22:08 10/22/18 22:16 Reglan IV 10 mg Q6H PRN Administration Nausea And Vomiting Metoprolol Tartrate 12.5 mg 10/23/18 10:00 10/26/18 10:17 Lopressor PO 12.5 mg BID MAGAN Administration Ondansetron HCl 4 mg 10/22/18 23:10 Zofran IV Q4H PRN Nausea And Vomiting Sodium Chloride 10 ml 10/23/18 10:00 10/26/18 10:17 Sodium Chloride Flush Syringe 10 Ml IV 10 ml BID MAGAN Administration Sodium Chloride 10 ml 10/22/18 23:10 Sodium Chloride Flush Syringe 10 Ml IV PRN PRN LINE FLUSH Nutrition/Malnutrition Assess - Dietary Evaluation Nutrition/Malnutrition Findings: Nutrition Notes Start: 10/23/18 16:33 Freq: Status: Active Protocol: Document 10/23/18 16:33 RM (Rec: 10/23/18 16:38 RM [id number]) Nutrition Notes 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 Roberto 13 points. Pt and pt sister in room at time of visit. Pt alseep at time of visit. 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 Burn Absent Trauma Absent Nutrition Intervention Follow-Up By: 10/26/18 Additional Comments Follow for PO intakes
--- NOTE | 2018-10-26 13:48 | Consultation ---
History of Present Illness - Reason for Consult Consult date: 10/26/18 Reason for consult: Mental Health Evaluation Requesting physician: SHANNON BLANC - Chief Complaint Chief complaint: "I wanted it to be over" - History of Present Psychiatric Illness 58 y.o. AA male who presented to the ER for intentionally overdosing on Tylenol and Aspirin pills. Today the patient was clam and cooperative during the assessment. He stated that his depression have been "heightened" for several weeks because of his overall health. He stated that he has diabetes and a LAKA. He stated that he reside with his sister and do not do much throughout the day. He acknowledged that he tried to kill himself when he ingested the pills. He stated that he has a hx of depression and took antidepressants in the past that wasn't effective. He stated that he prefer to talk to a therapist about his problems. He rate his depression 8/10, with 10 being the worse. He denies SI/HI's and AVH's. He denies a poor appetite and erratic sleep. He denies recreational drug use and alcohol consumption (etoh). Medications and Allergies Allergies Allergy/AdvReac Type Severity Reaction Status Date / Time No Known Allergies Allergy Verified 03/24/13 05:37 Home Medications Medication Instructions Recorded Confirmed Last Taken Type Aspirin EC 81 mg PO QDAY 10/23/18 10/23/18 Unknown History Rosuvastatin Calcium 20 mg PO QDAY 10/23/18 10/23/18 Unknown History Vitamin D3 50,000UNIT CAP 50,000 units PO 1XW 10/23/18 10/23/18 Unknown History glipiZIDE [Glucotrol] 5 mg PO BID 10/23/18 10/23/18 Unknown History Active Meds: Active Medications Dextrose (D50w (25gm) Syringe) 50 ml IV PRN PRN PRN Reason: Hypoglycemia Last Admin: 10/24/18 10:31 Dose: 50 ml Documented by: Famotidine (Pepcid) 20 mg IV BID [facility] Last Admin: 10/26/18 10:17 Dose: 20 mg Documented by: Haloperidol Lactate (Haldol) 5 mg IV Q6H PRN PRN Reason: Agitation Hydralazine HCl (Apresoline) 25 mg PO Q8HR [facility] Last Admin: 10/26/18 13:14 Dose: 25 mg Documented by: Hydralazine HCl (Apresoline) 10 mg IV Q4HR PRN PRN Reason: Hypertension Sodium Chloride (Nacl 0.9%) 100 mls @ 999 mls/hr IV SHADE PRN PRN Reason: Hypotension Insulin Human Lispro (Humalog) 0 unit SUB-Q Q4HR [facility]; Protocol Last Admin: 10/26/18 10:21 Dose: 2 unit Documented by: Labetalol HCl (Normodyne) 20 mg IV Q6HR PRN PRN Reason: Hypertension Last Admin: 10/23/18 09:54 Dose: 20 mg Documented by: Lorazepam (Ativan) 2 mg IV Q4H PRN PRN Reason: Agitation Last Admin: 10/23/18 14:50 Dose: 2 mg Documented by: Metoclopramide HCl (Reglan) 10 mg IV Q6H PRN PRN Reason: Nausea And Vomiting Last Admin: 10/22/18 22:16 Dose: 10 mg Documented by: Metoprolol Tartrate (Lopressor) 12.5 mg PO BID [facility] Last Admin: 10/26/18 10:17 Dose: 12.5 mg Documented by: Ondansetron HCl (Zofran) 4 mg IV Q4H PRN PRN Reason: Nausea And Vomiting Sodium Chloride (Sodium Chloride Flush Syringe 10 Ml) 10 ml IV BID [facility] Last Admin: 10/26/18 10:17 Dose: 10 ml Documented by: Sodium Chloride (Sodium Chloride Flush Syringe 10 Ml) 10 ml IV PRN PRN PRN Reason: LINE FLUSH Past psychiatric history - Past Medical History Past Medical History: diabetes Past Surgical History: Other (LAKA) - past Psychiatric treatment and history psychiatric treatment history: Hx of depression per the patient. Denies a fam psy hx. - Social History Social history: lives with family Mental Status Exam - Vital signs Last Vital Signs Temp 98.1 F 10/26/18 13:06 Pulse 80 10/26/18 13:14 Resp 18 10/26/18 13:06 BP 102/53 10/26/18 13:06 Pulse Ox 98 10/26/18 13:07 - Exam Narrative exam: MSE: Appearance: calm, cooperative Behavior: regular eye contact Speech: regular rate and tone Mood: "tired" Affect: flat Thought Process: circumstantial Thought Content: denies SI/HI's and AVH's Motor Activity: ambulatory Cognition: A/O x 3 Insight: variable to fair Judgment poor Results Result Diagrams: 10/25/18 04:34 10/27/18 04:23 Abnormal lab results 10/25/18 10/25/18 10/26/18 Range/Units 16:54 22:00 01:46 BUN (9-20) mg/dL Glucose (75-100) mg/dL POC Glucose 183 H 209 H 161 H (70-105) 10/26/18 10/26/18 Range/Units 06:33 10:18 BUN 7 L (9-20) mg/dL Glucose 120 H (75-100) mg/dL POC Glucose 168 H (70-105) All other labs normal. Assessment and Plan Assessment and plan: Impression: MDD, Severe Type. Intentional overdose. Today the patient was calm and cooperative during the assessment. . DDx: R/O Bipolar DO, Adjustment DO Recommendation/Plan: Continue 1013. Risk/Benefits discussed with the patient, he prefer talk therapy at this time. Discussed generalized coping skill with e patient, he verbalized understanding. Dispo: The patient will be referred to inpatient psy once he's medically clear. Staffed with Dr. Gaurav Umanzor.
--- NOTE | 2018-10-26 14:01 | Progress Note ---
Assessment and Plan 1. Salicylate toxicity: Patient presented with elevated salicylate level and associated AMS. He underwent hemodialysis twice on 10/23/2018. Salicylate level normal. MS has improved. Monitor. 2. FEN: Anion gap MA, improved. Monitor lytes. 3. Acetaminophen OD: S/p Acetylcyteine. 4. Suspected Isopropyl alcohol ingestion: Osmolar gap has improved. Dialyzed twice. No further indication for HD. 5. AMS: Improved. 6. Hypoglycemia: Was on D10 drip. 7. Hypertension: BP controlled. 8. DM. 9. Depression with suicidal ideation. Subjective Date of service: 10/26/18 Interval history: Patient was seen and examined at the bedside. Doing ok. Sitter in the room. Objective - Vital Signs Vital signs: Vital Signs - 12hr 10/26/18 10/26/18 10/26/18 05:04 05:43 09:37 Temperature 98.9 F Pulse Rate 81 Respiratory 16 Rate Blood Pressure 139/75 139/75 O2 Sat by Pulse 100 99 Oximetry 10/26/18 10/26/18 10/26/18 10:17 13:06 13:07 Temperature 98.1 F Pulse Rate 81 80 79 Respiratory 18 Rate Blood Pressure 139/75 102/53 O2 Sat by Pulse 96 98 Oximetry 10/26/18 13:14 Temperature Pulse Rate 80 Respiratory Rate Blood Pressure O2 Sat by Pulse Oximetry - General Appearance General appearance: well-developed, well-nourished, appears stated age, other (no dsitress) EENT: ATNC, PERRL, mucous membranes moist, hearing intact, vision intact Neck: supple Respiratory: Present: Clear to Ascultation Cardiology: regular, S1S2, no murmurs Gastrointestinal: normoactive bowel sounds, no tenderness, no distended Integumentary: warm and dry Neurologic: no focal deficit, no asterixis, alert and oriented x3 Musculoskeletal: other (L BKA, no edema) Psychiatric: cooperative - Lab 10/25/18 04:34 10/26/18 06:33 Most recent lab results Calcium 9.1 mg/dL (8.4-10.2) 10/26/18 06:33 Phosphorus 4.00 mg/dL (2.5-4.5) D 10/26/18 06:33 Magnesium 1.90 mg/dL (1.7-2.3) 10/25/18 04:34 Medications & Allergies - Medications Allergies/Adverse Reactions: Allergies No Known Allergies Allergy (Verified 03/24/13 05:37) Home Medications: Home Medications Medication Instructions Recorded Confirmed Last Taken Type Aspirin EC 81 mg PO QDAY 10/23/18 10/23/18 Unknown History Rosuvastatin Calcium 20 mg PO QDAY 10/23/18 10/23/18 Unknown History Vitamin D3 50,000UNIT CAP 50,000 units PO 1XW 10/23/18 10/23/18 Unknown History glipiZIDE [Glucotrol] 5 mg PO BID 10/23/18 10/23/18 Unknown History Active Medications: Generic Name Dose Route Start Last Admin Trade Name Freq PRN Reason Stop Dose Admin Dextrose 50 ml 10/22/18 23:28 10/24/18 10:31 D50w (25gm) Syringe IV 50 ml PRN PRN Administration Hypoglycemia Famotidine 20 mg 10/23/18 22:00 10/26/18 10:17 Pepcid IV 20 mg BID MAGAN Administration Haloperidol Lactate 5 mg 10/23/18 10:00 Haldol IV Q6H PRN Agitation Hydralazine HCl 25 mg 10/23/18 14:00 10/26/18 13:14 Apresoline PO 25 mg Q8HR MAGAN Administration Hydralazine HCl 10 mg 10/23/18 09:09 Apresoline IV Q4HR PRN Hypertension Sodium Chloride 100 mls @ 999 mls/hr 10/23/18 13:00 Nacl 0.9% IV SHADE PRN Hypotension Insulin Human Lispro 0 unit 10/23/18 14:00 10/26/18 10:21 Humalog SUB-Q 2 unit Q4HR MAGAN Administration Protocol Labetalol HCl 20 mg 10/23/18 09:23 10/23/18 09:54 Normodyne IV 20 mg Q6HR PRN Administration Hypertension Lorazepam 2 mg 10/23/18 10:39 10/23/18 14:50 Ativan IV 2 mg Q4H PRN Administration Agitation Metoclopramide HCl 10 mg 10/22/18 22:08 10/22/18 22:16 Reglan IV 10 mg Q6H PRN Administration Nausea And Vomiting Metoprolol Tartrate 12.5 mg 10/23/18 10:00 10/26/18 10:17 Lopressor PO 12.5 mg BID MAGAN Administration Ondansetron HCl 4 mg 10/22/18 23:10 Zofran IV Q4H PRN Nausea And Vomiting Sodium Chloride 10 ml 10/23/18 10:00 10/26/18 10:17 Sodium Chloride Flush Syringe 10 Ml IV 10 ml BID MAGAN Administration Sodium Chloride 10 ml 10/22/18 23:10 Sodium Chloride Flush Syringe 10 Ml IV PRN PRN LINE FLUSH
--- NOTE | 2018-10-26 18:32 | Progress Note ---
Assessment and Plan Imp: 1. Intentional drug overdose with salicylates, Tylenol, and isopropyl EtOH 2. Chronic nicotine dependence, cigarettes 3. Acute metabolic encephalopathy, resolved Rec: 1. 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 Awake, alert. No complaints except mild, chronic dry cough. Active Medications Dextrose (D50w (25gm) Syringe) 50 ml IV PRN PRN PRN Reason: Hypoglycemia Last Admin: 10/24/18 10:31 Dose: 50 ml Documented by: Famotidine (Pepcid) 20 mg IV BID [facility] Last Admin: 10/26/18 10:17 Dose: 20 mg Documented by: Haloperidol Lactate (Haldol) 5 mg IV Q6H PRN PRN Reason: Agitation Hydralazine HCl (Apresoline) 25 mg PO Q8HR [facility] Last Admin: 10/26/18 13:14 Dose: 25 mg Documented by: Hydralazine HCl (Apresoline) 10 mg IV Q4HR PRN PRN Reason: Hypertension Insulin Human Lispro (Humalog) 0 unit SUB-Q Q4HR [facility]; Protocol Last Admin: 10/26/18 15:55 Dose: 2 unit Documented by: Labetalol HCl (Normodyne) 20 mg IV Q6HR PRN PRN Reason: Hypertension Last Admin: 10/23/18 09:54 Dose: 20 mg Documented by: Lorazepam (Ativan) 2 mg IV Q4H PRN PRN Reason: Agitation Last Admin: 10/23/18 14:50 Dose: 2 mg Documented by: Metoclopramide HCl (Reglan) 10 mg IV Q6H PRN PRN Reason: Nausea And Vomiting Last Admin: 10/22/18 22:16 Dose: 10 mg Documented by: Metoprolol Tartrate (Lopressor) 12.5 mg PO BID [facility] Last Admin: 10/26/18 10:17 Dose: 12.5 mg Documented by: Ondansetron HCl (Zofran) 4 mg IV Q4H PRN PRN Reason: Nausea And Vomiting Sodium Chloride (Sodium Chloride Flush Syringe 10 Ml) 10 ml IV BID [facility] Last Admin: 10/26/18 10:17 Dose: 10 ml Documented by: Sodium Chloride (Sodium Chloride Flush Syringe 10 Ml) 10 ml IV PRN PRN PRN Reason: LINE FLUSH Objective Vital Signs - 12hr 10/26/18 10/26/18 10/26/18 09:37 10:00 10:17 Temperature Pulse Rate 81 Pulse Rate [ 68 Right Radial] Respiratory 20 Rate Blood Pressure 139/75 O2 Sat by Pulse 99 94 Oximetry 10/26/18 10/26/18 10/26/18 13:06 13:07 13:14 Temperature 98.1 F Pulse Rate 80 79 80 Pulse Rate [ Right Radial] Respiratory 18 Rate Blood Pressure 102/53 O2 Sat by Pulse 96 98 Oximetry 10/26/18 15:57 Temperature 99.3 F Pulse Rate 86 Pulse Rate [ Right Radial] Respiratory 18 Rate Blood Pressure 129/62 O2 Sat by Pulse 97 Oximetry Constitutional: no acute distress, alert Eyes: non-icteric ENT: oropharynx moist Neck: supple Effort: normal Ascultation: Bilateral: clear Cardiovascular: regular rate and rhythm Gastrointestinal: normoactive bowel sounds, soft, non-tender, non-distended Integumentary: normal Extremities: no cyanosis Neurologic: normal mental status, non-focal exam, pupils equal and round, CN II- XII normal Psychiatric: mood appropriate, affect normal CBC and BMP: 10/25/18 04:34 10/26/18 06:33 ABG, PT/INR, D-dimer: ABG POC ABG pH 7.543 (7.35-7.45) H 10/23/18 01:42 POC ABG pCO2 < 30 (35-45) L 10/23/18 01:42 POC ABG pO2 95 (80-105) 10/23/18 01:42 POC ABG HCO3 18.5 (22-26 mml/L) 10/23/18 01:42 POC ABG Total CO2 19 (23-27mmol/L) 10/23/18 01:42 POC ABG O2 Sat 98 10/23/18 01:42 PT/INR, D-dimer PT 14.4 Sec. (12.2-14.9) 10/24/18 10:48 INR 1.15 (0.87-1.13) H 10/24/18 10:48 Abnormal lab findings: Abnormal Labs 07/08/0710/22/18 10/22/18 19:59 20:10 20:10 WBC 12.7 H MCHC 35 H Norman % (Auto) Norman # Seg Neuts % (Manual) Lymphocytes % (Manual) Monocytes % (Manual) 12.0 H Seg Neutrophils # Man 7.9 H Lymphocytes # (Manual) Monocytes # (Manual) 1.5 H PT INR APTT POC ABG pH POC ABG pCO2 Potassium 3.4 L Carbon Dioxide 21 L BUN Glucose 137 H POC Glucose 118 H Hemoglobin A1c Calcium Phosphorus Magnesium AST Total Protein Albumin Salicylates Acetaminophen 10/22/18 10/22/18 10/22/18 20:10 20:10 22:01 WBC MCHC Norman % (Auto) Norman # Seg Neuts % (Manual) Lymphocytes % (Manual) Monocytes % (Manual) Seg Neutrophils # Man Lymphocytes # (Manual) Monocytes # (Manual) PT INR APTT POC ABG pH POC ABG pCO2 Potassium Carbon Dioxide BUN Glucose POC Glucose Hemoglobin A1c Calcium Phosphorus Magnesium AST Total Protein Albumin Salicylates 34.0 H 40.1 H Acetaminophen 146.2 H 10/22/18 10/22/18 10/22/18 23:24 23:24 23:24 WBC MCHC Norman % (Auto) Norman # Seg Neuts % (Manual) Lymphocytes % (Manual) Monocytes % (Manual) Seg Neutrophils # Man Lymphocytes # (Manual) Monocytes # (Manual) PT INR APTT 23.7 L POC ABG pH POC ABG pCO2 Potassium Carbon Dioxide BUN Glucose POC Glucose Hemoglobin A1c Calcium Phosphorus Magnesium AST Total Protein Albumin Salicylates 49.4 H Acetaminophen 168.6 H 10/23/18 10/23/18 10/23/18 01:05 01:05 01:42 WBC MCHC Norman % (Auto) Norman # Seg Neuts % (Manual) Lymphocytes % (Manual) Monocytes % (Manual) Seg Neutrophils # Man Lymphocytes # (Manual) Monocytes # (Manual) PT INR APTT POC ABG pH 7.543 H POC ABG pCO2 < 30 L Potassium Carbon Dioxide BUN Glucose POC Glucose Hemoglobin A1c Calcium Phosphorus Magnesium AST Total Protein Albumin Salicylates 49.1 H Acetaminophen 151.1 H 10/23/18 10/23/18 10/23/18 02:06 06:21 06:21 WBC 22.8 H MCHC Norman % (Auto) Norman # Seg Neuts % (Manual) 91.0 H Lymphocytes % (Manual) 5.0 L Monocytes % (Manual) Seg Neutrophils # Man 20.7 H Lymphocytes # (Manual) 1.1 L Monocytes # (Manual) PT INR APTT POC ABG pH POC ABG pCO2 Potassium Carbon Dioxide 20 L BUN Glucose 234 H POC Glucose 296 H Hemoglobin A1c Calcium 8.3 L D Phosphorus Magnesium AST Total Protein Albumin Salicylates Acetaminophen 10/23/18 10/23/18 10/23/18 06:21 06:21 06:21 WBC MCHC Norman % (Auto) Norman # Seg Neuts % (Manual) Lymphocytes % (Manual) Monocytes % (Manual) Seg Neutrophils # Man Lymphocytes # (Manual) Monocytes # (Manual) PT 15.4 H INR 1.25 H APTT POC ABG pH POC ABG pCO2 Potassium Carbon Dioxide BUN Glucose POC Glucose Hemoglobin A1c Calcium Phosphorus Magnesium AST Total Protein Albumin Salicylates 32.2 H Acetaminophen 65.3 H 10/23/18 10/23/18 10/23/18 06:21 07:58 08:57 WBC MCHC Norman % (Auto) Norman # Seg Neuts % (Manual) Lymphocytes % (Manual) Monocytes % (Manual) Seg Neutrophils # Man Lymphocytes # (Manual) Monocytes # (Manual) PT INR APTT POC ABG pH POC ABG pCO2 Potassium Carbon Dioxide BUN Glucose POC Glucose 202 H 202 H Hemoglobin A1c Calcium Phosphorus 2.20 L Magnesium 1.50 L AST Total Protein Albumin Salicylates Acetaminophen 10/23/18 10/23/18 10/23/18 09:15 09:15 10:12 WBC MCHC Norman % (Auto) Norman # Seg Neuts % (Manual) Lymphocytes % (Manual) Monocytes % (Manual) Seg Neutrophils # Man Lymphocytes # (Manual) Monocytes # (Manual) PT INR APTT POC ABG pH POC ABG pCO2 Potassium Carbon Dioxide BUN Glucose POC Glucose 174 H Hemoglobin A1c Calcium Phosphorus Magnesium AST Total Protein Albumin Salicylates 29.8 H Acetaminophen 51.0 H 10/23/18 10/23/18 10/23/18 10:29 11:50 11:50 WBC MCHC Norman % (Auto) Norman # Seg Neuts % (Manual) Lymphocytes % (Manual) Monocytes % (Manual) Seg Neutrophils # Man Lymphocytes # (Manual) Monocytes # (Manual) PT 16.4 H INR 1.36 H APTT POC ABG pH POC ABG pCO2 Potassium Carbon Dioxide BUN Glucose POC Glucose 180 H Hemoglobin A1c Calcium Phosphorus Magnesium AST 58 H Total Protein Albumin Salicylates Acetaminophen 10/23/18 10/23/18 10/23/18 14:26 18:32 20:40 WBC MCHC Norman % (Auto) Norman # Seg Neuts % (Manual) Lymphocytes % (Manual) Monocytes % (Manual) Seg Neutrophils # Man Lymphocytes # (Manual) Monocytes # (Manual) PT INR APTT POC ABG pH POC ABG pCO2 Potassium Carbon Dioxide BUN Glucose POC Glucose 169 H 152 H Hemoglobin A1c Calcium Phosphorus Magnesium AST 69 H Total Protein Albumin Salicylates Acetaminophen 10/23/18 10/24/18 10/24/18 21:31 02:10 03:44 WBC MCHC Norman % (Auto) Norman # Seg Neuts % (Manual) Lymphocytes % (Manual) Monocytes % (Manual) Seg Neutrophils # Man Lymphocytes # (Manual) Monocytes # (Manual) PT INR APTT POC ABG pH POC ABG pCO2 Potassium Carbon Dioxide BUN Glucose POC Glucose 57 L < 40 L 279 H Hemoglobin A1c Calcium Phosphorus Magnesium AST Total Protein Albumin Salicylates Acetaminophen 10/24/18 10/24/18 10/24/18 04:08 05:20 05:20 WBC MCHC Norman % (Auto) Norman # Seg Neuts % (Manual) Lymphocytes % (Manual) Monocytes % (Manual) Seg Neutrophils # Man Lymphocytes # (Manual) Monocytes # (Manual) PT INR APTT POC ABG pH POC ABG pCO2 Potassium Carbon Dioxide BUN 7 L Glucose 164 H POC Glucose 215 H Hemoglobin A1c Calcium 7.7 L Phosphorus Magnesium AST 70 H Total Protein 6.0 L Albumin Salicylates Acetaminophen 10/24/18 10/24/18 10/24/18 05:50 09:32 10:07 WBC MCHC Norman % (Auto) Norman # Seg Neuts % (Manual) Lymphocytes % (Manual) Monocytes % (Manual) Seg Neutrophils # Man Lymphocytes # (Manual) Monocytes # (Manual) PT INR APTT POC ABG pH POC ABG pCO2 Potassium Carbon Dioxide BUN Glucose POC Glucose 146 H 48 L Hemoglobin A1c Calcium Phosphorus Magnesium AST Total Protein Albumin Salicylates Acetaminophen < 5.0 L 10/24/18 10/24/18 10/24/18 10:48 10:48 11:04 WBC MCHC Norman % (Auto) Norman # Seg Neuts % (Manual) Lymphocytes % (Manual) Monocytes % (Manual) Seg Neutrophils # Man Lymphocytes # (Manual) Monocytes # (Manual) PT INR 1.15 H APTT POC ABG pH POC ABG pCO2 Potassium Carbon Dioxide BUN Glucose POC Glucose 151 H Hemoglobin A1c Calcium Phosphorus Magnesium AST 70 H Total Protein Albumin 3.8 L Salicylates Acetaminophen 10/24/18 10/24/18 10/24/18 12:16 14:10 16:13 WBC MCHC Norman % (Auto) Norman # Seg Neuts % (Manual) Lymphocytes % (Manual) Monocytes % (Manual) Seg Neutrophils # Man Lymphocytes # (Manual) Monocytes # (Manual) PT INR APTT POC ABG pH POC ABG pCO2 Potassium Carbon Dioxide BUN Glucose POC Glucose 113 H 135 H 139 H Hemoglobin A1c Calcium Phosphorus Magnesium AST Total Protein Albumin Salicylates Acetaminophen 10/24/18 10/24/18 10/25/18 18:20 20:19 00:16 WBC MCHC Norman % (Auto) Norman # Seg Neuts % (Manual) Lymphocytes % (Manual) Monocytes % (Manual) Seg Neutrophils # Man Lymphocytes # (Manual) Monocytes # (Manual) PT INR APTT POC ABG pH POC ABG pCO2 Potassium Carbon Dioxide BUN Glucose POC Glucose 152 H 127 H 186 H Hemoglobin A1c Calcium Phosphorus Magnesium AST Total Protein Albumin Salicylates Acetaminophen 10/25/18 10/25/18 10/25/18 02:15 04:34 04:34 WBC MCHC Norman % (Auto) 12.3 H Norman # 1.1 H Seg Neuts % (Manual) Lymphocytes % (Manual) Monocytes % (Manual) Seg Neutrophils # Man Lymphocytes # (Manual) Monocytes # (Manual) PT INR APTT POC ABG pH POC ABG pCO2 Potassium Carbon Dioxide BUN 5 L Glucose 126 H POC Glucose 149 H Hemoglobin A1c Calcium Phosphorus 2.20 L Magnesium AST 54 H Total Protein Albumin 3.8 L Salicylates Acetaminophen 10/25/18 10/25/18 10/25/18 04:34 06:01 07:42 WBC MCHC Norman % (Auto) Norman # Seg Neuts % (Manual) Lymphocytes % (Manual) Monocytes % (Manual) Seg Neutrophils # Man Lymphocytes # (Manual) Monocytes # (Manual) PT INR APTT POC ABG pH POC ABG pCO2 Potassium Carbon Dioxide BUN Glucose POC Glucose 118 H 154 H Hemoglobin A1c 7.8 H Calcium Phosphorus Magnesium AST Total Protein Albumin Salicylates Acetaminophen 10/25/18 10/25/18 10/25/18 11:58 16:54 22:00 WBC MCHC Norman % (Auto) Norman # Seg Neuts % (Manual) Lymphocytes % (Manual) Monocytes % (Manual) Seg Neutrophils # Man Lymphocytes # (Manual) Monocytes # (Manual) PT INR APTT POC ABG pH POC ABG pCO2 Potassium Carbon Dioxide BUN Glucose POC Glucose 238 H 183 H 209 H Hemoglobin A1c Calcium Phosphorus Magnesium AST Total Protein Albumin Salicylates Acetaminophen 10/26/18 10/26/18 10/26/18 01:46 06:33 10:18 WBC MCHC Norman % (Auto) Norman # Seg Neuts % (Manual) Lymphocytes % (Manual) Monocytes % (Manual) Seg Neutrophils # Man Lymphocytes # (Manual) Monocytes # (Manual) PT INR APTT POC ABG pH POC ABG pCO2 Potassium Carbon Dioxide BUN 7 L Glucose 120 H POC Glucose 161 H 168 H Hemoglobin A1c Calcium Phosphorus Magnesium AST Total Protein Albumin Salicylates Acetaminophen 10/26/18 13:40 WBC MCHC Norman % (Auto) Norman # Seg Neuts % (Manual) Lymphocytes % (Manual) Monocytes % (Manual) Seg Neutrophils # Man Lymphocytes # (Manual) Monocytes # (Manual) PT INR APTT POC ABG pH POC ABG pCO2 Potassium Carbon Dioxide BUN Glucose POC Glucose 199 H Hemoglobin A1c Calcium Phosphorus Magnesium AST Total Protein Albumin Salicylates Acetaminophen Chest x-ray: report reviewed, image reviewed (clear lungs)
[2018-10-27] MEDS: HumaLOG SUB-Q SCH ×5 (02:27→18:04)
[2018-10-27] MEDS: APRESOLINE PO SCH ×2 (05:39→13:18)
[2018-10-27 05:41] LABS: BUN/Creatinine Ratio 11; Blood Urea Nitrogen 8 mg/dL (9-20); Calcium 8.7 mg/dL (8.4-10.2); Hemolysis Index 4
[2018-10-27] MEDS: PEPCID IV SCH (09:48)
[2018-10-27] MEDS: LOPRESSOR PO SCH (09:48)
[2018-10-27] MEDS: SODIUM CHLORIDE FLUSH SYRINGE 10 ML IV SCH (09:48)
--- NOTE | 2018-10-27 13:18 | Progress Note ---
Subjective - Reason for Consult Consult date: 10/27/18 Reason for consult: Psychiatry Follow-up - Chief Complaint Chief complaint: "I'm well today" 58 y.o. AA male who presented to the ER for intentionally overdosing on Tylenol and Aspirin pills. Today the patient was clam and cooperative during the assessment. He stated that he's doing 'okay" and he hope things will get better for him. He was vague with his answers when asked about the overdose. He was asked about wanting to take an antidepressants, he stated, "No." He denies SI/HI's and AVH's. Mental Status Exam - Vital signs Last Vital Signs Temp 98.6 F 10/27/18 09:44 Pulse 92 H 10/27/18 09:48 Resp 20 10/27/18 09:44 BP 102/60 10/27/18 09:44 Pulse Ox 99 10/27/18 09:44 - Exam Narrative exam: MSE: Appearance: calm, cooperative Behavior: regular eye contact Speech: regular rate and tone Mood: "okay" Affect: congruent to mood Thought Process: circumstantial Thought Content: denies SI/HI's and AVH's Motor Activity: ambulatory Cognition: A/O x 3 Insight: fair Judgment variable Assessment and Plan Impression: MDD, Severe Type. Intentional overdose. Today the patient was calm and cooperative during the assessment. . DDx: R/O Bipolar DO, Adjustment DO Recommendation/Plan: Continue 1013. Risk/Benefits discussed with the patient, he prefer talk therapy at this time. Discussed generalized coping skill with e patient, he verbalized Dispo: The patient was referred to inpatient psy services. . Will staff with Dr. Gaurav Umanzor.
--- NOTE | 2018-10-27 15:20 | Progress Note ---
Assessment and Plan Assessment and plan: The patient is a 58 YO male with history significant for Diabetes mellitus, Dyslipidemia and Depression who presented to [facility] ED with altered mental status. Unable to obtain any history from patient at this time and there was no family member at the bedside. Patient was found confused / altered by his nephew. He is usually conversant and ambulatory. There was 2 empty bottles of Acetaminophen 250 mg and Salicylate (100 pills each) and half empty bottle of Isopropyl alcohol found next to him. Labs were significant for elevated Salicylate and Acetaminophen levels. Poison center recommended hemodialysis due to AMS. Renal function is normal. Nephrology evaluated and patient received urgent hemodialysis. The patient is alert awake oriented, calm, depressed and teary --Gram-positive bacteremia ;Gram Positive rods Blood cultures, probably contamination Discussed with ID, no need for antibiotics --Intentional overdose; suicidal attempt 1013 status, suicidal watch Psych evaluation --Severe depression; Follow psych evaluation and recommendations --Acetaminophen overdose;present on admission Patient received Acetylcysteine per protocol As recommended by poison control Acetaminophen level within normal limits LFTs mainly AST worsening secondary to Tylenol overdose Supportive care, nephrology following --Salicylate toxicity; salicylate level was within normal limits Patient is more alert and awake today Received urgent hemodialysis upon admission Nephrology following --Suspected isopropyl alcohol ingestion; Nephrology following, hemodialysis as needed --Metabolic encephalopathy;present on admission secondary to drug overdose,Resolved back to baseline --Hypomagnesemia; corrected --Hypophosphatemia; corrected --Hyperglycemia/diabetes mellitus; Hypoglycemic episodes,resolved Accu-Chek sliding scale coverage, check A1c --DVT prophylaxis; SCDs Patient is medically stable for discharge Transfer to inpatient psych facility Plan of care with the patient's Disposition :Medically stable for discharge to InPt psyc facility. History Interval history: Patient feels better no new complaints Alert awake oriented Vital signs noted Hospitalist Physical - Constitutional Vitals: Temp Pulse Resp BP Pulse Ox 98.7 F 78 20 119/61 98 10/27/18 13:16 10/27/18 13:16 10/27/18 13:16 10/27/18 13:18 10/27/18 13:16 General appearance: Present: no acute distress, well-nourished, obese, other (depressed, teary) - EENT Eyes: Present: PERRL, EOM intact - Neck Neck: Present: supple, normal ROM - Respiratory Respiratory effort: normal, labored - Cardiovascular Rhythm: regular Heart Sounds: Present: S1 & S2 - Extremities Extremities: no ischemia, pulses intact - Abdominal General gastrointestinal: soft, non-tender - Integumentary Integumentary: Present: clear, warm - Psychiatric Psychiatric: appropriate mood/affect, cooperative - Neurologic Neurologic: CNII-XII intact, moves all extremities Results - Labs CBC & Chem 7: 10/25/18 04:34 10/27/18 04:23 Labs: Laboratory Last Values WBC 8.7 K/mm3 (4.5-11.0) 10/25/18 04:34 RBC 4.22 M/mm3 (3.65-5.03) 10/25/18 04:34 Hgb 12.6 gm/dl (11.8-15.2) 10/25/18 04:34 Hct 36.9 % (35.5-45.6) 10/25/18 04:34 MCV 87 fl (84-94) 10/25/18 04:34 MCH 30 pg (28-32) 10/25/18 04:34 MCHC 34 % (32-34) 10/25/18 04:34 RDW 14.0 % (13.2-15.2) 10/25/18 04:34 Plt Count 206 K/mm3 (140-440) 10/25/18 04:34 Lymph % (Auto) 24.4 % (13.4-35.0) 10/25/18 04:34 [place] % (Auto) 12.3 % (0.0-7.3) H 10/25/18 04:34 Eos % (Auto) 0.5 % (0.0-4.3) 10/25/18 04:34 Baso % (Auto) 0.7 % (0.0-1.8) 10/25/18 04:34 Lymph # 2.1 K/mm3 (1.2-5.4) 10/25/18 04:34 [place] # 1.1 K/mm3 (0.0-0.8) H 10/25/18 04:34 Eos # 0.0 K/mm3 (0.0-0.4) 10/25/18 04:34 Baso # 0.1 K/mm3 (0.0-0.1) 10/25/18 04:34 Add Manual Diff Complete 10/23/18 06:21 Total Counted 100 10/23/18 06:21 Seg Neutrophils % 62.1 % (40.0-70.0) 10/25/18 04:34 Seg Neuts % (Manual) 91.0 % (40.0-70.0) H 10/23/18 06:21 1.0 % 10/23/18 06:21 5.0 % (13.4-35.0) L 10/23/18 06:21 Reactive Lymphs % (Man) 0 % 10/23/18 06:21 3.0 % (0.0-7.3) 10/23/18 06:21 0 % (0.0-4.3) 10/23/18 06:21 0 % (0.0-1.8) 10/23/18 06:21 0 % 10/23/18 06:21 0 % 10/23/18 06:21 0 % 10/23/18 06:21 0 % 10/23/18 06:21 Nucleated RBC % Not Reportable 10/23/18 06:21 Seg Neutrophils # 5.4 K/mm3 (1.8-7.7) 10/25/18 04:34 Seg Neutrophils # Man 20.7 K/mm3 (1.8-7.7) H 10/23/18 06:21 Band Neutrophils # 0.2 K/mm3 10/23/18 06:21 1.1 K/mm3 (1.2-5.4) L 10/23/18 06:21 Abs React Lymphs (Man) 0.0 K/mm3 10/23/18 06:21 0.7 K/mm3 (0.0-0.8) 10/23/18 06:21 0.0 K/mm3 (0.0-0.4) 10/23/18 06:21 0.0 K/mm3 (0.0-0.1) 10/23/18 06:21 0.0 K/mm3 10/23/18 06:21 0.0 K/mm3 10/23/18 06:21 0.0 K/mm3 10/23/18 06:21 Blast Cells # 0.0 K/mm3 10/23/18 06:21 WBC Morphology Not Reportable 10/23/18 06:21 Hypersegmented Neuts Not Reportable 10/23/18 06:21 Hyposegmented Neuts Not Reportable 10/23/18 06:21 Hypogranular Neuts Not Reportable 10/23/18 06:21 Not Reportable 10/23/18 06:21 Not Reportable 10/23/18 06:21 Not Reportable 10/23/18 06:21 Not Reportable 10/23/18 06:21 Not Reportable 10/23/18 06:21 Not Reportable 10/23/18 06:21 Consistent w auto 10/23/18 06:21 Not Reportable 10/23/18 06:21 Plt Clumps, EDTA Not Reportable 10/23/18 06:21 Not Reportable 10/23/18 06:21 Not Reportable 10/23/18 06:21 Not Reportable 10/23/18 06:21 Plt Morphology Comment Not Reportable 10/23/18 06:21 RBC Morphology Normal 10/23/18 06:21 Dimorphic RBCs Not Reportable 10/23/18 06:21 Not Reportable 10/23/18 06:21 Not Reportable 10/23/18 06:21 Not Reportable 10/23/18 06:21 Not Reportable 10/23/18 06:21 Not Reportable 10/23/18 06:21 Not Reportable 10/23/18 06:21 Not Reportable 10/23/18 06:21 Not Reportable 10/23/18 06:21 Not Reportable 10/23/18 06:21 Not Reportable 10/23/18 06:21 Not Reportable 10/23/18 06:21 Not Reportable 10/23/18 06:21 Not Reportable 10/23/18 06:21 Not Reportable 10/23/18 06:21 Not Reportable 10/23/18 06:21 Not Reportable 10/23/18 06:21 Not Reportable 10/23/18 06:21 Not Reportable 10/23/18 06:21 Not Reportable 10/23/18 06:21 Acanthocytes (Spur) Not Reportable 10/23/18 06:21 Rouleaux Not Reportable 10/23/18 06:21 Not Reportable 10/23/18 06:21 Not Reportable 10/23/18 06:21 Not Reportable 10/23/18 06:21 Not Reportable 10/23/18 06:21 Hem Pathologist Commnt No 10/23/18 06:21 PT 14.4 Sec. (12.2-14.9) 10/24/18 10:48 INR 1.15 (0.87-1.13) H 10/24/18 10:48 APTT 27.8 Sec. (24.2-36.6) 10/23/18 11:50 POC ABG pH 7.543 (7.35-7.45) H 10/23/18 01:42 POC ABG pCO2 < 30 (35-45) L 10/23/18 01:42 POC ABG pO2 95 (80-105) 10/23/18 01:42 POC ABG HCO3 18.5 (22-26 mml/L) 10/23/18 01:42 POC ABG Total CO2 19 (23-27mmol/L) 10/23/18 01:42 POC ABG O2 Sat 98 10/23/18 01:42 POC ABG Base Excess -4 ((-2) - (+3)mmol/L) 10/23/18 01:42 3 % 10/23/18 01:42 Sodium 140 mmol/L (137-145) 10/27/18 04:23 Potassium 3.9 mmol/L (3.6-5.0) 10/27/18 04:23 Chloride 101.7 mmol/L (98-107) 10/27/18 04:23 Carbon Dioxide 28 mmol/L (22-30) 10/27/18 04:23 14 mmol/L 10/27/18 04:23 BUN 8 mg/dL (9-20) L 10/27/18 04:23 0.7 mg/dL (0.8-1.5) L 10/27/18 04:23 Estimated GFR > 60 ml/min 10/27/18 04:23 11 % 10/27/18 04:23 Glucose 154 mg/dL (75-100) H 10/27/18 04:23 POC Glucose 349 (70-105) H 10/27/18 10:08 7.8 % (4-6) H 10/25/18 04:34 287 Mosm/kg 10/24/18 Unknown Lactic Acid 1.90 mmol/L (0.7-2.0) 10/22/18 20:10 Calcium 8.7 mg/dL (8.4-10.2) 10/27/18 04:23 Phosphorus 3.40 mg/dL (2.5-4.5) 10/27/18 04:23 Magnesium 1.80 mg/dL (1.7-2.3) 10/27/18 04:23 0.50 mg/dL (0.1-1.2) 10/25/18 04:34 < 0.2 mg/dL (0-0.2) 10/24/18 10:48 0.2 mg/dL 10/24/18 10:48 AST 54 units/L (5-40) H 10/25/18 04:34 ALT 24 units/L (7-56) 10/25/18 04:34 40 units/L (35-129) 10/25/18 04:34 43.0 umol/L (25-60) 10/22/18 20:10 < 0.010 ng/mL (0.00-0.029) 10/22/18 20:10 6.3 g/dL (6.3-8.2) 10/25/18 04:34 3.8 g/dL (3.9-5) L 10/25/18 04:34 1.5 % 10/25/18 04:34 TSH 1.150 mlU/mL (0.270-4.200) 10/22/18 20:10 Yellow (Yellow) 10/22/18 20:32 Clear (Clear) 10/22/18 20:32 7.0 (5.0-7.0) 10/22/18 20:32 Ur Specific [place] 1.013 (1.003-1.030) 10/22/18 20:32 <15 mg/dl mg/dL (Negative) 10/22/18 20:32 50 mg/dL (Negative) 10/22/18 20:32 Neg mg/dL (Negative) 10/22/18 20:32 Neg (Negative) 10/22/18 20:32 Neg (Negative) 10/22/18 20:32 Neg (Negative) 10/22/18 20:32 < 2.0 mg/dL (<2.0) 10/22/18 20:32 Ur Leukocyte Esterase Neg (Negative) 10/22/18 20:32 < 1.0 /HPF (0.0-6.0) 10/22/18 20:32 2.0 /HPF (0.0-6.0) 10/22/18 20:32 U Epithel Cells (Auto) < 1.0 /HPF (0-13.0) 10/22/18 20:32 Salicylates 6.6 mg/dL (2.8-20.0) 10/24/18 09:32 Presumptive negative 10/22/18 20:09 Presumptive negative 10/22/18 20:09 Acetaminophen < 5.0 ug/mL (10.0-30.0) L 10/24/18 09:32 Ur Barbiturates Screen Presumptive negative 10/22/18 20:09 Ur Phencyclidine Scrn Presumptive negative 10/22/18 20:09 Ur Amphetamines Screen Presumptive negative 10/22/18 20:09 U Benzodiazepines Scrn Presumptive negative 10/22/18 20:09 Presumptive negative 10/22/18 20:09 U Marijuana (THC) Screen Presumptive negative 10/22/18 20:09 Disclamer 10/22/18 20:09 Plasma/Serum Alcohol < 0.01 % (0-0.07) 10/22/18 20:10 Hepatitis A IgM Ab Non-reactive (NonReactive) 10/23/18 01:05 Hep Bs Antigen Non-reactive (Negative) 10/23/18 01:05 Hep B Core IgM Ab Non-reactive (NonReactive) 10/23/18 01:05 Non-reactive (NonReactive) 10/23/18 01:05 Active Medications - Current Medications Current Medications: Generic Name Dose Route Start Last Admin Trade Name Freq PRN Reason Stop Dose Admin Dextrose 50 ml 10/22/18 23:28 10/24/18 10:31 D50w (25gm) Syringe IV 50 ml PRN PRN Administration Hypoglycemia Famotidine 20 mg 10/23/18 22:00 10/27/18 09:48 Pepcid IV 20 mg BID MAGAN Administration Haloperidol Lactate 5 mg 10/23/18 10:00 Haldol IV Q6H PRN Agitation Hydralazine HCl 25 mg 10/23/18 14:00 10/27/18 13:18 Apresoline PO 25 mg Q8HR MAGAN Administration Hydralazine HCl 10 mg 10/23/18 09:09 Apresoline IV Q4HR PRN Hypertension Vancomycin HCl 1 gm in 250 mls @ 166.667 mls/hr 10/27/18 16:00 Vancomycin/Ns 1 Gm/250 Ml IV Q12H [facility] Protocol Insulin Human Lispro 0 unit 10/23/18 14:00 10/27/18 13:12 Humalog SUB-Q 6 unit Q4HR MAGAN Administration Protocol Labetalol HCl 20 mg 10/23/18 09:23 10/23/18 09:54 Normodyne IV 20 mg Q6HR PRN Administration Hypertension Lorazepam 2 mg 10/23/18 10:39 10/23/18 14:50 Ativan IV 2 mg Q4H PRN Administration Agitation Metoclopramide HCl 10 mg 10/22/18 22:08 10/22/18 22:16 Reglan IV 10 mg Q6H PRN Administration Nausea And Vomiting Metoprolol Tartrate 12.5 mg 10/23/18 10:00 10/27/18 09:48 Lopressor PO 12.5 mg BID MAGAN Administration Ondansetron HCl 4 mg 10/22/18 23:10 Zofran IV Q4H PRN Nausea And Vomiting Sodium Chloride 10 ml 10/23/18 10:00 10/27/18 09:48 Sodium Chloride Flush Syringe 10 Ml IV 10 ml BID MAGAN Administration Sodium Chloride 10 ml 10/22/18 23:10 Sodium Chloride Flush Syringe 10 Ml IV PRN PRN LINE FLUSH Nutrition/Malnutrition Assess - Dietary Evaluation Nutrition/Malnutrition Findings: Nutrition Notes Start: 10/23/18 16:33 Freq: Status: Active Protocol: Document 10/26/18 13:45 HUNG (Rec: 10/26/18 13:48 HUNG [email or web address]) Nutrition Notes Initial or Follow up Brief Note Current Diet Regular Height 5 ft 8 in Weight 85.1 kg [place] Body Weight (kg) 70.00 BMI 28.5 Subjective/Other Information Pt has consumed 75% since diet advanced. He reports a fair appetite. Percent of energy/protein needs met: 82% energy 96% pro Is patient on ventilator? No Is Patient Ambulatory and/or Out of Bed Yes REE-(Otoe-St. Jeor-ambulatory/OOB) [ 2132.650 NUTR.[id number]] Calculation Used for Recommendations Otoe-St Jeor Additional Notes Pro needs 0.8-1g/k-85g/ day Fluid needs 1ml/kcal Nutrition Intervention Revisit per MD consult or patient Sign Off request:
[2018-10-27] MEDS ORDERED: VANCOMYCIN/NS 1 GM/250 ML 1 GM/250 ML BAG IV SCH (16:00)
[2018-10-28] MEDS: APRESOLINE PO SCH ×4 (00:03→22:23)
[2018-10-28] MEDS: PEPCID IV SCH ×2 (00:03→11:02)
[2018-10-28] MEDS: LOPRESSOR PO SCH ×3 (00:04→22:22)
[2018-10-28] MEDS: SODIUM CHLORIDE FLUSH SYRINGE 10 ML IV SCH ×3 (00:05→22:23)
[2018-10-28] MEDS: HumaLOG SUB-Q SCH ×5 (00:06→22:32)
--- NOTE | 2018-10-28 09:10 | Progress Note ---
Assessment and Plan 1. Salicylate toxicity: Patient presented with elevated salicylate level and associated AMS. He underwent hemodialysis twice on 10/23/2018. Salicylate level normal. MS has improved. Monitor. 2. FEN: Anion gap MA, improved. Monitor lytes. 3. Acetaminophen OD: S/p Acetylcyteine. 4. Suspected Isopropyl alcohol ingestion: Osmolar gap has improved. Dialyzed twice. No further indication for HD. 5. AMS: Improved. 6. Hypoglycemia: Improved. 7. Hypertension: BP controlled. 8. DM. 9. Depression with suicidal ideation. Will see patient if needed. Subjective Date of service: 10/28/18 Principal diagnosis: Overdose Interval history: Patient was seen and examined at the bedside. Doing ok. Sitter in the room. Objective - Vital Signs Vital signs: Vital Signs - 12hr 10/27/18 10/28/18 10/28/18 23:18 00:03 00:04 Temperature 99.4 F Pulse Rate 91 H 78 78 Respiratory 20 Rate Blood Pressure 120/58 120/58 120/58 O2 Sat by Pulse 95 Oximetry 10/28/18 10/28/18 04:15 06:03 Temperature 99.0 F Pulse Rate 82 Respiratory 20 Rate Blood Pressure 105/52 105/52 O2 Sat by Pulse Oximetry - General Appearance General appearance: well-developed, appears stated age, other (not in distress) EENT: ATNC, PERRL, mucous membranes moist, hearing intact, vision intact Neck: supple Respiratory: Present: Clear to Ascultation Cardiology: regular, S1S2, no murmurs Gastrointestinal: normoactive bowel sounds, no tenderness, no distended Integumentary: warm and dry Neurologic: no focal deficit, no asterixis, alert and oriented x3 Musculoskeletal: other (L BKA, no edema) - Lab 10/25/18 04:34 10/27/18 04:23 Most recent lab results Calcium 8.7 mg/dL (8.4-10.2) 10/27/18 04:23 Phosphorus 3.40 mg/dL (2.5-4.5) 10/27/18 04:23 Magnesium 1.80 mg/dL (1.7-2.3) 10/27/18 04:23 Medications & Allergies - Medications Allergies/Adverse Reactions: Allergies No Known Allergies Allergy (Verified 03/24/13 05:37) Home Medications: Home Medications Medication Instructions Recorded Confirmed Last Taken Type Aspirin EC 81 mg PO QDAY 10/23/18 10/23/18 Unknown History Rosuvastatin Calcium 20 mg PO QDAY 10/23/18 10/23/18 Unknown History Vitamin D3 50,000UNIT CAP 50,000 units PO 1XW 10/23/18 10/23/18 Unknown History glipiZIDE [Glucotrol] 5 mg PO BID 10/23/18 10/23/18 Unknown History Active Medications: Generic Name Dose Route Start Last Admin Trade Name Freq PRN Reason Stop Dose Admin Dextrose 50 ml 10/22/18 23:28 10/24/18 10:31 D50w (25gm) Syringe IV 50 ml PRN PRN Administration Hypoglycemia Famotidine 20 mg 10/23/18 22:00 10/28/18 00:03 Pepcid IV 20 mg BID MAGAN Administration Haloperidol Lactate 5 mg 10/23/18 10:00 Haldol IV Q6H PRN Agitation Hydralazine HCl 25 mg 10/23/18 14:00 10/28/18 06:03 Apresoline PO Not Given Q8HR MAGAN Hydralazine HCl 10 mg 10/23/18 09:09 Apresoline IV Q4HR PRN Hypertension Insulin Human Lispro 0 unit 10/27/18 18:00 10/28/18 00:06 Humalog SUB-Q 4 unit ACHS MAGAN Administration Protocol Labetalol HCl 20 mg 10/23/18 09:23 10/23/18 09:54 Normodyne IV 20 mg Q6HR PRN Administration Hypertension Lorazepam 2 mg 10/23/18 10:39 10/23/18 14:50 Ativan IV 2 mg Q4H PRN Administration Agitation Metoclopramide HCl 10 mg 10/22/18 22:08 10/22/18 22:16 Reglan IV 10 mg Q6H PRN Administration Nausea And Vomiting Metoprolol Tartrate 12.5 mg 10/23/18 10:00 10/28/18 00:04 Lopressor PO 12.5 mg BID MAGAN Administration Ondansetron HCl 4 mg 10/22/18 23:10 Zofran IV Q4H PRN Nausea And Vomiting Sodium Chloride 10 ml 10/23/18 10:00 10/28/18 00:05 Sodium Chloride Flush Syringe 10 Ml IV 10 ml BID MAGAN Administration Sodium Chloride 10 ml 10/22/18 23:10 Sodium Chloride Flush Syringe 10 Ml IV PRN PRN LINE FLUSH
--- NOTE | 2018-10-28 11:55 | Progress Note ---
Assessment and Plan Assessment and plan: The patient is a 58 YO male with history significant for Diabetes mellitus, Dyslipidemia and Depression who presented to [facility] ED with altered mental status. Unable to obtain any history from patient at this time and there was no family member at the bedside. Patient was found confused / altered by his nephew. He is usually conversant and ambulatory. There was 2 empty bottles of Acetaminophen 250 mg and Salicylate (100 pills each) and half empty bottle of Isopropyl alcohol found next to him. Labs were significant for elevated Salicylate and Acetaminophen levels. Poison center recommended hemodialysis due to AMS. Renal function is normal. Nephrology evaluated and patient received urgent hemodialysis. The patient is alert awake oriented, calm, depressed and teary --Gram-positive bacteremia ;Gram Positive rods Blood cultures, Discussed with ID , contamination, no need for antibiotics, sepsis ruled out Considered ID evaluation if needed --SIRS :present on admission; leukocytosis and tachycardia Noninfectious, resolved --Intentional overdose; suicidal attempt 1013 status, suicidal watch ,Psych following --Severe depression; Follow psych evaluation and recommendations --Acetaminophen overdose;present on admission Patient received Acetylcysteine per protocol As recommended by poison control Acetaminophen level within normal limits LFTs mainly AST worsening secondary to Tylenol overdose Supportive care, nephrology following --Salicylate toxicity; salicylate level was within normal limits Patient is more alert and awake today Received urgent hemodialysis upon admission Nephrology following --Suspected isopropyl alcohol ingestion; Nephrology following, hemodialysis as needed --Metabolic encephalopathy;present on admission secondary to drug overdose,Resolved back to baseline --Hypomagnesemia; corrected --Hypophosphatemia; corrected --Hyperglycemia/diabetes mellitus; Hypoglycemic episodes,resolved Accu-Chek sliding scale coverage, check A1c --DVT prophylaxis; SCDs Patient is medically stable for discharge Transfer to inpatient psych facility Plan of care with the patient's Disposition :Medically stable for discharge to In ps facility. History Interval history: Patient seen and examined Patient feels better no new complaints Remains depressed and sad, still has intermittent suicidal thoughts Vital signs reviewed Hospitalist Physical - Constitutional Vitals: Temp Pulse Resp BP Pulse Ox 99.0 F 82 20 105/52 95 10/28/18 04:15 10/28/18 06:03 10/28/18 04:15 10/28/18 06:03 10/27/18 23:18 General appearance: Present: no acute distress, well-nourished, other (depresse d, ) - EENT Eyes: Present: PERRL, EOM intact - Neck Neck: Present: supple, normal ROM - Respiratory Respiratory effort: normal Respiratory: bilateral: diminished, negative: rales, rhonchi, wheezing - Cardiovascular Rhythm: regular Heart Sounds: Present: S1 & S2 - Extremities Extremities: no ischemia, No edema - Abdominal General gastrointestinal: soft, non-tender, non-distended, normal bowel sounds - Integumentary Integumentary: Present: clear, warm - Psychiatric Psychiatric: appropriate mood/affect, cooperative - Neurologic Neurologic: CNII-XII intact, moves all extremities Results - Labs CBC & Chem 7: 10/25/18 04:34 10/27/18 04:23 Labs: Laboratory Last Values WBC 8.7 K/mm3 (4.5-11.0) 10/25/18 04:34 RBC 4.22 M/mm3 (3.65-5.03) 10/25/18 04:34 Hgb 12.6 gm/dl (11.8-15.2) 10/25/18 04:34 Hct 36.9 % (35.5-45.6) 10/25/18 04:34 MCV 87 fl (84-94) 10/25/18 04:34 MCH 30 pg (28-32) 10/25/18 04:34 MCHC 34 % (32-34) 10/25/18 04:34 RDW 14.0 % (13.2-15.2) 10/25/18 04:34 Plt Count 206 K/mm3 (140-440) 10/25/18 04:34 Lymph % (Auto) 24.4 % (13.4-35.0) 10/25/18 04:34 Ritchie % (Auto) 12.3 % (0.0-7.3) H 10/25/18 04:34 Eos % (Auto) 0.5 % (0.0-4.3) 10/25/18 04:34 Baso % (Auto) 0.7 % (0.0-1.8) 10/25/18 04:34 Lymph # 2.1 K/mm3 (1.2-5.4) 10/25/18 04:34 Ritchie # 1.1 K/mm3 (0.0-0.8) H 10/25/18 04:34 Eos # 0.0 K/mm3 (0.0-0.4) 10/25/18 04:34 Baso # 0.1 K/mm3 (0.0-0.1) 10/25/18 04:34 Add Manual Diff Complete 10/23/18 06:21 Total Counted 100 10/23/18 06:21 Seg Neutrophils % 62.1 % (40.0-70.0) 10/25/18 04:34 Seg Neuts % (Manual) 91.0 % (40.0-70.0) H 10/23/18 06:21 1.0 % 10/23/18 06:21 5.0 % (13.4-35.0) L 10/23/18 06:21 Reactive Lymphs % (Man) 0 % 10/23/18 06:21 3.0 % (0.0-7.3) 10/23/18 06:21 0 % (0.0-4.3) 10/23/18 06:21 0 % (0.0-1.8) 10/23/18 06:21 0 % 10/23/18 06:21 0 % 10/23/18 06:21 0 % 10/23/18 06:21 0 % 10/23/18 06:21 Nucleated RBC % Not Reportable 10/23/18 06:21 Seg Neutrophils # 5.4 K/mm3 (1.8-7.7) 10/25/18 04:34 Seg Neutrophils # Man 20.7 K/mm3 (1.8-7.7) H 10/23/18 06:21 Band Neutrophils # 0.2 K/mm3 10/23/18 06:21 1.1 K/mm3 (1.2-5.4) L 10/23/18 06:21 Abs React Lymphs (Man) 0.0 K/mm3 10/23/18 06:21 0.7 K/mm3 (0.0-0.8) 10/23/18 06:21 0.0 K/mm3 (0.0-0.4) 10/23/18 06:21 0.0 K/mm3 (0.0-0.1) 10/23/18 06:21 0.0 K/mm3 10/23/18 06:21 0.0 K/mm3 10/23/18 06:21 0.0 K/mm3 10/23/18 06:21 Blast Cells # 0.0 K/mm3 10/23/18 06:21 WBC Morphology Not Reportable 10/23/18 06:21 Hypersegmented Neuts Not Reportable 10/23/18 06:21 Hyposegmented Neuts Not Reportable 10/23/18 06:21 Hypogranular Neuts Not Reportable 10/23/18 06:21 Not Reportable 10/23/18 06:21 Not Reportable 10/23/18 06:21 Not Reportable 10/23/18 06:21 Not Reportable 10/23/18 06:21 Not Reportable 10/23/18 06:21 Not Reportable 10/23/18 06:21 Consistent w auto 10/23/18 06:21 Not Reportable 10/23/18 06:21 Plt Clumps, EDTA Not Reportable 10/23/18 06:21 Not Reportable 10/23/18 06:21 Not Reportable 10/23/18 06:21 Not Reportable 10/23/18 06:21 Plt Morphology Comment Not Reportable 10/23/18 06:21 RBC Morphology Normal 10/23/18 06:21 Dimorphic RBCs Not Reportable 10/23/18 06:21 Not Reportable 10/23/18 06:21 Not Reportable 10/23/18 06:21 Not Reportable 10/23/18 06:21 Not Reportable 10/23/18 06:21 Not Reportable 10/23/18 06:21 Not Reportable 10/23/18 06:21 Not Reportable 10/23/18 06:21 Not Reportable 10/23/18 06:21 Not Reportable 10/23/18 06:21 Not Reportable 10/23/18 06:21 Not Reportable 10/23/18 06:21 Not Reportable 10/23/18 06:21 Not Reportable 10/23/18 06:21 Not Reportable 10/23/18 06:21 Not Reportable 10/23/18 06:21 Not Reportable 10/23/18 06:21 Not Reportable 10/23/18 06:21 Not Reportable 10/23/18 06:21 Not Reportable 10/23/18 06:21 Acanthocytes (Spur) Not Reportable 10/23/18 06:21 Rouleaux Not Reportable 10/23/18 06:21 Not Reportable 10/23/18 06:21 Not Reportable 10/23/18 06:21 Not Reportable 10/23/18 06:21 Not Reportable 10/23/18 06:21 Hem Pathologist Commnt No 10/23/18 06:21 PT 14.4 Sec. (12.2-14.9) 10/24/18 10:48 INR 1.15 (0.87-1.13) H 10/24/18 10:48 APTT 27.8 Sec. (24.2-36.6) 10/23/18 11:50 POC ABG pH 7.543 (7.35-7.45) H 10/23/18 01:42 POC ABG pCO2 < 30 (35-45) L 10/23/18 01:42 POC ABG pO2 95 (80-105) 10/23/18 01:42 POC ABG HCO3 18.5 (22-26 mml/L) 10/23/18 01:42 POC ABG Total CO2 19 (23-27mmol/L) 10/23/18 01:42 POC ABG O2 Sat 98 10/23/18 01:42 POC ABG Base Excess -4 ((-2) - (+3)mmol/L) 10/23/18 01:42 3 % 10/23/18 01:42 Sodium 140 mmol/L (137-145) 10/27/18 04:23 Potassium 3.9 mmol/L (3.6-5.0) 10/27/18 04:23 Chloride 101.7 mmol/L (98-107) 10/27/18 04:23 Carbon Dioxide 28 mmol/L (22-30) 10/27/18 04:23 14 mmol/L 10/27/18 04:23 BUN 8 mg/dL (9-20) L 10/27/18 04:23 0.7 mg/dL (0.8-1.5) L 10/27/18 04:23 Estimated GFR > 60 ml/min 10/27/18 04:23 11 % 10/27/18 04:23 Glucose 154 mg/dL (75-100) H 10/27/18 04:23 POC Glucose 214 (70-105) H 10/28/18 07:45 7.8 % (4-6) H 10/25/18 04:34 287 Mosm/kg 10/24/18 Unknown Lactic Acid 1.90 mmol/L (0.7-2.0) 10/22/18 20:10 Calcium 8.7 mg/dL (8.4-10.2) 10/27/18 04:23 Phosphorus 3.40 mg/dL (2.5-4.5) 10/27/18 04:23 Magnesium 1.80 mg/dL (1.7-2.3) 10/27/18 04:23 0.50 mg/dL (0.1-1.2) 10/25/18 04:34 < 0.2 mg/dL (0-0.2) 10/24/18 10:48 0.2 mg/dL 10/24/18 10:48 AST 54 units/L (5-40) H 10/25/18 04:34 ALT 24 units/L (7-56) 10/25/18 04:34 40 units/L (35-129) 10/25/18 04:34 43.0 umol/L (25-60) 10/22/18 20:10 < 0.010 ng/mL (0.00-0.029) 10/22/18 20:10 6.3 g/dL (6.3-8.2) 10/25/18 04:34 3.8 g/dL (3.9-5) L 10/25/18 04:34 1.5 % 10/25/18 04:34 TSH 1.150 mlU/mL (0.270-4.200) 10/22/18 20:10 Yellow (Yellow) 10/22/18 20:32 Clear (Clear) 10/22/18 20:32 7.0 (5.0-7.0) 10/22/18 20:32 Ur Specific [place] 1.013 (1.003-1.030) 10/22/18 20:32 <15 mg/dl mg/dL (Negative) 10/22/18 20:32 50 mg/dL (Negative) 10/22/18 20:32 Neg mg/dL (Negative) 10/22/18 20:32 Neg (Negative) 10/22/18 20:32 Neg (Negative) 10/22/18 20:32 Neg (Negative) 10/22/18 20:32 < 2.0 mg/dL (<2.0) 10/22/18 20:32 Ur Leukocyte Esterase Neg (Negative) 10/22/18 20:32 < 1.0 /HPF (0.0-6.0) 10/22/18 20:32 2.0 /HPF (0.0-6.0) 10/22/18 20:32 U Epithel Cells (Auto) < 1.0 /HPF (0-13.0) 10/22/18 20:32 Salicylates 6.6 mg/dL (2.8-20.0) 10/24/18 09:32 Presumptive negative 10/22/18 20:09 Presumptive negative 10/22/18 20:09 Acetaminophen < 5.0 ug/mL (10.0-30.0) L 10/24/18 09:32 Ur Barbiturates Screen Presumptive negative 10/22/18 20:09 Ur Phencyclidine Scrn Presumptive negative 10/22/18 20:09 Ur Amphetamines Screen Presumptive negative 10/22/18 20:09 U Benzodiazepines Scrn Presumptive negative 10/22/18 20:09 Presumptive negative 10/22/18 20:09 U Marijuana (THC) Screen Presumptive negative 10/22/18 20:09 Disclamer 10/22/18 20:09 Plasma/Serum Alcohol < 0.01 % (0-0.07) 10/22/18 20:10 Hepatitis A IgM Ab Non-reactive (NonReactive) 10/23/18 01:05 Hep Bs Antigen Non-reactive (Negative) 10/23/18 01:05 Hep B Core IgM Ab Non-reactive (NonReactive) 10/23/18 01:05 Non-reactive (NonReactive) 10/23/18 01:05 Active Medications - Current Medications Current Medications: Generic Name Dose Route Start Last Admin Trade Name Freq PRN Reason Stop Dose Admin Dextrose 50 ml 10/22/18 23:28 10/24/18 10:31 D50w (25gm) Syringe IV 50 ml PRN PRN Administration Hypoglycemia Famotidine 20 mg 10/28/18 22:00 Pepcid PO BID MAGAN Haloperidol Lactate 5 mg 10/23/18 10:00 Haldol IV Q6H PRN Agitation Hydralazine HCl 25 mg 10/23/18 14:00 10/28/18 06:03 Apresoline PO Not Given Q8HR MAGAN Hydralazine HCl 10 mg 10/23/18 09:09 Apresoline IV Q4HR PRN Hypertension Insulin Human Lispro 0 unit 10/27/18 18:00 10/28/18 11:00 Humalog SUB-Q 3 unit ACHS MAGAN Administration Protocol Labetalol HCl 20 mg 10/23/18 09:23 10/23/18 09:54 Normodyne IV 20 mg Q6HR PRN Administration Hypertension Lorazepam 2 mg 10/23/18 10:39 10/23/18 14:50 Ativan IV 2 mg Q4H PRN Administration Agitation Metoclopramide HCl 10 mg 10/22/18 22:08 10/22/18 22:16 Reglan IV 10 mg Q6H PRN Administration Nausea And Vomiting Metoprolol Tartrate 12.5 mg 10/23/18 10:00 10/28/18 10:59 Lopressor PO 12.5 mg BID MAGAN Administration Ondansetron HCl 4 mg 10/22/18 23:10 Zofran IV Q4H PRN Nausea And Vomiting Sodium Chloride 10 ml 10/23/18 10:00 10/28/18 11:00 Sodium Chloride Flush Syringe 10 Ml IV 10 ml BID MAGAN Administration Sodium Chloride 10 ml 10/22/18 23:10 Sodium Chloride Flush Syringe 10 Ml IV PRN PRN LINE FLUSH Nutrition/Malnutrition Assess - Dietary Evaluation Nutrition/Malnutrition Findings: Nutrition Notes Start: 10/23/18 16:33 Freq: Status: Active Protocol: Document 10/26/18 13:45 HUNG (Rec: 10/26/18 13:48 [id number]) Nutrition Notes Initial or Follow up Brief Note Current Diet Regular Height 5 ft 8 in Weight 85.1 kg [place] Body Weight (kg) 70.00 BMI 28.5 Subjective/Other Information Pt has consumed 75% since diet advanced. He reports a fair appetite. Percent of energy/protein needs met: 82% energy 96% pro Is patient on ventilator? No Is Patient Ambulatory and/or Out of Bed Yes REE-([place]-St[place] Jeor-ambulatory/OOB) [ 2132.650 [id number]] Calculation Used for Recommendations [place] Jeor Additional Notes Pro needs 0.8-1g/k-85g/ day Fluid needs 1ml/kcal Nutrition Intervention Revisit per MD consult or patient Sign Off request:
--- NOTE | 2018-10-28 14:10 | Progress Note ---
Subjective - Reason for Consult Consult date: 10/28/18 Reason for consult: Psychiatric Follow-up Evaluation - Chief Complaint Chief complaint: "I'm trying to keep on pushing on " Patient is a 58 y.o. AA male who presented to the ER for an intentional ove rdose on Tylenol and Aspirin pills. Today the patient is calm and cooperative during the assessment. He stated that he's doing "alright" and wants to keep on pushing. He continues to state that he does not want to take any medication for depression. Per sitter patient has been watching television with no behavioral disturbances. He reports appropriate appetite and sleep. He denies SI/HI's, AVH's, and delusions. Mental Status Exam - Vital signs Last Vital Signs Temp 99.4 F 10/28/18 11:35 Pulse 83 10/28/18 11:35 Resp 18 10/28/18 11:35 BP 112/55 10/28/18 11:35 Pulse Ox 97 10/28/18 11:35 - Exam Narrative exam: Mental Status Exam Appearance: calm, cooperative Behavior: regular eye contact Speech: regular rate and tone Mood: "alright" Affect: congruent to mood Thought Process: circumstantial Thought Content: denies SI/HI's, AVH's, delusions Motor Activity: ambulatory Cognition: A/O x 3 Insight: fair Judgment variable Assessment and Plan Impression: MDD, Severe Type. Intentional overdose. Today the patient is calm and cooperative during the assessment. He denies SI/HI's, A/VH's, and delusions. DDx: R/O Bipolar DO, Adjustment DO Recommendation/Plan: 1. Continue 1013. 2. On 10/29/18 provider will reevaluate the necessity of 1013. 1013 expires on 10/29/18. 3. Patient refuses medication at this time. He prefer talk therapy at this time. Discussed generalized coping skill with e patient, he verbalized understanding. Disposition: The patient was referred to inpatient psychiatric services. Will staff with Dr. Gaurav Umanzor.
[2018-10-28] MEDS ORDERED: MILK OF MAGNESIA PO ONE (17:13)
[2018-10-28] MEDS: COLACE PO SCH (22:22)
[2018-10-28] MEDS: PEPCID PO SCH (22:22)
[2018-10-29] MEDS: APRESOLINE PO SCH (06:14)
[2018-10-29 06:30] LABS: BUN/Creatinine Ratio 10; Blood Urea Nitrogen 8 mg/dL (9-20); Calcium 9.1 mg/dL (8.4-10.2); Hemolysis Index 1
--- NOTE | 2018-10-29 07:53 | Progress Note ---
Assessment and Plan Assessment and plan: The patient is a 58 YO male with history significant for Diabetes mellitus, Dyslipidemia and Depression who presented to [facility] ED with altered mental status. Unable to obtain any history from patient at this time and there was no family member at the bedside. Patient was found confused / altered by his nephew. He is usually conversant and ambulatory. There was 2 empty bottles of Acetaminophen 250 mg and Salicylate (100 pills each) and half empty bottle of Isopropyl alcohol found next to him. Labs were significant for elevated Salicylate and Acetaminophen levels. Poison center recommended hemodialysis due to AMS. Renal function is normal. Nephrology evaluated and patient received urgent hemodialysis. The patient is alert awake oriented, calm, depressed and teary --Gram-positive bacteremia ;Gram Positive rods Blood cultures, Discussed with ID , contamination, no need for antibiotics, sepsis ruled out Considered ID evaluation if needed --SIRS :present on admission; leukocytosis and tachycardia Noninfectious, resolved --Intentional overdose; suicidal attempt 1013 status, suicidal watch ,Psych following --Severe depression; Follow psych evaluation and recommendations --Acetaminophen overdose;present on admission Patient received Acetylcysteine per protocol As recommended by poison control Acetaminophen level within normal limits LFTs mainly AST worsening secondary to Tylenol overdose Supportive care, nephrology following --Salicylate toxicity; salicylate level was within normal limits Patient is more alert and awake today Received urgent hemodialysis upon admission Nephrology following --Suspected isopropyl alcohol ingestion; Nephrology following, hemodialysis as needed --Metabolic encephalopathy;present on admission secondary to drug overdose,Resolved back to baseline --Hypomagnesemia; corrected --Hypophosphatemia; corrected --Hyperglycemia/diabetes mellitus; Hypoglycemic episodes,resolved Accu-Chek sliding scale coverage, check A1c --DVT prophylaxis; SCDs Patient is medically stable for discharge Transfer to inpatient psych facility Plan of care with the patient's Disposition :Medically [facility] History Interval history: Review of systems Constitutional: No fevers, no malaise, no joint pains CVS: No chest pain, no orthopnea, no dyspnea on exertion, no pedal edema GI: No abdominal pain, no diarrhea, no vomiting, no constipation Respiratory: no wheezing, no coughing Hospitalist Physical - Physical exam Narrative exam: General.: Appears well, no distress, nontoxic HEENT: Moist mucous membranes, extraocular muscles intact, no lymphadenopathy Neck: supple Cardiac: S1-S2 heard Lungs: clear to auscultation bilaterally Abdomen: soft , nontender, nondistended, bowel sounds positive Extremities: no edema clubbing or cyanosis Skin: no rash or lesions Neurologic: no gross focal deficits Psych: calm, and cooperative - Constitutional Vitals: Temp Pulse Resp BP Pulse Ox 98.5 F 84 20 106/55 96 10/29/18 04:56 10/29/18 06:14 10/29/18 04:56 10/29/18 06:14 10/29/18 04:56 General appearance: Present: no acute distress, well-nourished, other (depressed, ) Results - Labs CBC & Chem 7: 10/25/18 04:34 10/29/18 05:10 Labs: Laboratory Last Values WBC 8.7 K/mm3 (4.5-11.0) 10/25/18 04:34 RBC 4.22 M/mm3 (3.65-5.03) 10/25/18 04:34 Hgb 12.6 gm/dl (11.8-15.2) 10/25/18 04:34 Hct 36.9 % (35.5-45.6) 10/25/18 04:34 MCV 87 fl (84-94) 10/25/18 04:34 MCH 30 pg (28-32) 10/25/18 04:34 MCHC 34 % (32-34) 10/25/18 04:34 RDW 14.0 % (13.2-15.2) 10/25/18 04:34 Plt Count 206 K/mm3 (140-440) 10/25/18 04:34 Lymph % (Auto) 24.4 % (13.4-35.0) 10/25/18 04:34 [place] % (Auto) 12.3 % (0.0-7.3) H 10/25/18 04:34 Eos % (Auto) 0.5 % (0.0-4.3) 10/25/18 04:34 Baso % (Auto) 0.7 % (0.0-1.8) 10/25/18 04:34 Lymph # 2.1 K/mm3 (1.2-5.4) 10/25/18 04:34 [place] # 1.1 K/mm3 (0.0-0.8) H 10/25/18 04:34 Eos # 0.0 K/mm3 (0.0-0.4) 10/25/18 04:34 Baso # 0.1 K/mm3 (0.0-0.1) 10/25/18 04:34 Add Manual Diff Complete 10/23/18 06:21 Total Counted 100 10/23/18 06:21 Seg Neutrophils % 62.1 % (40.0-70.0) 10/25/18 04:34 Seg Neuts % (Manual) 91.0 % (40.0-70.0) H 10/23/18 06:21 1.0 % 10/23/18 06:21 5.0 % (13.4-35.0) L 10/23/18 06:21 Reactive Lymphs % (Man) 0 % 10/23/18 06:21 3.0 % (0.0-7.3) 10/23/18 06:21 0 % (0.0-4.3) 10/23/18 06:21 0 % (0.0-1.8) 10/23/18 06:21 0 % 10/23/18 06:21 0 % 10/23/18 06:21 0 % 10/23/18 06:21 0 % 10/23/18 06:21 Nucleated RBC % Not Reportable 10/23/18 06:21 Seg Neutrophils # 5.4 K/mm3 (1.8-7.7) 10/25/18 04:34 Seg Neutrophils # Man 20.7 K/mm3 (1.8-7.7) H 10/23/18 06:21 Band Neutrophils # 0.2 K/mm3 10/23/18 06:21 1.1 K/mm3 (1.2-5.4) L 10/23/18 06:21 Abs React Lymphs (Man) 0.0 K/mm3 10/23/18 06:21 0.7 K/mm3 (0.0-0.8) 10/23/18 06:21 0.0 K/mm3 (0.0-0.4) 10/23/18 06:21 0.0 K/mm3 (0.0-0.1) 10/23/18 06:21 0.0 K/mm3 10/23/18 06:21 0.0 K/mm3 10/23/18 06:21 0.0 K/mm3 10/23/18 06:21 Blast Cells # 0.0 K/mm3 10/23/18 06:21 WBC Morphology Not Reportable 10/23/18 06:21 Hypersegmented Neuts Not Reportable 10/23/18 06:21 Hyposegmented Neuts Not Reportable 10/23/18 06:21 Hypogranular Neuts Not Reportable 10/23/18 06:21 Not Reportable 10/23/18 06:21 Not Reportable 10/23/18 06:21 Not Reportable 10/23/18 06:21 Not Reportable 10/23/18 06:21 Not Reportable 10/23/18 06:21 Not Reportable 10/23/18 06:21 Consistent w auto 10/23/18 06:21 Not Reportable 10/23/18 06:21 Plt Clumps, EDTA Not Reportable 10/23/18 06:21 Not Reportable 10/23/18 06:21 Not Reportable 10/23/18 06:21 Not Reportable 10/23/18 06:21 Plt Morphology Comment Not Reportable 10/23/18 06:21 RBC Morphology Normal 10/23/18 06:21 Dimorphic RBCs Not Reportable 10/23/18 06:21 Not Reportable 10/23/18 06:21 Not Reportable 10/23/18 06:21 Not Reportable 10/23/18 06:21 Not Reportable 10/23/18 06:21 Not Reportable 10/23/18 06:21 Not Reportable 10/23/18 06:21 Not Reportable 10/23/18 06:21 Not Reportable 10/23/18 06:21 Not Reportable 10/23/18 06:21 Not Reportable 10/23/18 06:21 Not Reportable 10/23/18 06:21 Not Reportable 10/23/18 06:21 Not Reportable 10/23/18 06:21 Not Reportable 10/23/18 06:21 Not Reportable 10/23/18 06:21 Not Reportable 10/23/18 06:21 Not Reportable 10/23/18 06:21 Not Reportable 10/23/18 06:21 Not Reportable 10/23/18 06:21 Acanthocytes (Spur) Not Reportable 10/23/18 06:21 Rouleaux Not Reportable 10/23/18 06:21 Not Reportable 10/23/18 06:21 Not Reportable 10/23/18 06:21 Not Reportable 10/23/18 06:21 Not Reportable 10/23/18 06:21 Hem Pathologist Commnt No 10/23/18 06:21 PT 14.4 Sec. (12.2-14.9) 10/24/18 10:48 INR 1.15 (0.87-1.13) H 10/24/18 10:48 APTT 27.8 Sec. (24.2-36.6) 10/23/18 11:50 POC ABG pH 7.543 (7.35-7.45) H 10/23/18 01:42 POC ABG pCO2 < 30 (35-45) L 10/23/18 01:42 POC ABG pO2 95 (80-105) 10/23/18 01:42 POC ABG HCO3 18.5 (22-26 mml/L) 10/23/18 01:42 POC ABG Total CO2 19 (23-27mmol/L) 10/23/18 01:42 POC ABG O2 Sat 98 10/23/18 01:42 POC ABG Base Excess -4 ((-2) - (+3)mmol/L) 10/23/18 01:42 3 % 10/23/18 01:42 Sodium 141 mmol/L (137-145) 10/29/18 05:10 Potassium 5.0 mmol/L (3.6-5.0) D 10/29/18 05:10 Chloride 101.3 mmol/L (98-107) 10/29/18 05:10 Carbon Dioxide 30 mmol/L (22-30) 10/29/18 05:10 15 mmol/L 10/29/18 05:10 BUN 8 mg/dL (9-20) L 10/29/18 05:10 0.8 mg/dL (0.8-1.5) 10/29/18 05:10 Estimated GFR > 60 ml/min 10/29/18 05:10 10 % 10/29/18 05:10 Glucose 213 mg/dL (75-100) H 10/29/18 05:10 POC Glucose 219 (70-105) H 10/28/18 22:32 7.8 % (4-6) H 10/25/18 04:34 287 Mosm/kg 10/24/18 Unknown Lactic Acid 1.90 mmol/L (0.7-2.0) 10/22/18 20:10 Calcium 9.1 mg/dL (8.4-10.2) 10/29/18 05:10 Phosphorus 3.40 mg/dL (2.5-4.5) 10/27/18 04:23 Magnesium 1.80 mg/dL (1.7-2.3) 10/27/18 04:23 0.50 mg/dL (0.1-1.2) 10/25/18 04:34 < 0.2 mg/dL (0-0.2) 10/24/18 10:48 0.2 mg/dL 10/24/18 10:48 AST 54 units/L (5-40) H 10/25/18 04:34 ALT 24 units/L (7-56) 10/25/18 04:34 40 units/L (35-129) 10/25/18 04:34 43.0 umol/L (25-60) 10/22/18 20:10 < 0.010 ng/mL (0.00-0.029) 10/22/18 20:10 6.3 g/dL (6.3-8.2) 10/25/18 04:34 3.8 g/dL (3.9-5) L 10/25/18 04:34 1.5 % 10/25/18 04:34 TSH 1.150 mlU/mL (0.270-4.200) 10/22/18 20:10 Yellow (Yellow) 10/22/18 20:32 Clear (Clear) 10/22/18 20:32 7.0 (5.0-7.0) 10/22/18 20:32 Ur Specific [place] 1.013 (1.003-1.030) 10/22/18 20:32 <15 mg/dl mg/dL (Negative) 10/22/18 20:32 50 mg/dL (Negative) 10/22/18 20:32 Neg mg/dL (Negative) 10/22/18 20:32 Neg (Negative) 10/22/18 20:32 Neg (Negative) 10/22/18 20:32 Neg (Negative) 10/22/18 20:32 < 2.0 mg/dL (<2.0) 10/22/18 20:32 Ur Leukocyte Esterase Neg (Negative) 10/22/18 20:32 < 1.0 /HPF (0.0-6.0) 10/22/18 20:32 2.0 /HPF (0.0-6.0) 10/22/18 20:32 U Epithel Cells (Auto) < 1.0 /HPF (0-13.0) 10/22/18 20:32 Salicylates 6.6 mg/dL (2.8-20.0) 10/24/18 09:32 Presumptive negative 10/22/18 20:09 Presumptive negative 10/22/18 20:09 Acetaminophen < 5.0 ug/mL (10.0-30.0) L 10/24/18 09:32 Ur Barbiturates Screen Presumptive negative 10/22/18 20:09 Ur Phencyclidine Scrn Presumptive negative 10/22/18 20:09 Ur Amphetamines Screen Presumptive negative 10/22/18 20:09 U Benzodiazepines Scrn Presumptive negative 10/22/18 20:09 Presumptive negative 10/22/18 20:09 U Marijuana (THC) Screen Presumptive negative 10/22/18 20:09 Disclamer 10/22/18 20:09 Plasma/Serum Alcohol < 0.01 % (0-0.07) 10/22/18 20:10 Hepatitis A IgM Ab Non-reactive (NonReactive) 10/23/18 01:05 Hep Bs Antigen Non-reactive (Negative) 10/23/18 01:05 Hep B Core IgM Ab Non-reactive (NonReactive) 10/23/18 01:05 Non-reactive (NonReactive) 10/23/18 01:05 Active Medications - Current Medications Current Medications: Generic Name Dose Route Start Last Admin Trade Name Freq PRN Reason Stop Dose Admin Dextrose 50 ml 10/22/18 23:28 10/24/18 10:31 D50w (25gm) Syringe IV 50 ml PRN PRN Administration Hypoglycemia Docusate Sodium 100 mg 10/28/18 22:00 10/28/18 22:22 Colace PO 100 mg BID MAGAN Administration Famotidine 20 mg 10/28/18 22:00 10/28/18 22:22 Pepcid PO 20 mg BID MAGAN Administration Glipizide 2.5 mg 10/29/18 08:00 Glucotrol Xl PO DAILY@0800 [facility] Haloperidol Lactate 5 mg 10/23/18 10:00 Haldol IV Q6H PRN Agitation Hydralazine HCl 25 mg 10/23/18 14:00 10/29/18 06:14 Apresoline PO Not Given Q8HR [facility] Insulin Human Lispro 0 unit 10/27/18 18:00 10/28/18 22:32 Humalog SUB-Q 3 unit ACHS MAGAN Administration Protocol Labetalol HCl 20 mg 10/23/18 09:23 10/23/18 09:54 Normodyne IV 20 mg Q6HR PRN Administration Hypertension Lorazepam 2 mg 10/23/18 10:39 10/23/18 14:50 Ativan IV 2 mg Q4H PRN Administration Agitation Metoclopramide HCl 10 mg 10/22/18 22:08 10/22/18 22:16 Reglan IV 10 mg Q6H PRN Administration Nausea And Vomiting Metoprolol Tartrate 12.5 mg 10/23/18 10:00 10/28/18 22:22 Lopressor PO 12.5 mg BID MAGAN Administration Ondansetron HCl 4 mg 10/22/18 23:10 Zofran IV Q4H PRN Nausea And Vomiting Sodium Chloride 10 ml 10/23/18 10:00 10/28/18 22:23 Sodium Chloride Flush Syringe 10 Ml IV 10 ml BID MAGAN Administration Sodium Chloride 10 ml 10/22/18 23:10 Sodium Chloride Flush Syringe 10 Ml IV PRN PRN LINE FLUSH Nutrition/Malnutrition Assess - Dietary Evaluation Nutrition/Malnutrition Findings: Nutrition Notes Start: 10/23/18 16:33 Freq: Status: Active Protocol: Document 10/26/18 13:45 HUNG (Rec: 10/26/18 13:48 HUNG [email or web address]) Nutrition Notes Initial or Follow up Brief Note Current Diet Regular Height 5 ft 8 in Weight 85.1 kg [place] Body Weight (kg) 70.00 BMI 28.5 Subjective/Other Information Pt has consumed 75% since diet advanced. He reports a fair appetite. Percent of energy/protein needs met: 82% energy 96% pro Is patient on ventilator? No Is Patient Ambulatory and/or Out of Bed Yes REE-([facility]. Canales-ambulatory/OOB) [ 2132.650 NUTR.[id number]] Calculation Used for Recommendations [facility] Additional Notes Pro needs 0.8-1g/k-85g/ day Fluid needs 1ml/kcal Nutrition Intervention Revisit per MD consult or patient Sign Off request:
[2018-10-29] MEDS ORDERED: GLUCOTROL XL PO SCH (08:00)
[2018-10-29] MEDS: HumaLOG SUB-Q SCH (09:14)
[2018-10-29] MEDS: PEPCID PO SCH (09:15)
[2018-10-29] MEDS: COLACE PO SCH (09:16)
[2018-10-29] MEDS: SODIUM CHLORIDE FLUSH SYRINGE 10 ML IV SCH (09:16)
[2018-10-29] MEDS: LOPRESSOR PO SCH (09:20)
[2018-10-29 09:21] VITALS: BP 112/58
--- NOTE | 2018-10-29 11:27 | Progress Note ---
Subjective - Reason for Consult Consult date: 10/29/18 Reason for consult: Psychiatry Follow-up - Chief Complaint Chief complaint: "I' need help" Patient is a 58 y.o. AA male who presented to the ER for an intentional overdose on Tylenol and Aspirin pills. Today the patient was calm and cooperative during the assessment. He stated that he' need all the help he can get reference his mental health. He was informed that he will be transferred to a mental health facility, he stated, "Okay, I need that." He denies SI/HI's and AVH's. Mental Status Exam - Vital signs Last Vital Signs Temp 98.5 F 10/29/18 04:56 Pulse 78 10/29/18 09:20 Resp 20 10/29/18 04:56 BP 112/58 10/29/18 09:20 Pulse Ox 96 10/29/18 04:56 - Exam Narrative exam: MSE: Appearance: calm, cooperative Behavior: regular eye contact Speech: regular rate and tone Mood: "a little tired" Affect: flat Thought Process: circumstantial Thought Content: denies SI/HI's and AVH's Motor Activity: ambulatory Cognition: A/O x 3 Insight: fair Judgment variable Assessment and Plan Impression: MDD, Severe Type. Intentional overdose. Today the patient was calm and cooperative during the assessment. . DDx: R/O Bipolar DO, Adjustment DO Recommendation/Plan: Continue 1013. Risk/Benefits discussed with the patient, he prefer talk therapy at this time. Discussed generalized coping skill with e patient, he verbalized understanding. Dispo: The patient was accepted at [facility] for inpatient psy services. Will staff with Dr. Gaurav Umanzor.
== END 2018-10-29 10:13 | disposition short-term general hospital (02) | DRG 917 ==
LOC: ED 19:48 → CC1 23:10 → 3A 10-25 13:54
PROVIDERS: ADMIT Internal Medicine; ATTEND Internal Medicine
PROC: 06HM33Z Insertion of Infusion Device into Right Femoral Vein, Percutaneous Approach (ICD-10-PCS; principal; 2018-10-23)
PROC: B54BZZA Ultrasonography of Right Lower Extremity Veins, Guidance (ICD-10-PCS; 2018-10-23)
PROC: 5A1D80Z Performance of Urinary Filtration, Prolonged Intermittent, 6-18 hours Per Day (ICD-10-PCS; 2018-10-23)
PROC: 4A033R1 Measurement of Arterial Saturation, Peripheral, Percutaneous Approach (ICD-10-PCS; 2018-10-23)
DX: T39.1X2A Poisoning by 4-Aminophenol derivatives, intentional self-harm, initial encounter (principal); G92 Toxic encephalopathy; R78.81 Bacteremia; Z82.49 Family history of ischemic heart disease and other diseases of the circulatory system; T51.2X1A Toxic effect of 2-Propanol, accidental (unintentional), initial encounter; E11.9 Type 2 diabetes mellitus without complications; E78.5 Hyperlipidemia, unspecified; F32.9 Major depressive disorder, single episode, unspecified; T39.092A Poisoning by salicylates, intentional self-harm, initial encounter; Y92.092 Bedroom in other non-institutional residence as the place of occurrence of the external cause; Z89.512 Acquired absence of left leg below knee; Z79.82 Long term (current) use of aspirin; Z79.84 Long term (current) use of oral hypoglycemic drugs
CPT/HCPCS: 36415; 36600; 70450; 70496; 70498; 71045; 74018; 80048; 80053; 80074; 80076; 80307; 80320; 81001; 82140; 82803; 82962; 83036; 83735; 83930; 84100; 84443; 84484; 85007; 85025; 85610; 85730; 87040; 87086; 93005; 93010; 94760; 94770; 99292; G0378; G0480; J0132; J1630; J1815; J1940; J2060; J2310; J2405; J2765; J3475; J3480; J7030; J7040; J7060; J7070; Q9967

== ENCOUNTER 2020-02-10 14:57 | Emergency (ER) | payer MEDICARE ==
[2020-02-10] MEDS ORDERED: DEXTROSE 50% IN WATER (25GM) 50 ML SYRINGE IV ONE ×3 (14:58→23:36)
[2020-02-10] MEDS ORDERED: DEXTROSE 50% IN WATER (25GM) 50 ML VIAL IV ONE ×2 (15:04→15:05)
--- NOTE | 2020-02-10 15:16 | Emergency Department Report ---
ED Altered Mental Status HPI - General Stated Complaint: LOW BS Time Seen by Provider: 02/10/20 15:03 Source: EMS, old records reviewed Mode of arrival: Stretcher Limitations: No Limitations - History of Present Illness Initial Comments: Mr. Villegas is a 60-year-old male with history of major depressive disorder, insulin-dependent diabetes, lower BKA left BKA who presents with altered mental status due to low blood sugar. called 911 because she was unable to wake him up after he injected insulin earlier today. Accu-Cheks per EMS were 10 and 19. EMS was unable to obtain IV access. EMS attempted to place intraosseous device successfully. EMS attempted to place an IO in the right lower extremity. Patient is currently somnolent. Will not respond to voice or pain. MD Complaint: altered mental status, decreased responsiveness -: This afternoon, unknown Severity: severe Context: other (Insulin-dependent diabetes) - Related Data Home Medications Medication Instructions Recorded Confirmed Last Taken Aspirin EC [Halfprin EC] 81 mg PO QDAY 10/23/18 10/23/18 Unknown Rosuvastatin Calcium 20 mg PO QDAY 10/23/18 10/23/18 Unknown Vitamin D3 50,000UNIT CAP 50,000 units PO 1XW 10/23/18 10/23/18 Unknown glipiZIDE [Glucotrol] 5 mg PO BID 10/23/18 10/23/18 Unknown Allergies Allergy/AdvReac Type Severity Reaction Status Date / Time No Known Allergies Allergy Verified 03/24/13 05:37 ED Review of Systems ROS: Stated complaint: LOW BS Other details as noted in HPI Comment: Unobtainable due to pts medical conditions (Altered mental status) ED Past Medical Hx - Past Medical History Previous Medical History?: Yes Hx Diabetes: Yes Additional medical history: Major depressive disorder - Surgical History Additional Surgical History: Hernia Repair, Chest tube placement - Social History Smoking Status: Never Smoker - Medications Home Medications: Home Medications Medication Instructions Recorded Confirmed Last Taken Type Aspirin EC [Halfprin EC] 81 mg PO QDAY 10/23/18 10/23/18 Unknown History Rosuvastatin Calcium 20 mg PO QDAY 10/23/18 10/23/18 Unknown History Vitamin D3 50,000UNIT CAP 50,000 units PO 1XW 10/23/18 10/23/18 Unknown History glipiZIDE [Glucotrol] 5 mg PO BID 10/23/18 10/23/18 Unknown History ED Physical Exam - General General appearance: obtunded, other (Foaming at the mouth, nonrebreather in place,) - Head Head exam: Present: atraumatic, normocephalic - Eye Eye exam: Present: PERRL, conjunctival injection - ENT ENT exam: Present: mucous membranes moist - Neck Neck exam: Present: normal inspection, full ROM - Respiratory Respiratory exam: Present: other (Agonal respirations). Absent: wheezes, rales, rhonchi - Cardiovascular Cardiovascular Exam: Present: regular rate, normal rhythm, normal heart sounds - GI/Abdominal GI/Abdominal exam: Present: soft. Absent: distended, tenderness, guarding, joaquin ound - Extremities Exam Extremities exam: Present: other (Right knee: Intraosseous device inserted just inferior to patella, left below the knee amputation with stump) - Neurological Exam Neurological exam: Present: altered, other (Unarousable to pain or voice) - Skin Skin exam: Present: pallor ED Course Vital Signs 02/10/20 15:16 Pulse Rate 68 Respiratory 18 Rate Blood Pressure 154/77 [Left] O2 Sat by Pulse 98 Oximetry - IO Right Tibia Consent Obtained: emergent situation Time Out Performed: Yes IO Instrument Used to Penetrate the Cortex: standard IO needle Patient Tolerated Procedure: well Complications: none - Lab Data Result diagrams: 02/10/20 15:39 Lab Results 02/10/20 02/10/20 02/10/20 Range/Units 15:26 15:39 17:51 Sodium 139 (137-145) mmol/L Potassium 3.9 (3.6-5.0) mmol/L Chloride 99.7 (98-107) mmol/L Carbon Dioxide 26 (22-30) mmol/L Anion Gap 17 mmol/L BUN 8 L (9-20) mg/dL Creatinine 0.8 (0.8-1.3) mg/dL Estimated GFR > 60 ml/min BUN/Creatinine Ratio 10 % Glucose 149 H (75-100) mg/dL POC Glucose 256 H 137 H (70-105) mg/dL Calcium 9.2 (8.4-10.2) mg/dL - Medical Decision Making After receiving EMS report prior to patient's arrival, charge nurse informed me that patient was obtunded with severe hypoglycemia. Accu-Chek 10 and 19 per EMS. EMS did not have intraosseous or intravenous access. Charge nurse encouraged EMS to place IO device. Upon arrival patient was obtunded. I immediately removed the IO device which EMS informed me did not have bloody aspirate. I placed rapid IO device. Patient received 2 ampoules of dextrose. Approximately 30 seconds after receiving dextrose, patient became alert. He was quite initially confused but able to be oriented. He was cooperative. Patient was observed for 3-1/2 hours. Patient tolerated full meal. He understands to not take any insulin tonight. He has normal kidney function. He is discharged home. Patient has been in his normal state of health. He is symptom-free. He is in good health prior to the hypoglycemic episode. Critical Care Time: Yes Critical care attestation.: If time is entered above; I have spent that time in minutes in the direct care of this critically ill patient, excluding procedure time. 40 minutes of critical care time excluding procedures were used in the care of the patient. I came immediately to the bedside upon patient's arrival. I obtained history from EMS at the bedside. I discussed treatment plan with the nursing team members. I reviewed electronic record. Patient required multiple interventions and reassessments. ED Disposition Clinical Impression: Acute metabolic encephalopathy, Severe diabetic hypoglycemia Disposition: DC-01 TO HOME OR SELFCARE Is pt being admited?: No Does the pt Need Aspirin: No Condition: Stable Instructions: Diabetic Hypoglycemia (ED) Additional Instructions: Please do not take any insulin or diabetic medicine today.
[2020-02-10 16:13] LABS: BUN/Creatinine Ratio 10; Blood Urea Nitrogen 8 mg/dL (9-20); Calcium 9.2 mg/dL (8.4-10.2); Hemolysis Index 9
[2020-02-10 20:55] VITALS: BP 117/60
[2020-02-10] MEDS ORDERED: AMIODARONE 150 MG/3 ML INJ IV ONE (23:36)
== END 2020-02-10 19:50 | disposition home or self-care (01) ==
LOC: ED 14:57
DX: E11.649 Type 2 diabetes mellitus with hypoglycemia without coma (principal); G93.41 Metabolic encephalopathy; Z98.890 Other specified postprocedural states; Z79.899 Other long term (current) drug therapy
CPT/HCPCS: 36415; 36680; 80048; 82962; 99284; J0282

== ENCOUNTER 2020-11-30 11:35 | Emergency (ER) | payer MEDICARE ==
[2020-11-30] MEDS ORDERED: SODIUM CHLORIDE 0.9% 1000 ML 1,000 ML IV ONE (13:48)
--- NOTE | 2020-11-30 13:51 | Emergency Department Report ---
HPI - General Chief Complaint: Syncope Time Seen by Provider: 11/30/20 13:26 - HPI HPI: This is a 60-year-old -[place] male presents to the emergency department via EMS from home with complaint of passing out while smoking a cigarette on the porch. The patient has a history of apt-thlmjej-lldjhtjxs diabetes. He also has a history of issues with constipation. The patient says that he has not had much response to his usual stool softener or laxative, so today the patient took drink Epsom salt. After drinking the Epsom salt is when the patient went out and smoked a cigarette and passed out. He then woke up on the porch floor and got himself up and into the house. He says that he went and sat on the toilet and did not pass any significant stool, but a lot of water came out. He denies any headache, vision change, slurred speech, numbness or paresthesias, fever, chest pain, shortness of breath, abdominal pain. ED Past Medical Hx - Past Medical History Previous Medical History?: Yes Hx Diabetes: Yes Additional medical history: Major depressive disorder - Surgical History Past Surgical History?: Yes Additional Surgical History: Hernia Repair, Chest tube placement, left BKA - Social History Smoking Status: Never Smoker Substance Use Type: None - Medications Home Medications: Home Medications Medication Instructions Recorded Confirmed Last Taken Type Aspirin EC [Halfprin EC] 81 mg PO QDAY 10/23/18 10/23/18 Unknown History Rosuvastatin Calcium 20 mg PO QDAY 10/23/18 10/23/18 Unknown History Vitamin D3 50,000UNIT CAP 50,000 units PO 1XW 10/23/18 10/23/18 Unknown History glipiZIDE [Glucotrol] 5 mg PO BID 10/23/18 10/23/18 Unknown History ED Review of Systems ROS: Stated complaint: SYNCOPAL EPISODE Other details as noted in HPI Comment: All other systems reviewed and negative Constitutional: denies: chills, fever Eyes: denies: eye pain, vision change ENT: denies: ear pain, throat pain Respiratory: denies: cough, shortness of breath Cardiovascular: syncope. denies: chest pain Gastrointestinal: constipation. denies: abdominal pain, vomiting Genitourinary: denies: dysuria, discharge Musculoskeletal: denies: back pain, arthralgia Skin: denies: rash, lesions Neurological: denies: headache, weakness Physical Exam - Physical Exam Vital Signs: Vital Signs 11/30/20 11:45 Temperature 98.7 F Pulse Rate 82 Respiratory 16 Rate Blood Pressure 96/42 O2 Sat by Pulse 96 Oximetry Physical Exam: GENERAL: The patient is well-developed well-nourished. HENT: Normocephalic. Atraumatic. Patient has moist mucous membranes. EYES: Extraocular motions are intact. NECK: Supple. Trachea is midline. CHEST/LUNGS: Clear to auscultation. There is no respiratory distress noted. HEART/CARDIOVASCULAR: Regular. There is no tachycardia. There is no murmur. ABDOMEN: Abdomen is soft, nontender. Patient has normal bowel sounds. There is no abdominal distention. SKIN: Skin is warm and dry. NEURO: The patient is awake, alert, and oriented. The patient is cooperative. The patient has no focal neurologic deficits. Normal speech. Cranial nerves II through XII grossly intact. MUSCULOSKELETAL: There is no tenderness or deformity. There is no limitation range of motion. Left BKA. ED Course Vital Signs 11/30/20 11:45 Temperature 98.7 F Pulse Rate 82 Respiratory 16 Rate Blood Pressure 96/42 O2 Sat by Pulse 96 Oximetry ED Medical Decision Making - Lab Data Result diagrams: 11/30/20 14:14 11/30/20 14:14 Lab Results 11/30/20 11/30/20 11/30/20 Range/Units 14:14 14:14 14:14 WBC 10.9 (4.5-11.0) K/mm3 RBC 4.98 (3.65-5.03) M/mm3 Hgb 15.2 (11.8-15.2) gm/dl Hct 44.6 (35.5-45.6) % MCV 90 (84-94) fl MCH 31 (28-32) pg MCHC 34 (32-34) % RDW 14.0 (13.2-15.2) % Plt Count 284 (140-440) K/mm3 Lymph % (Auto) 16.2 (13.4-35.0) % [place] % (Auto) 8.4 H (0.0-7.3) % Eos % (Auto) 0.7 (0.0-4.3) % Baso % (Auto) 0.5 (0.0-1.8) % Lymph # (Auto) 1.8 (1.2-5.4) K/mm3 [place] # (Auto) 0.9 H (0.0-0.8) K/mm3 Eos # (Auto) 0.1 (0.0-0.4) K/mm3 Baso # (Auto) 0.1 (0.0-0.1) K/mm3 Seg Neutrophils % 74.2 H (40.0-70.0) % Seg Neutrophils # 8.1 H (1.8-7.7) K/mm3 Sodium 139 (137-145) mmol/L Potassium 4.6 (3.6-5.0) mmol/L Chloride 101.1 (98-107) mmol/L Carbon Dioxide 25 (22-30) mmol/L Anion Gap 18 mmol/L BUN 11 (9-20) mg/dL Creatinine 1.2 (0.8-1.3) mg/dL Estimated GFR > 60 ml/min BUN/Creatinine Ratio 9 % Glucose 156 H (75-100) mg/dL Calcium 9.8 (8.4-10.2) mg/dL Total Bilirubin 0.50 (0.1-1.2) mg/dL AST 19 (5-40) units/L ALT 18 (7-56) units/L Alkaline Phosphatase 52 (35-129) units/L Troponin T < 0.010 (0.00-0.029) ng/mL Total Protein 7.5 (6.3-8.2) g/dL Albumin 4.3 (3.9-5) g/dL Albumin/Globulin Ratio 1.3 % TSH 1.190 (0.270-4.200) mlU/mL - EKG Data -: EKG Interpreted by De EKG shows normal: sinus rhythm, axis, intervals, QRS complexes, ST-T waves Rate: normal - EKG Data When compared to previous EKG there are: previous EKG unavailable Interpretation: normal EKG - Medical Decision Making This patient presents to the emergency department with the complaint of having a syncopal episode just prior to presentation. This occurred after the patient drank water with Epsom salts to use as a laxative. He denies any significant abdominal pain. On examination he does not have any focal, motor or sensory deficits and his cranial nerves are intact. During the syncopal episode the patient denies hitting his head and denies any current headache, neck pain, back pain. An EKG was done that does not show any morphology consistent with ST elevation myocardial infarction or any arrhythmia. Labs have been unremarkable including CBC, metabolic panel, negative troponin and normal thyroid function. Initially the patient had some borderline hypotension. However his blood pressure normalized without any IV fluid resuscitation given. He was reevaluated multiple times over more than 5.5 hours and there has been no further syncopal episodes or any presentation of any neurological deficits. The patient did use the restroom multiple times to have a bowel movement. During 1 of those bowel movements the patient saw some blood in his stool. He has a hemoglobin of 15.6. He has been given an outpatient referral for gastroenterology to follow-up regarding his issues with constipation and this rectal bleeding seen. However, he will return to the closest emergency department with any worsening of his symptoms or with any acute distress. Critical Care Time: No Critical care attestation.: If time is entered above; I have spent that time in minutes in the direct care of this critically ill patient, excluding procedure time. ED Disposition Clinical Impression: Rectal bleeding Syncope Qualifiers: Syncope type: unspecified Qualified Code(s): R55 - Syncope and collapse Disposition: 01 HOME / SELF CARE / HOMELESS Is pt being admited?: No Condition: Stable Instructions: Rectal Bleeding, Syncope, Syncope (ED) Additional Instructions: Please follow-up with your primary care physician in the next few days. Please do not drink or consume any further Epsom salt. I have given you a referral for [facility] to follow-up regarding your issues with constipation, as well as the blood seen in your stool. Return to the emergency department with any worsening of your symptoms, new or concerning symptoms not addressed during this current emergency department visit, or with any acute distress. Referrals: PRIMARY MD ROLANDO [Primary Care Provider] - 2-3 Days [facility] [Provider Group] - 2-3 Days Time of Disposition: 18:00
[2020-11-30 14:48] LABS: Basophils # (Auto) 0.1 K/mm3 (0.0-0.1); Basophils % (Auto) 0.5 % (0.0-1.8); Eosinophils # (Auto) 0.1 K/mm3 (0.0-0.4); Eosinophils % (Auto) 0.7 % (0.0-4.3); Hematocrit 44.6 % (35.5-45.6); Hemoglobin 15.2 gm/dl (11.8-15.2); Lymphocytes # (Auto) 1.8 K/mm3 (1.2-5.4); Lymphocytes % (Auto) 16.2 % (13.4-35.0); Mean Corpuscular HGB Conc 34 % (32-34); Mean Corpuscular Volume 90 fl (84-94); Monocytes # (Auto) 0.9 K/mm3 (0.0-0.8); Monocytes % (Auto) 8.4 % (0.0-7.3); Platelet Count 284 K/mm3 (140-440); Red Blood Count 4.98 M/mm3 (3.65-5.03)
[2020-11-30 15:10] LABS: Alanine Aminotransferase 18 units/L (7-56); Albumin 4.3 g/dL (3.9-5); BUN/Creatinine Ratio 9; Blood Urea Nitrogen 11 mg/dL (9-20); Calcium 9.8 mg/dL (8.4-10.2); Hemolysis Index 16
[2020-11-30 18:45] VITALS: BP 133/70
--- NOTE | 2020-12-01 09:22 | Electrocardiograph Report ---
[facility] Test Date: 2020-11-30 Test Time: 17:28:21 Pat Name: LEONORA FABIAN Department: Room: Gender: M [employer] Locator: PK : 1960 Requested By: BERNA LAZO Order Number: [id number] Reading MD: Timo Quiroz Measurements Intervals [place] Rate: 79 P: 29 PA: 151 QRS: 56 QRSD: 79 T: 55 QT: 356 QTc: 408 Interpretive Statements Sinus rhythm No previous ECG available for comparison Electronically Signed On 12-01-2020 9:21:50 EDT by Timo Quiroz
== END 2020-11-30 18:30 | disposition home or self-care (01) ==
LOC: ED 11:35
DX: R55 Syncope and collapse (principal); K62.5 Hemorrhage of anus and rectum; E11.8 Type 2 diabetes mellitus with unspecified complications; F32.9 Major depressive disorder, single episode, unspecified; Z98.890 Other specified postprocedural states
CPT/HCPCS: 36415; 80053; 84443; 84484; 85025; 93005; 99284; J7030